=== PATIENT | male | born 1935 | race Caucasian/White ===

== ENCOUNTER 2016-05-21 13:05 | Outpatient (CLI) | payer OTHER ==
[2015-03-20 16:05] VITALS: BMI 25.8
[2016-05-21 13:24] LABS: BASOPHILS % (AUTO) 0.6 % (0.0-3.0); EOSINOPHILS # (AUTO) 0.1 K/ul (0.0-0.7); HEMATOCRIT 35.9 % (42.0-52.0); HEMOGLOBIN 12.5 g/dl (14.0-18.0); MEAN CORPUSCULAR HEMOGLOBIN 35.4 pg (27.0-31.0); MEAN CORPUSCULAR HGB CONC 34.8 (31.8-35.4); MEAN CORPUSCULAR VOLUME 101.7 fl (80.0-94.0); MONOCYTES # (AUTO) 0.3 K/uL (0.4-2.0); MONOCYTES % (AUTO) 8.9 (0-10); NEUTROPHILS # (AUTO) 1.9 K/ul (2.0-6.9); NEUTROPHILS % (AUTO) 56.5; PLATELET COUNT 158 10^3/uL (140-440); RED BLOOD COUNT 3.53 10^6/ul (4.70-6.10); WHITE BLOOD COUNT 3.36 K/ul (4.2-10.2)
== END 2016-05-21 13:06 | disposition home or self-care (01) ==
LOC: LAB 13:05
PROVIDERS: ATTEND Internal Medicine Hematology & Oncology
DX: D53.9 Nutritional anemia, unspecified (principal)
CPT/HCPCS: 36415; 85025

== ENCOUNTER 2016-08-02 10:29 | Inpatient (IN) | payer OTHER ==
[2016-08-02] MEDS ORDERED: SODIUM CHLORIDE 500 ML IV STA (10:42)
[2016-08-02 11:02] LABS: BASOPHILS % (AUTO) 0.2 % (0.0-3.0); EOSINOPHILS % (AUTO) 0.2 % (0.0-7.0); HEMATOCRIT 35.5 % (42.0-52.0); HEMOGLOBIN 12.3 g/dl (14.0-18.0); IMMATURE GRANULOCYTE % (AUTO) 0.3 % (0.0-5.0); LYMPHOCYTES # (AUTO) 0.2 K/uL (0.60-3.4); LYMPHOCYTES % (AUTO) 3.3 (10.0-50.0); MEAN CORPUSCULAR HEMOGLOBIN 35.2 pg (27.0-31.0); MEAN CORPUSCULAR HGB CONC 34.6 (31.8-35.4); MEAN CORPUSCULAR VOLUME 101.7 fl (80.0-94.0); MONOCYTES # (AUTO) 0.2 K/uL (0.4-2.0); MONOCYTES % (AUTO) 3.3 (0-10); NEUTROPHILS # (AUTO) 5.9 K/ul (2.0-6.9); NEUTROPHILS % (AUTO) 92.7; PLATELET COUNT 131 10^3/uL (140-440); RED BLOOD COUNT 3.49 10^6/ul (4.70-6.10); WHITE BLOOD COUNT 6.31 K/ul (4.2-10.2)
[2016-08-02 11:19] LABS: FLU INTERNAL QC INTERNAL QC VALID; RAPID FLU A NEGATIVE (NEGATIVE); RAPID FLU B NEGATIVE (NEGATIVE)
--- NOTE | 2016-08-02 11:26 | CT ---
EXAM: CT head without contrast HISTORY: Headache and dizziness COMPARISON: MRI brain 03/22/[address] head 03/20/2015 TECHNIQUE: Serial axial images of the brain were obtained from the skull base to the vertex without IV contrast. FINDINGS: The ventricles, cisterns and sulci demonstrate mild generalized volume loss. The galeano-wh ite matter junction is maintained. There is scattered low attenuation in the periventricular white matter relatively unchanged from prior exam. No midline shift or mass is identified. There is no a bnormal intra or extra-axial fluid collection. The paranasal sinuses demonstrates scattered sinus d isease. The mastoid air cells are clear. The osseous calvarium is intact. IMPRESSION: 1. No acute intracranial hemorrhage or abnormality. If there is concern for stroke, MRI brain may be obtained. 2. Mild generalized volume loss and scattered microangiopathy. 3. 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
--- NOTE | 2016-08-02 11:30 | CT ---
EXAM: CT chest without contrast HISTORY: Cough COMPARISON: Chest x-ray 03/20/2015 TECHNIQUE: Serial axial images of the chest were obtained from the lung apices to the upper abdomen without contrast. These were viewed in multiple planes. FINDINGS: The thyroid is normal. The visualized vessels demonstrate mild atherosclerotic disease o f the aorta. Changes of previous CABG are present. Pulmonary arteries are prominent. The heart is normal in size without pericardial effusion. There are nonpathologically enlarged mediastinal and hilar lymph nodes. There is no pneumothorax or pleural effusion. There is ground-glass and consolidation with airway t hickening in the right lower lobe. There is mild emphysematous disease. The left lower lobe demons trates patchy ground-glass and ground-glass nodularity with the largest nodule and ground-glass in t he left lower lobe measuring 1.5 cm. The airways are patent. The osseous structures demonstrate pr ior sternotomy. There is mild degenerative disease of the thoracic spine. The soft tissues in the upper abdomen on this limited evaluation are unremarkable. Please see same day CT abdomen pelvis to further evaluate. IMPRESSION: 1. Right lower lobe ground-glass and consolidative opacities with patchy nodular ground-glass in th e left lower lobe suggestive of pneumonia with airway spread of disease. Follow-up to resolution is recommended. 2. Scattered atherosclerotic disease with changes of prior CABG. 3. Mild emphysematous disease and degenerative disease of the spine.
--- NOTE | 2016-08-02 11:33 | CT ---
EXAM: CT abdomen pelvis without contrast HISTORY: Abdominal pain COMPARISON: CT abdomen pelvis 03/20/2015 TECHNIQUE: Serial axial images of the abdomen pelvis were performed from the lung bases through the inferior pelvis without contrast. These were viewed in multiple planes. FINDINGS: Lung bases are better evaluated on same day CT chest. Evaluation of the abdomen pelvis is limited due to lack of contrast. The liver is unremarkable. Th e gallbladder is normal. The spleen is normal. There is a 0.2 cm nonobstructing left renal stone. There is an exophytic low attenuation nodule in the left kidney measuring 1.1 cm in diameter with H [place] units suggestive of a cyst. This is relatively unchanged from prior CT abdomen pelvis. T he pancreas is unremarkable. The adrenal glands are normal. The stomach is mildly distended. The small bowel in the abdomen pelvis is unremarkable. The colon demonstrates diverticulosis withou t evidence of diverticulitis. The appendix is not visualized. There is normal distended urinary bl adder. The prostate is upper limit of normal for size. There is no free air or free fluid in the p veronica. There are no pathologically enlarged lymph nodes. The infrarenal abdominal aorta measures s lightly enlarged at 3 cm. The osseous structures demonstrate scattered degenerative disease. IMPRESSION: 1. No acute intra-abdominal abnormality to account for patient's symptoms. 2. Diverticulosis without diverticulitis. 3. Mild fusiform infrarenal abdominal aortic aneurysm measuring 3.0 cm in diameter and unchanged fr om prior exam. 4. No change in left renal stone and cyst. 5. Scattered moderate degenerative disease of the spine.
[2016-08-02 11:41] LABS: ABG PCO2 40.7 mmHg (35-45); ABG PH 7.378 (7.35-7.45)
[2016-08-02 11:42] LABS: ABG BASE EXCESS -1 (-2.0-2.0); ABG TCO2 25 (22.0-28.0)
[2016-08-02 11:43] LABS: ALBUMIN 3.6 g/dL (3.4-5.0); ALBUMIN/GLOBULIN RATIO 1.38; ANION GAP 10.8; BILIRUBIN,TOTAL 0.65 mg/dL (0.00-1.20); BUN/CREATININE RATIO 17.43; CALCIUM 8.8 mg/dL (8.2-10.2); CREATININE 1.09 mg/dL (0.60-1.10); POTASSIUM 3.8 mmol/L (3.5-5.1); TOTAL PROTEIN 6.2 g/dL (5.8-8.1); TROPONIN I 0.012 ng/ml (0.0000-0.4000)
--- NOTE | 2016-08-02 13:07 | CT ---
EXAM: CTA chest for PE HISTORY: Hypoxia with diminished level of consciousness and hypotension COMPARISON: CT chest 08/02/2016 same day TECHNIQUE: CTA of the chest was performed from the lung apices to the upper abdomen after 125 ml of Omnipaque IV contrast was administered using PE protocol. 3-D imaging was also provided. FINDINGS: There is no filling defect in the pulmonary arteries to the level of the subsegmental pul monary arteries. The heart is normal without signs of ventricular strain. The pulmonary arteries a re upper limit of normal for size. Heart is unchanged without pericardial effusion. There are scatt ered nonpathologically enlarged mediastinal lymph nodes. There is no pneumothorax. Lung findings are unchanged from same day examination. There is emphysem atous disease noted. The airways remain patent. The soft tissues in the upper abdomen are unchanged. The osseous structures are unremarkable. The vertebral bodies are unremarkable. IMPRESSION: 1. No pulmonary embolism. 2. Unchanged right lower lobe ground-glass and consolidative opacities with patchy nodularity in the left lower lobe that may represent pneumonia versus inflammation. 3. Scattered atherosclerotic disease with enlarged pulmonary arteries suggestive of arterial hyperte nsion. Number forehead mild scattered emphysematous disease.
--- NOTE | 2016-08-02 13:43 | ED.PDOC ---
General ED Provider: Dr. RENE MARRUFO Chief Complaint: Fever Stated Complaint: fever, cough , wekaness almost syncopal Time Seen by Physician: 10:30 (SEEN WITH OZIEL MEJIA PRESENT AT BEDSIDE AT ALL TIMES ) Mode of Arrival: Wheelchair Information Source: Patient Exam Limitations: No limitations Primary Care Provider: LIN ACUÑA Nursing and Triage Documentation Reviewed and Agree: Yes Respiratory Complaint Exam - Respiratory Complaint/Exam Onset/Duration: today Symptoms Are: Still present Timing: Intermittent Initial Severity: Moderate Current Severity: Moderate Location: Chest Character: Reports: Non-productive cough Aggravating: Reports: None Alleviating: Reports: Spontaneous resolution Associated Signs and Symptoms: Reports: Fever, Chills. Denies: Rapid breathing , Dyspnea, Chest pain, Pleuritic chest pain, Wheezing, Hemoptysis, Dizziness, Calf pain, Calf swelling, Edema, URI, Nasal congestion, Hoarseness, Sinus discomfort, Vomiting, Sore throat, Weight loss, Decreased oral intake, Increased thirst, Increased appetite, Increased urination History of Healthcare-Acquired Pneumonia: No Related Surgical History: Reports: None Pulmonary Embolism Risk Factors: Bedrest Pseudomonas Risk Factors: Reports: None Tuberculosis Risk Factors: Reports: None Status Asthmaticus Risk Factors: Reports: None Home Oxygen Use: No Recent Stress Test: No Recent Echo/LV Function: No Current Antibiotic Use: No Current Asthma Medication Use: No Respiratory Distress: Mild Inadequate Respiratory Effort: No Dysphagia Present: No Stridor Present: No JVD Present: No Retractions: Not Present Diminished Breath Sounds: No Sinus Tenderness: None Grunting Respirations: No Kussmaul Respirations: No Differential Diagnoses: COPD Exacerbation, Pneumonia, Bronchitis, Lower Resp. Infection Review of Systems - Review Of Systems Constitutional: Reports: Fever, Malaise, Weakness, Loss of appetite Eyes: Reports: No symptoms Ears, Nose, Mouth, Throat: Reports: No symptoms Respiratory: Reports: Cough Cardiac: Reports: Lightheadedness GI: Reports: No symptoms : Reports: No symptoms Musculoskeletal: Reports: No symptoms Skin: Reports: No symptoms Neurological: Reports: No symptoms Endocrine: Reports: No symptoms Hematologic/Lymphatic: Reports: No symptoms All Other Systems: Reviewed and Negative Past Medical History - Past Medical History Endocrine: Reports: Dyslipidemia Cardiovascular: Reports: CAD (on antihypertensives for poor heart function) Respiratory: Reports: None Hematological: Reports: Anemia (aplastic anemia) Gastrointestinal: Reports: None Genitourinary: Reports: None Neuro/Psych: Reports: None Musculoskeletal: Reports: None Cancer: Reports: None - Surgical History General Surgical History: Reports: CABG (x2) - Family History Family History: Reports: Unknown - Social History Smoking Status: Former smoker Hx Substance Use: No Alcohol Screening: None Physical Exam - Physical Exam Appearance: Ill-appearing Ill-appearing: Mild Pain Distress: Mild Eyes: DOLORES, EOMI, Conjunctiva clear ENT: Ears normal, Nose normal, Oropharynx normal Respiratory: Airway patent, Breath sounds clear, Breath sounds equal, Respirations nonlabored Cardiovascular: RRR, Pulses normal, No rub, No murmur GI/: Soft, Nontender, No masses, Bowel sounds normal, No Organomegaly Musculoskeletal: Normal strength, ROM intact, No edema, No calf tenderness Skin: Warm, Dry, Normal color Neurological: Sensation intact, Motor intact, Reflexes intact, Cranial nerves intact, Alert, Oriented Psychiatric: Affect appropriate, Mood appropriate Interpretation - Radiology Interpretation Radiology Interpretation By: Radiologist Radiology Results: Positive (pneumonia , negative P.E.) Re-Evaluation - Re-Evaluation Time of Re-Evaluation: 12:00 Status: Unchanged Vital Signs Stable: Yes Pain Level: 0 Appearance: NAD Lungs: Clear Skin: Warm and Dry Neuro: Alert and Oriented X3 CV: RRR - Re-Evaluation Time of Re-Evaluation: 13:48 (NO ACUTE EVENT IN ER ) Status: Unchanged Vital Signs Stable: Yes Pain Level: 0 Appearance: NAD Skin: Warm and Dry Neuro: Alert and Oriented X3 CV: RRR Critical Care Note - Critical Care Note Total Time (mins): 0 Course - Course Hematology/Chemistry: 08/02/16 10:50 08/02/16 10:50 Orders, Labs, Meds: Lab Review 08/02/16 08/02/16 10:41 10:50 WBC 6.31 RBC 3.49 L Hgb 12.3 L Hct 35.5 L MCV 101.7 H MCH 35.2 H MCHC 34.6 RDW Coeff of José 12.7 Plt Count 131 L Immature Gran % (Auto) 0.3 Neut % (Auto) 92.7 Lymph % (Auto) 3.3 L Miner % (Auto) 3.3 Eos % (Auto) 0.2 Baso % (Auto) 0.2 Immature Gran # (Auto) 0.0 Neut # 5.9 Lymph # 0.2 L Miner # 0.2 L Eos # 0.0 Baso # 0.0 D-Dimer (Manual) 1292.76 Puncture Site Rb O2 Saturation 84.0 L ABG pH 7.378 ABG pCO2 40.7 ABG pO2 49.0 L* ABG HCO3 24.0 ABG Total CO2 25 ABG Base Excess -1 FiO2 % 21.0 Sodium 139 Potassium 3.8 Chloride 109 H Carbon Dioxide 23 Anion Gap 10.8 BUN 19 H Creatinine 1.09 Estimated GFR (MDRD) 65.00 BUN/Creatinine Ratio 17.43 Glucose 95 Lactic Acid 14.0 Calcium 8.8 Total Bilirubin 0.65 AST 17 ALT 13 Alkaline Phosphatase 71 Total Creatine Kinase 53 Troponin I 0.0120 B-Natriuretic Peptide 117 H Total Protein 6.2 Albumin 3.6 Globulin 2.6 Albumin/Globulin Ratio 1.38 TSH 1.193 Free T4 0.89 Influenza A (Rapid) Negative Influenza B (Rapid) Negative Orders Category Date Time Status ADMIT PATIENT INPATIENT .TO [facility] (MONITORED BED) ADMISSION 08/02/16 13: 37 Ordered ABG DRAW REQUEST Stat CARDIO 08/02/16 10:41 Completed EKG-(ED ONLY) Stat CARDIO 08/02/16 10:40 Completed EKG-(IP & OP ONLY) DAILY CARDIO 08/03/16 06:00 Ordered EKG-(IP & OP ONLY) DAILY CARDIO 08/04/16 06:00 Ordered EKG-(IP & OP ONLY) DAILY CARDIO 08/05/16 06:00 Ordered NEBULIZER TREATMENT Routine CARDIO 08/02/16 13:39 Ordered OXYGEN Routine CARDIO 08/02/16 13:38 Ordered ACTIVITY .Complete BR CARE 08/02/16 13:37 Ordered NPO REMINDER: IMAGING ONCE CARE 08/02/16 12:04 Active TELEMETRY MONITORING TELE CARE 08/02/16 13:37 Ordered VITAL SIGNS Q8HR CARE 08/02/16 13:37 Ordered REGULAR DIET DIETARY 08/02/16 Dinner Ordered ED IV/MEDIPORT/POWERPORT .ONCE EMERGENCY 08/02/16 10:39 Active ABG Stat LAB 08/02/16 10:41 Completed B-TYPE NATRIURETIC PEPTIDE Stat LAB 08/02/16 10:50 Completed BLOOD CULTURE Stat LAB 08/02/16 10:50 Received CBC W/ AUTO DIFF DAILY@0600 LAB 08/03/16 06:00 Ordered CBC W/ AUTO DIFF DAILY@0600 LAB 08/04/16 06:00 Ordered CBC W/ AUTO DIFF DAILY@0600 LAB 08/05/16 06:00 Ordered CBC W/ AUTO DIFF DAILY@0600 LAB 08/06/16 06:00 Ordered CBC W/ AUTO DIFF DAILY@0600 LAB 08/07/16 06:00 Ordered CBC W/ AUTO DIFF DAILY@0600 LAB 08/08/16 06:00 Ordered CBC W/ AUTO DIFF DAILY@0600 LAB 08/09/16 06:00 Ordered CBC W/ AUTO DIFF DAILY@0600 LAB 08/10/16 06:00 Ordered CBC W/ AUTO DIFF DAILY@0600 LAB 08/11/16 06:00 Ordered CBC W/ AUTO DIFF DAILY@0600 LAB 08/12/16 06:00 Ordered CBC W/ AUTO DIFF DAILY@0600 LAB 08/13/16 06:00 Ordered CBC W/ AUTO DIFF DAILY@0600 LAB 08/14/16 06:00 Ordered CBC W/ AUTO DIFF DAILY@0600 LAB 08/15/16 06:00 Ordered CBC W/ AUTO DIFF DAILY@0600 LAB 08/16/16 06:00 Ordered CBC W/ AUTO DIFF DAILY@0600 LAB 08/17/16 06:00 Ordered CBC W/ AUTO DIFF DAILY@0600 LAB 08/18/16 06:00 Ordered CBC W/ AUTO DIFF DAILY@0600 LAB 08/19/16 06:00 Ordered CBC W/ AUTO DIFF DAILY@0600 LAB 08/20/16 06:00 Ordered CBC W/ AUTO DIFF DAILY@0600 LAB 08/21/16 06:00 Ordered CBC W/ AUTO DIFF DAILY@06 LAB 08/22/16 06:00 Ordered CBC W/ AUTO DIFF Stat LAB 08/02/16 10:50 Completed COMPREHENSIVE METABOLIC PANEL DAILY@0600 LAB 08/03/16 06:00 Ordered COMPREHENSIVE METABOLIC PANEL DAILY@0600 LAB 08/04/16 06:00 Ordered COMPREHENSIVE METABOLIC PANEL DAILY@0600 LAB 08/05/16 06:00 Ordered COMPREHENSIVE METABOLIC PANEL DAILY@0600 LAB 08/06/16 06:00 Ordered COMPREHENSIVE METABOLIC PANEL DAILY@0600 LAB 08/07/16 06:00 Ordered COMPREHENSIVE METABOLIC PANEL DAILY@0600 LAB 08/08/16 06:00 Ordered COMPREHENSIVE METABOLIC PANEL DAILY@0600 LAB 08/09/16 06:00 Ordered COMPREHENSIVE METABOLIC PANEL DAILY@0600 LAB 08/10/16 06:00 Ordered COMPREHENSIVE METABOLIC PANEL DAILY@0600 LAB 08/11/16 06:00 Ordered COMPREHENSIVE METABOLIC PANEL DAILY@0600 LAB 08/12/16 06:00 Ordered COMPREHENSIVE METABOLIC PANEL DAILY@0600 LAB 08/13/16 06:00 Ordered COMPREHENSIVE METABOLIC PANEL DAILY@0600 LAB 08/14/16 06:00 Ordered COMPREHENSIVE METABOLIC PANEL DAILY@0600 LAB 08/15/16 06:00 Ordered COMPREHENSIVE METABOLIC PANEL DAILY@0600 LAB 08/16/16 06:00 Ordered COMPREHENSIVE METABOLIC PANEL DAILY@0600 LAB 08/17/16 06:00 Ordered COMPREHENSIVE METABOLIC PANEL DAILY@0600 LAB 08/18/16 06:00 Ordered COMPREHENSIVE METABOLIC PANEL DAILY@0600 LAB 08/19/16 06:00 Ordered COMPREHENSIVE METABOLIC PANEL DAILY@0600 LAB 08/20/16 06:00 Ordered COMPREHENSIVE METABOLIC PANEL DAILY@0600 LAB 08/21/16 06:00 Ordered COMPREHENSIVE METABOLIC PANEL DAILY@0600 LAB 08/22/16 06:00 Ordered COMPREHENSIVE METABOLIC PANEL Stat LAB 08/02/16 10:50 Completed CREATINE KINASE Q8H LAB 08/02/16 19:45 Ordered CREATINE KINASE Q8H LAB 08/03/16 03:45 Ordered CREATINE KINASE Stat LAB 08/02/16 10:50 Completed D-DIMER Stat LAB 08/02/16 10:50 Completed FREE T4 (FREE THYROXINE) Stat LAB 08/02/16 10:50 Completed LACTIC ACID Stat LAB 08/02/16 10:50 Completed MOLECULAR GROUP A STREP Stat LAB 08/02/16 10:50 Results RAPID FLU A/B Stat LAB 08/02/16 10:50 Completed STREP SCREEN Stat LAB 08/02/16 10:50 Results THYROID STIMULATING HORMONE Stat LAB 08/02/16 10:50 Completed TROPONIN I Q8H LAB 08/02/16 19:45 Ordered TROPONIN I Q8H LAB 08/03/16 03:45 Ordered TROPONIN I Stat LAB 08/02/16 10:50 Completed 0.9 % Sodium Chloride [Saline Flush] MEDS 08/02/16 10:39 Active 1 syr IVF PRN PRN Ceftriaxone Sodium [Rocephin] 1 gm MEDS 08/03/16 09:00 Ordered 0.9 % Sodium Chloride [Sodium Chloride] 50 ml IV DAILY Furosemide [Lasix Tab] MEDS 08/04/16 09:00 Ordered 20 mg PO EVERY OTHER DAY Ipratropium/Albuterol Neb [Duoneb] MEDS 08/02/16 18:00 Ordered 1 vial NEB RTQ6H Lisinopril [Zestril] MEDS 08/03/16 09:00 Ordered 10 mg PO DAILY Potassium Chloride [K-Tab ER] MEDS 08/03/16 09:00 Ordered 1 tab PO DAILY Pramipexole Di-HCl [Mirapex] MEDS 08/02/16 21:00 Ordered 1 mg PO BID Pravastatin Sodium [Pravachol] MEDS 08/02/16 21:00 Ordered 40 mg PO BEDTIME Sodium Chloride 0.9% [Sodium Chloride] 1,000 ml MEDS 08/02/16 14:00 Ordered IV 75 mls/hr Sodium Chloride 0.9% [Sodium Chloride] 500 ml MEDS 08/02/16 10:[address] ABDOMEN/PELVIS WO CONTRAST Stat RADS 08/02/16 10:[address] CHEST PE PROTOCOL Stat RADS 08/02/16 12:[address] CHEST W/O CONTRAST Stat RADS 08/02/16 10:[address] HEAD W/O CONTRAST Stat RADS 08/02/16 10:44 Completed Medications Generic Name Dose Route Start Last Admin Trade Name Freq PRN Reason Stop Dose Admin Albuterol/Ipratropium 1 vial 08/02/16 18:00 Duoneb NEB RTQ6H ZOË Furosemide 20 mg 08/04/16 09:00 Lasix Tab PO EVERY OTHER DAY ZOË Ceftriaxone Sodium 1 gm/ 50 mls @ 75 mls/hr 08/03/16 09:00 Sodium Chloride IV DAILY ZOË Sodium Chloride 1,000 mls @ 75 mls/hr 08/02/16 14:00 Sodium Chloride IV .[id number] ZOË Lisinopril 10 mg 08/03/16 09:00 Zestril PO DAILY ZOË Non-Formulary Medication 1 tab 08/03/16 09:00 Potassium Chloride [K-Tab Er] PO DAILY ZOË Pramipexole Dihydrochloride 1 mg 08/02/16 21:00 Mirapex PO BID ZOË Pravastatin Sodium 40 mg 08/02/16 21:00 Pravachol PO BEDTIME ZOË Sodium Chloride 1 syr 08/02/16 10:39 Saline Flush IVF PRN PRN To flush IV Discontinued Medications Generic Name Dose Route Start Last Admin Trade Name Evi PRN Reason Stop Dose Admin Sodium Chloride 500 mls @ 500 mls/hr 08/02/16 10:42 08/02/16 11:10 Sodium Chloride IV 08/02/16 11:41 500 mls/hr BOLUS STA Administration Vital Signs: Temp Pulse Resp BP Pulse Ox 08/02/16 10:30 101.6 F H 112 H 20 84/47 L 87 L Departure - Departure Time of Disposition: 13:45 (ALL IMAGING AND LANS DISCUSSED WITH RN AT BEDSIDE COPY OF IMAGING GIVEN TO PT'S FAMILY ) Disposition: ADMITTED INPATIENT Discharge Problem: Fever Pneumonia Qualifiers: Pneumonia type: due to unspecified organism Laterality: left Instructions: Pneumonitis (ED) Condition: Fair Pt referred to PMD for follow-up: Yes ([facility] [facility]( ADMITT TO [facility] NOW) DAILY ROCEPHIN TO BE STARTED ) Allergies/Adverse Reactions: Allergies No Known Allergies Allergy (Unverified 08/02/16 10:33) Home Medications: Ambulatory Orders Furosemide 20 mg PO EVERY OTHER DAY 03/20/15 Lisinopril [Zestril] 10 mg PO DAILY 03/20/15 Potassium Chloride [K-Tab ER] 1 tab PO DAILY 03/20/15 Pravastatin Sodium [Pravachol] 40 mg PO BEDTIME 03/20/15 Doxazosin Mesylate 4 mg PO DAILY #1 tablet 03/22/15 Pramipexole Di-HCl [Mirapex] 1 mg PO BID #1 tablet 03/22/15 Disposition Discussed With: Patient, Family
[2016-08-02] MEDS ORDERED: ROCEPHIN 1 GM in SODIUM CHLORIDE 50 ML IV STA (13:50)
[2016-08-02] MEDS ORDERED: ROCEPHIN ONE (13:58)
[2016-08-02] MEDS ORDERED: SODIUM CHLORIDE 1,000 ML IV SCH (14:00)
[2016-08-02 14:29] VITALS: BMI 24.4
[2016-08-02] MEDS: DUONEB NEB SCH ×2 (17:03→23:17)
[2016-08-02] MEDS ORDERED: SODIUM CHLORIDE 250 ML IV STA ×2 (17:15→19:05)
[2016-08-02 20:26] LABS: CREATINE KINASE 140 U/L
[2016-08-02 20:27] LABS: CREATINE KINASE MB 2.1 ng/ml (0.0-3.6)
[2016-08-02] MEDS: MIRAPEX PO SCH (22:20)
[2016-08-02] MEDS: PRAVACHOL PO SCH (22:20)
[2016-08-02] MEDS ORDERED: SODIUM CHLORIDE 200 ML IV STA (23:09)
[2016-08-03] MEDS: SODIUM CHLORIDE 1,000 ML IV SCH ×2 (03:19→20:59)
[2016-08-03 05:01] LABS: BASOPHILS % (AUTO) 0.2 % (0.0-3.0); EOSINOPHILS % (AUTO) 0.2 % (0.0-7.0); HEMATOCRIT 29.4 % (42.0-52.0); IMMATURE GRANULOCYTE % (AUTO) 0.8 % (0.0-5.0); LYMPHOCYTES # (AUTO) 0.9 K/uL (0.60-3.4); LYMPHOCYTES % (AUTO) 8.6 (10.0-50.0); MEAN CORPUSCULAR HEMOGLOBIN 35.2 pg (27.0-31.0); MEAN CORPUSCULAR VOLUME 103.5 fl (80.0-94.0); MONOCYTES # (AUTO) 0.4 K/uL (0.4-2.0); MONOCYTES % (AUTO) 4.1 (0-10); NEUTROPHILS # (AUTO) 9.2 K/ul (2.0-6.9); NEUTROPHILS % (AUTO) 86.1; PLATELET COUNT 111 10^3/uL (140-440); RED BLOOD COUNT 2.84 10^6/ul (4.70-6.10); WHITE BLOOD COUNT 10.62 K/ul (4.2-10.2)
[2016-08-03] MEDS: DUONEB NEB SCH ×4 (05:17→23:05)
[2016-08-03 05:27] LABS: ALBUMIN 2.7 g/dL (3.4-5.0); ALBUMIN/GLOBULIN RATIO 1.13; BILIRUBIN,TOTAL 0.66 mg/dL (0.00-1.20); BUN/CREATININE RATIO 21.23; CALCIUM 7.9 mg/dL (8.2-10.2); CREATININE 1.13 mg/dL (0.60-1.10); TOTAL PROTEIN 5.1 g/dL (5.8-8.1)
[2016-08-03 05:42] LABS: TROPONIN I 0.012 ng/ml (0.0000-0.4000)
[2016-08-03] MEDS: MICRO-K CAP PO SCH (08:27)
[2016-08-03] MEDS: MIRAPEX PO SCH (08:27)
[2016-08-03] MEDS: ROCEPHIN 1 GM in SODIUM CHLORIDE 50 ML IV SCH (08:29)
[2016-08-03] MEDS ORDERED: NON-FORMULARY MEDICATION (Potassium Chloride [K-Tab Er] 1 TAB) PO SCH (09:00)
[2016-08-03] MEDS ORDERED: ZESTRIL PO SCH (09:00)
--- NOTE | 2016-08-03 09:18 | PCM.PROG ---
Attending Provider: ATTENDING PROVIDER: Dr. HENRY CROSS DATE OF SERVICE: 08/03/16 SUBJECTIVE: This 80 year old WHITE/ M was hospitalized 08/02/16. The patient is admitted with pneumonia per ct scan; however, the patient clinically does not have any coughing, lungs are clear. The patient states he had been dizzy for a couple of days - thought he was taking too much of his water pill and had cut down on it and became dehydrated. The is in the room. The patient is more awake and alert. Blood pressure has been low. REVIEW OF SYSTEMS: CONSTITUTIONAL: No fever, no chills. ENDOCRINE: No weight loss or weight gain. HEENT: No sinus drainage, no sore throat. CVS: No angina symptoms. No CHF symptoms. No palpitations. No atypical chest pain for CAD. No shortness of breath. RESPIRATORY: No cough, no hemoptysis. GI: No melena. No abdominal pain. No nausea, no vomiting. : No hematuria. No polyuria. SKIN: No rash. No wounds. MUSCULOSKELETAL: No pain. CRIMINAL INVESTIGATOR CUSTOMS: No blackout, no dizziness. No headache. No double vision. PSYCHIATRIC: Not anxious; no depression. No suicidal thoughts. No homicidal thoughts. PHYSICAL EXAMINATION: GENERAL: Lying in bed in no distress. VITAL SIGNS: Temperature 99 F, Pulse 73, Respiratory Rate 18, BP 92/32, Pulse Ox 91% HEENT: Normocephalic, atraumatic. Mucosa is dry, pallor positive. NECK: No JVP, no carotid bruit. No lymphadenopathy. CARDIAC: S1, S2, no S3. No murmur, gallop or regurgitation. LUNGS: Clear to auscultation. ABDOMEN: Soft, non-tender. Bowel sounds active. No rigidity, guarding or CVA tenderness. EXTREMITIES: No clubbing, cyanosis or edema. NEUROLOGIC: Awake, alert and oriented x3. LYMPHATIC: No palpable lymph nodes SKIN: Not dry. Intact. MUSCULOSKELETAL: No joint swelling. LAB REVIEW: 08/03/16 04:15 08/03/16 04:15 08/03/16 04:15: WBC 10.62 H, RBC 2.84 L, Hgb 10.0 L, Hct 29.4 L D, MCV 103.5 H, MCH 35.2 H, MCHC 34.0, RDW Coeff of José 13.1, Plt Count 111 L, Immature Gran % ( Auto) 0.8, Neut % (Auto) 86.1, Lymph % (Auto) 8.6 L, [place] % (Auto) 4.1, Eos % ( Auto) 0.2, Baso % (Auto) 0.2, Immature Gran # (Auto) 0.1, Neut # 9.2 H, Lymph # 0.9, [place] # 0.4, Eos # 0.0, Baso # 0.0, Sodium 139, Potassium 4.0, Chloride 110 H, Carbon Dioxide 23, Anion Gap 10.0, BUN 24 H, Creatinine 1.13 H, Estimated GFR (MDRD) 63.00, BUN/Creatinine Ratio 21.23, Glucose 99, Calcium 7.9 L, Total Bilirubin 0.66, AST 19, ALT 9 L, Alkaline Phosphatase 54 L, Total Creatine Kinase 318, CK-MB (CK-2) 3.0, CK-MB (CK-2) % 0.78148, Troponin I 0.0120, Total Protein 5.1 L, Albumin 2.7 L, Globulin 2.4, Albumin/Globulin Ratio 1.13 08/02/16 19:50: Total Creatine Kinase 140, CK-MB (CK-2) 2.1, CK-MB (CK-2) % 1.25711, Troponin I < 0.0100 ASSESSMENT: 1. Hypotension secondary to medications 2. Dyslipidemia 3. Chronic kidney disease 4. Anemia 5. Dizziness 6. BPH PLAN: 1. Have the patient up and about; watch for dizziness. 2. Continue IV fluids. 3. Continue to hold Lasix, Doxazosin and Lisinopril Plan and coordination of the patient's care discussed in the presence of Insulation Packer and nurse. CONDITION: Stable SCRIBED BY: ROBERTO STEWART Derivatives Trader scribed while in presence of service performed by Dr. HENRY CROSS on 08/03/16 ([id number])
[2016-08-03] MEDS: PRAVACHOL PO SCH (20:18)
[2016-08-04 04:40] LABS: BASOPHILS % (AUTO) 0.2 % (0.0-3.0); EOSINOPHILS # (AUTO) 0.1 K/ul (0.0-0.7); EOSINOPHILS % (AUTO) 1.1 % (0.0-7.0); HEMATOCRIT 28.6 % (42.0-52.0); HEMOGLOBIN 9.9 g/dl (14.0-18.0); IMMATURE GRANULOCYTE % (AUTO) 0.5 % (0.0-5.0); LYMPHOCYTES # (AUTO) 0.6 K/uL (0.60-3.4); LYMPHOCYTES % (AUTO) 8.9 (10.0-50.0); MEAN CORPUSCULAR HEMOGLOBIN 35.5 pg (27.0-31.0); MEAN CORPUSCULAR HGB CONC 34.6 (31.8-35.4); MEAN CORPUSCULAR VOLUME 102.5 fl (80.0-94.0); MONOCYTES # (AUTO) 0.4 K/uL (0.4-2.0); MONOCYTES % (AUTO) 5.3 (0-10); NEUTROPHILS # (AUTO) 5.6 K/ul (2.0-6.9); PLATELET COUNT 96 10^3/uL (140-440); RED BLOOD COUNT 2.79 10^6/ul (4.70-6.10); WHITE BLOOD COUNT 6.65 K/ul (4.2-10.2)
[2016-08-04] MEDS: DUONEB NEB SCH ×4 (05:00→23:11)
[2016-08-04 05:05] LABS: ALBUMIN 2.7 g/dL (3.4-5.0); ALBUMIN/GLOBULIN RATIO 1.08; ANION GAP 8.7; BILIRUBIN,TOTAL 0.54 mg/dL (0.00-1.20); POTASSIUM 3.7 mmol/L (3.5-5.1); TOTAL PROTEIN 5.2 g/dL (5.8-8.1)
[2016-08-04] MEDS ORDERED: LASIX TAB PO SCH (06:30)
[2016-08-04] MEDS ORDERED: DECADRON 4 MG/ML SDV IM STA (08:01)
[2016-08-04 08:44] LABS: ABG PH 7.386 (7.35-7.45)
[2016-08-04 08:45] LABS: ABG BASE EXCESS -5 (-2.0-2.0); ABG HCO3 20.5 (22.0-26.0); ABG PCO2 34.1 mmHg (35-45); ABG TCO2 21 (22.0-28.0)
[2016-08-04] MEDS: ROCEPHIN 1 GM in SODIUM CHLORIDE 50 ML IV SCH (09:02)
[2016-08-04] MEDS: ZESTRIL PO SCH (09:06)
[2016-08-04] MEDS: MICRO-K CAP PO SCH (09:07)
--- NOTE | 2016-08-04 09:18 | HP ---
DATE OF SERVICE: 08/02/16 REASON FOR HOSPITALIZATION: Weakness, tiredness and dizzy. HISTORY OF PRESENT ILLNESS: This is a 80 year old male with history of aplastic anemia and history of coronary artery bypass surgery. He went to restorationist and tried to get out of the car he fell down and went to the restorationist and finished it but was feeling weak and tired so came to the emergency room, seen by Dr. Diaz. The patient was hypotensive and fever of 101. In the processes of evaluation his WBC was normal , hgb 12.3, ABG showed to pH 7.37, pCO2 40.7, pO2 41.0. D-dimer 1,292. BUN and creatinine was normal and patient was given a Bolus of fluid. CT of the chest was given which showed the bibasilar pneumonia. At that time the patient was admitted to the hospital with pneumonia and hypotension. On further questioning there was a question doubt that the patient has been taken excess of the water pill as per him. The patient has been taking more water pill lately, did not given any clear reason why. At that time the patient was admitted to the hospital for the IV antibiotics and IV fluids. REVIEW OF SYSTEMS: CONSTITUTIONAL: No night sweats. Weakness and tiredness. . No fever or chills. HEENT: Eyes: No visual changes. No eye pain. No eye discharge. ENT: No runny nose. No epistaxis. No sinus pain. No sore throat. No odynophagia. No ear pain. No congestion. RESPIRATORY: No cough, no congestion. No hemoptysis. CARDIOVASCULAR: No angina symptoms. No CHF symptoms. No atypical chest pain for CAD. No palpitations. No shortness of breath. No PND. No Orthopnea. GASTROINTESTINAL: No abdominal pain. No nausea or vomiting. No diarrhea or constipation. No hematemesis. No hematochezia. GENITOURINARY: No urgency. No frequency. No dysuria. No hematuria. No obstructive symptoms. No discharge. No pain. No significant abnormal bleeding. MUSCULOSKELETAL: No musculoskeletal pain. No joint swelling. No arthritis. NEUROLOGICAL: No headache. No neck pain. No syncope. No seizures. Dizziness. PSYCHIATRIC: Not anxious. No depression. No suicidal thoughts. No homicidal thoughts. SKIN: No rash. No lesions. No wounds. ENDOCRINE: No unexplained weight loss. No weight gain. HEMATOLOGIC/LYMPHATIC: No anemia. No purpura. No petechiae. No prolonged or excessive bleeding. No palpable lymph nodes. PERSONAL/FAMILY/SOCIAL HISTORY: The patient is and lives with the . Independent of ALD's. Family History is significant for the heart problems. PAST MEDICAL/SURGICAL PROBLEMS: Coronary artery disease Status post stents Coronary artery bypass surgery Hypertension Dyslipidemia Osteoarthritis DJD spine Hiatal hernia Bypass graft Hiatal hernia repair. MEDICATIONS: Pravachol Potassium Zestril Doxazosin Viagra Voltaren Mirapex Protonix Lasix ALLERGIES: No known allergies. PHYSICAL EXAMINATION: VITAL SIGNS: Blood pressure 86/51, respiratory 16, heart rate 88 and temperature 98.7. GENERAL: Sick looking man laying in the bed and no in any distress. HEENT: Head normocephalic, atraumatic. Eyes: Extraocular muscles are intact. Pupils are equal, round and reactive to light and accommodation. Ears: No lesions. Nose appeared normal. Throat: No exudate or erythema. Mucosa dry. Pallor positive. No icterus. NECK: Supple. No JVD, no carotid bruit. No lymphadenopathy or thyromegaly. LUNGS: Decreased with basilar crackles. Percussion note normal. Chest symmetrical. HEART: S1, S2, no S3. No murmurs. No cyanosis or clubbing. No ascites. Pulses: Dorsalis pedis and posterior tibial pulses +1 to +2 both sides. ABDOMEN: Soft. Nontender. Bowel sounds active. No CVA tenderness. No mass felt. EXTREMITIES: No edema. Full range of motion of all extremities, equal. NEUROLOGIC: No focal deficit. Cranial nerves II through XII are grossly intact. No headache, no double vision or headache. Awake and alert. SKIN: Not dry. Intact. Turgor - normal. LYMPHATIC: No palpable lymph nodes/no lymphedema. MUSCULOSKELETAL: Normal joints with no swelling. Muscle tone is normal. LABS: Sodium 139, potassium 3.8, chloride 109, bicarb 23, BUN 19, creatinine 1.09, lactic acid 14, WBC 6.31, hgb 12.3, hct 35.5 and plt count 131. Serology flu negative and rapid strep negative. ASSESSMENT: 1. Pneumonia, community acquired 2. Hypotension secondary to the sepsis versus medication side effect 3. Coronary artery disease bypass surgery 4. BPH 5. Hypertension 6. Dyslipidemia PLAN: 1. Admit patient to the regular floor 2. Hold the Lisinopril, Doxazosin and Lasix 3. IV fluid Bolus 250ml 4. Rocephin 1 gram daily 5. DUO NEBS 6. Solu-Medrol 7. Daily I&O's 8. Regular diet Will follow the patient in daily rounds. TIME SPENT: More than 55 minutes. MTDD
--- NOTE | 2016-08-04 10:35 | PCM.PROG ---
Attending Provider: ATTENDING PROVIDER: Dr. HENRY CROSS DATE OF SERVICE: 08/04/16 SUBJECTIVE: This 80 year old WHITE/ M was hospitalized 08/02/16. The patient states he is feeling better; has a low grade fever. He has been up walking without any problems. No dizziness no new problems and wants to go home. Appetite is good. REVIEW OF SYSTEMS: CONSTITUTIONAL: Low grade fever. No chills. ENDOCRINE: No weight loss or weight gain. HEENT: No sinus drainage, no sore throat. CVS: No angina symptoms. No CHF symptoms. No palpitations. No atypical chest pain for CAD. No shortness of breath. RESPIRATORY: No cough, no hemoptysis. GI: No melena. No abdominal pain. No nausea, no vomiting. : No hematuria. No polyuria. SKIN: No rash. No wounds. MUSCULOSKELETAL: No pain. COORDINATOR CARDIOPULMONARY SERVICES: No blackout, no dizziness. No headache. No double vision. PSYCHIATRIC: Not anxious; no depression. No suicidal thoughts. No homicidal thoughts. PHYSICAL EXAMINATION: GENERAL: Lying in bed in no distress. VITAL SIGNS: Temperature 99.2 F, Pulse 55, Respiratory Rate 16, BP 108/58, Pulse Ox 98% HEENT: Normocephalic, atraumatic. Mucosa is dry, pallor positive. NECK: No JVP, no carotid bruit. No lymphadenopathy. CARDIAC: S1, S2, no S3. No murmur, gallop or regurgitation. LUNGS: Clear to auscultation. ABDOMEN: Soft, non-tender. Bowel sounds active. No rigidity, guarding or CVA tenderness. EXTREMITIES: No clubbing, cyanosis or edema. NEUROLOGIC: Awake, alert and oriented x3. LYMPHATIC: No palpable lymph nodes SKIN: Not dry. Intact. MUSCULOSKELETAL: No joint swelling. LAB REVIEW: 08/04/16 03:45 08/04/16 03:45 08/04/16 03:45: WBC 6.65, RBC 2.79 L, Hgb 9.9 L, Hct 28.6 L, MCV 102.5 H, MCH 35.5 H, MCHC 34.6, RDW Coeff of José 13.4, Plt Count 96 L, Immature Gran % (Auto ) 0.5, Neut % (Auto) 84.0, Lymph % (Auto) 8.9 L, [place] % (Auto) 5.3, Eos % (Auto ) 1.1, Baso % (Auto) 0.2, Immature Gran # (Auto) 0.0, Neut # 5.6, Lymph # 0.6, [place] # 0.4, Eos # 0.1, Baso # 0.0, Sodium 138, Potassium 3.7, Chloride 111 H, Carbon Dioxide 22 L, Anion Gap 8.7, BUN 19 H, Creatinine 1.00, Estimated GFR ( MDRD) 72.00, BUN/Creatinine Ratio 19.00, Glucose 106, Calcium 8.0 L, Total Bilirubin 0.54, AST 23, ALT 13, Alkaline Phosphatase 63, Total Protein 5.2 L, Albumin 2.7 L, Globulin 2.5, Albumin/Globulin Ratio 1.08 ASSESSMENT: 1. Febrile illness 1. Hypotension secondary to medications, resolved 2. Dyslipidemia 3. Chronic kidney disease 4. Anemia 5. Dizziness 6. BPH PLAN: 1. Continue Zestril 2.5 mg 2. Up and about to make sure patient is not having any dizziness 3. Monitor blood pressure this morning 4. Increase hydration 5. Continue Rocephin and Duonebs 6. Decadron 4 mg IV 7. Keflex 500 mg b.i.d. times 7 days Plan and coordination of the patient's care discussed in the presence of Motor Vehicle Licence Examiner and nurse. CONDITION: Stable SCRIBED BY: ROBERTO STEWART Skiver Heel Tap scribed while in presence of service performed by Dr. HENRY CROSS on 08/04/16 ([id number])
--- NOTE | 2016-08-04 11:46 | US ---
EXAM: Bilateral carotid artery Doppler History: Dizziness and syncope. Technique: Multiple sonographic images through the bilateral internal carotid arteries were obtaine d. Color duplex Doppler was used to interrogate vascular flow. Findings: The right ICA peak systolic velocity is within normal limits measuring 0.8 meters per second. The r ight ICA/cca PSV ratio is normal at 0.8. The right vertebral artery is patent and demonstrates anteg rade flow. Stephenson scale images demonstrate mild to moderate plaque buildup within the right internal carotid artery. The left ICA peak systolic velocity is within normal limits measuring 1.0 meters per second. The le ft ICA/cca PSV ratio is normal at 1.1. The left vertebral artery is patent and demonstrates antegra de flow. Stephenson scale images demonstrate mild to moderate plaque buildup within the left internal car otid artery Impression: No significant hemodynamic stenosis of the bilateral internal carotid arteries.
[2016-08-04] MEDS: SODIUM CHLORIDE 1,000 ML IV SCH (11:59)
[2016-08-04] MEDS: PRAVACHOL PO SCH (20:45)
[2016-08-05] MEDS: SODIUM CHLORIDE 1,000 ML IV SCH ×2 (00:52→09:36)
[2016-08-05 04:49] LABS: HEMATOCRIT 30.4 % (42.0-52.0); HEMOGLOBIN 10.7 g/dl (14.0-18.0); IMMATURE GRANULOCYTE % (AUTO) 0.6 % (0.0-5.0); LYMPHOCYTES # (AUTO) 0.5 K/uL (0.60-3.4); LYMPHOCYTES % (AUTO) 7.5 (10.0-50.0); MEAN CORPUSCULAR HEMOGLOBIN 35.5 pg (27.0-31.0); MEAN CORPUSCULAR HGB CONC 35.2 (31.8-35.4); MONOCYTES # (AUTO) 0.4 K/uL (0.4-2.0); MONOCYTES % (AUTO) 5.5 (0-10); NEUTROPHILS # (AUTO) 5.6 K/ul (2.0-6.9); NEUTROPHILS % (AUTO) 86.4; PLATELET COUNT 115 10^3/uL (140-440); RED BLOOD COUNT 3.01 10^6/ul (4.70-6.10); WHITE BLOOD COUNT 6.53 K/ul (4.2-10.2)
[2016-08-05] MEDS: DUONEB NEB SCH ×2 (05:00→11:24)
[2016-08-05 05:12] LABS: ALBUMIN 2.8 g/dL (3.4-5.0); ALBUMIN/GLOBULIN RATIO 0.85; ANION GAP 10.4; BILIRUBIN,TOTAL 0.34 mg/dL (0.00-1.20); BUN/CREATININE RATIO 18.27; CALCIUM 8.6 mg/dL (8.2-10.2); CREATININE 0.93 mg/dL (0.60-1.10); POTASSIUM 4.4 mmol/L (3.5-5.1); TOTAL PROTEIN 6.1 g/dL (5.8-8.1)
[2016-08-05 05:20] VITALS: BP 122/62; TEMP 97.8
--- NOTE | 2016-08-05 08:25 | PCM.PROG ---
Attending Provider: ATTENDING PROVIDER: Dr. HENRY CROSS DATE OF SERVICE: 08/05/16 SUBJECTIVE: This 80 year old WHITE/ M was hospitalized 08/02/16. The patient states he is feeling much better and is ready to go home. He walked yesterday and did well, a little unsteady at first but got better. REVIEW OF SYSTEMS: CONSTITUTIONAL: No fever, no chills. ENDOCRINE: No weight loss or weight gain. HEENT: No sinus drainage, no sore throat. CVS: No angina symptoms. No CHF symptoms. No palpitations. No atypical chest pain for CAD. No shortness of breath. No PND, no orthopnea. RESPIRATORY: No cough, no hemoptysis. GI: No melena. No abdominal pain. No nausea, no vomiting. : No hematuria. No polyuria. SKIN: No rash. No wounds. MUSCULOSKELETAL: No pain. VOLLEYBALL PLAYER: No blackout, no dizziness. No headache. No double vision. PSYCHIATRIC: Not anxious; no depression. No suicidal thoughts. No homicidal thoughts. PHYSICAL EXAMINATION: GENERAL: Sitting up in bed in no distress. VITAL SIGNS: Temperature 97.8 F, Pulse 71, Respiratory Rate 16, BP 122/62, Pulse Ox 94% HEENT: Normocephalic, atraumatic. Mucosa is dry, pallor positive. NECK: No JVP, no carotid bruit. No lymphadenopathy. CARDIAC: S1, S2, no S3. Systolic murmur. LUNGS: Decreased breath sounds. Clear to auscultation. ABDOMEN: Soft, non-tender. Bowel sounds active. No rigidity, guarding or CVA tenderness. EXTREMITIES: No clubbing, cyanosis or edema. NEUROLOGIC: Awake, alert and oriented x3. LYMPHATIC: No palpable lymph nodes SKIN: Not dry. Intact. MUSCULOSKELETAL: No joint swelling. LAB REVIEW: 08/05/16 04:42 08/05/16 04:42 08/05/16 04:42: WBC 6.53, RBC 3.01 L, Hgb 10.7 L, Hct 30.4 L, MCV 101.0 H, MCH 35.5 H, MCHC 35.2, RDW Coeff of José 13.0, Plt Count 115 L, Immature Gran % (Auto ) 0.6, Neut % (Auto) 86.4, Lymph % (Auto) 7.5 L, [place] % (Auto) 5.5, Eos % (Auto ) 0.0, Baso % (Auto) 0.0, Immature Gran # (Auto) 0.0, Neut # 5.6, Lymph # 0.5 L , [place] # 0.4, Eos # 0.0, Baso # 0.0, Sodium 139, Potassium 4.4, Chloride 113 H, Carbon Dioxide 20 L, Anion Gap 10.4, BUN 17, Creatinine 0.93, Estimated GFR ( MDRD) 79.00, BUN/Creatinine Ratio 18.27, Glucose 143 H, Calcium 8.6, Total Bilirubin 0.34, AST 27, ALT 19, Alkaline Phosphatase 67, Total Protein 6.1, Albumin 2.8 L, Globulin 3.3, Albumin/Globulin Ratio 0.85 08/04/16 08:21: Puncture Site Rbrach, O2 Saturation 92.0 L, ABG pH 7.386, ABG pCO2 34.1 L, ABG pO2 64.0 L, ABG HCO3 20.5 L, ABG Total CO2 21 L, ABG Base Excess -5 L, FiO2 % 21.0 ASSESSMENT: 1. Febrile illness, resolved 1. Hypotension secondary to medications, resolved 2. Dyslipidemia 3. Chronic kidney disease 4. Anemia 5. Dizziness 6. BPH PLAN: 1. Holter monitor 2. Discharge home 3. Keflex 500 b.i.d. for five days 4. D/C Rocephin 5. PFT today 6. Three-step today Plan and coordination of the patient's care discussed in the presence of Loan Operations Manager and nurse. CONDITION: Stable SCRIBED BY: ROBERTO STEWART Senior Radiation Therapist scribed while in presence of service performed by Dr. HENRY CROSS on 08/05/16 ([id number])
[2016-08-05] MEDS: ROCEPHIN 1 GM in SODIUM CHLORIDE 50 ML IV SCH (08:52)
[2016-08-05] MEDS: MICRO-K CAP PO SCH (08:53)
[2016-08-05] MEDS: ZESTRIL PO SCH (08:53)
[2016-08-05] MEDS ORDERED: CARDURA PO SCH (09:00)
[2016-08-05] MEDS ORDERED: NON-FORMULARY MEDICATION PO SCH ×22 (09:00)
[2016-08-05] MEDS ORDERED: MIRAPEX PO SCH (09:00)
--- NOTE | 2016-08-05 11:08 | CM.DICTOOL ---
ADMISSION: 08/02/16 13:42 DISCHARGE: 08/05/16 DATE OF SERVICE: 08/05/16 FINAL DIAGNOSIS PNEUMONIA COPD CAD S/P CABG DSYLIPIDEMIA ANEMIA GERD HIATAL HERNIA S/P HERNIORRHAPY OSTEOARTHRITIS FORMER HEAVY SMOKER, (NONE SINCE ) LAST VITALS Temp Pulse Resp BP Pulse Ox 97.8 F 71 16 122/62 94 L 08/05/16 05:19 08/05/16 05:19 08/05/16 05:19 08/05/16 05:19 08/05/16 05:45 ACTIVE MEDICATIONS Diclofenac Sodium (Voltaren 1% Gel) 2 GM TP QID Doxazosin Mesylate 2 mg PO DAILY (DOSE CHANGE) Furosemide (Lasix) 20 mg PO QOD, MO, , WED, SAT ZOË (DOSE CHANGE) Lisinopril (Zestril) 2.5 mg PO DAILY ZOË (DOSE CHANGE) Last Admin: 08/04/16 09:06 Dose: 2.5 mg Pantoprazole Sodium (Protonix) 40 mg PO DAILY Pramipexole Di-HCL (Mirapex) 1 mg PO TID (DOSE CHANGE) Pravastatin Sodium (Pravachol) 40 mg PO BEDTIME ZOË Last Admin: 08/04/16 20:45 Dose: 40 mg Potassium Chloride 10 meq PO EVERY OTHER DAY, MO, , WED, SAT ZOË (DOSE CHANGE) Last Admin: 08/04/16 09:07 Dose: 10 meq Sidenafil Citrate (Viagra) 100 mg PO DAILY PRN ALLERGIES No Known Allergies Allergy (Unverified 08/02/16 10:33) NEW PRESCRIPTIONS: NOTE THE DECREASE IN YOUR LISINOPRIL 10 MG TO 2.5 MG BY MOUTH DAILY NOTE THE DECREASE IN YOUR MIRAPEX (PRAMIPEXOLE DI-HCL 1.5 TID TO 1 MG PO TID NOTE THE DECREASE IN YOUR DOXAZOSIN MESYLATE 4 MG TO ONE-HALF TAB=2 MG DAILY NOTE THE DECREASE IN YOUR POTASSIUM 10 MEQ DAILY TO EVERY OTHER DAY NOTE THE DECREASE IN YOUR LASIX (FUROSEMIDE) FROM 40 MG TO 20 MG EVERY OTHER DAY NEW PRESCRIPTIONS: LISINOPRIL (ZESTRIL) 2.5 MG, TAKE ONE TABLET BY MOUTH DAILY MIRAPEX (PRAMIPEXOLE DI-HCL) 1 MG, TAKE ONE TABLET BY MOUTH THREE TIMES DAILY KEFLEX 500 MG, TAKE ONE CAPSULE BY MOUTH EVERY 12 HOURS FOR 7 DAYS SMOKING: FORMER HEAVY SMOKER NONE SINCE LATE DISEASE SPECIFIC EDUCATION: PNEUMONIA COPD HOME MEDICATIONS AND CHANGES NEW PRESCRIPTIONS FOLLOW UP LAB REVIEW: 08/05/16 04:42 08/05/16 04:42 08/05/16 04:42: WBC 6.53, RBC 3.01 L, Hgb 10.7 L, Hct 30.4 L, MCV 101.0 H, MCH 35.5 H, MCHC 35.2, RDW Coeff of José 13.0, Plt Count 115 L, Immature Gran % (Auto ) 0.6, Neut % (Auto) 86.4, Lymph % (Auto) 7.5 L, [place] % (Auto) 5.5, Eos % (Auto ) 0.0, Baso % (Auto) 0.0, Immature Gran # (Auto) 0.0, Neut # 5.6, Lymph # 0.5 L , [place] # 0.4, Eos # 0.0, Baso # 0.0, Sodium 139, Potassium 4.4, Chloride 113 H, Carbon Dioxide 20 L, Anion Gap 10.4, BUN 17, Creatinine 0.93, Estimated GFR ( MDRD) 79.00, BUN/Creatinine Ratio 18.27, Glucose 143 H, Calcium 8.6, Total Bilirubin 0.34, AST 27, ALT 19, Alkaline Phosphatase 67, Total Protein 6.1, Albumin 2.8 L, Globulin 3.3, Albumin/Globulin Ratio 0.85 08/04/16 08:21: Puncture Site Rbrach, O2 Saturation 92.0 L, ABG pH 7.386, ABG pCO2 34.1 L, ABG pO2 64.0 L, ABG HCO3 20.5 L, ABG Total CO2 21 L, ABG Base Excess -5 L, FiO2 % 21.0 PLAN: DISCHARGE HOME TODAY RETURN TO SEE DR. CROSS IN 5-7 DAYS. PLEASE PHONE THE OFFICE TO SCHEDULE YOUR APPOINTMENT [phone] [facility] WILL DELIVER YOUR HOME OXYGEN FOR USE. PORTABLE WILL BE DELIVERED PRIOR TO YOUR DISCHARGE [place], [place] PHONE # [phone] RESUME YOUR HOME MEDICATIONS PER LIST PROVIDED BY THE NURSING STAFF NOTE THE DECREASE IN YOUR LISINOPRIL 10 MG TO 2.5 MG BY MOUTH DAILY NOTE THE DECREASE IN YOUR MIRAPEX (PRAMIPEXOLE DI-HCL 1.5 TID TO 1 MG PO TID NOTE THE DECREASE IN YOUR DOXAZOSIN MESYLATE 4 MG TO ONE-HALF TAB=2 MG DAILY NOTE THE DECREASE IN YOUR POTASSIUM 10 MEQ DAILY TO EVERY OTHER DAY NOTE THE DECREASE IN YOUR LASIX (FUROSEMIDE) FROM 40 MG TO 20 MG EVERY OTHER DAY NEW PRESCRIPTIONS: LISINOPRIL (ZESTRIL) 2.5 MG, TAKE ONE TABLET BY MOUTH DAILY MIRAPEX (PRAMIPEXOLE DI-HCL) 1 MG, TAKE ONE TABLET BY MOUTH THREE TIMES DAILY KEFLEX 500 MG, TAKE ONE CAPSULE BY MOUTH EVERY 12 HOURS FOR 7 DAYS ACTIVITY: GET PLENTY OF REST AT HOME. GRADUALLY INCREASE YOUR ACTIVITY ACCORDING TO YOUR TOLERATION DIET: HEALTHY HEART SUMMARY: THE PATIENT IS ALERT AND ORIENTED X3. HE CURRENTLY RESIDES AT HOME WITH HIS SPOUSE. HE IS INDEPENDENT WITH ALL ADL'S AND CONTINUES TO BE ABLE TO DRIVE TO PROVIDE HIS OWN TRANSPORTATION. HE DENIES HAVING ANY DME, HOME HEALTH OR HOMEMAKING SERVICES. AT DISCHARGE HE DESIRES TO RETURN TO HIS HOME. HIS SKIN TURGOR IS INTACT AND WITHOUT DECUBITUS ULCERS. HIS HYDRATION STATUS IS GOOD. HE IS AFEBRILE AND HAS SHOWN GOOD CLINICAL PROGRESS DURING THIS STAY. HE IS AWARE AND AGREEABLE FOR DISCHARGE HOME TODAY. HENRY CROSS M.D.
--- NOTE | 2016-08-06 10:22 | ECHO2D ---
Date of Exam: 08/04/16 Ordering Physician: LIN ACUÑA Reason for Echo: NEAR SYNCOPE, SYSTOLIC MURMUR M-Mode Normal Adult Results LV Dimensions Normal Adult Results AoV Opening excursions >1.6 >1.6 LVEDD-base- 3.5-5.8 4.7 Ao root dimensions 2.0-3.7 3.2 LVESD-base- 3.1-4.6 L. Atrium dimensions 1.9-3.8 5.5 Post. Wall thickness 0.8-1.1 1.2 IV septum (thickness) 0.7-1.2 1.3 Post. Wall excursion 0.72-1.3 NORMAL Septal motion Systolic motion R. 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 PARADOXICAL SEPTAL WALL MOTION LEFT VENTRICULAR EJECTION FRACTION 48% 2. ENLARGED LEFT ATRIAL AND RIGHT VENTRICLE CAVITIES 3. CALCIFIC AORTIC VALVES--NO STENOSIS EVIDENCE OF PULMONARY HYPERTENSION MTDD
--- NOTE | 2016-08-06 15:50 | DS ---
DATE OF SERVICE: 08/05/16 FINAL DIAGNOSIS: 1. Pneumonia 2. Acute on chronic heart failure 3. COPD 4. Coronary artery disease status post bypass surgery 5. Dyslipidemia 6. Anemia 7. GERD 8. Hiatal Hernia, status post herniorrhaphy 9. Former heavy smoker 10.Osteoarthritis LAST VITALS: Blood pressure 122/62, respiratory 16, heart rate 71, temperature 97.8 and pulse 94%. DISCHARGE INSTRUCTIONS: Discharge the patient home today. Return to see Dr. Saldaña in 5-7 days. [facility] will deliver home oxygen for use. Resume home medications as per list provided by the nursing staff. MEDICATIONS AT DISCHARGE: Voltaren Doxazosin Lasix Zestril Protonix Mirapex Pravachol Potassium Chloride Sildenafil Citrate NEW PRESCRIPTIONS: Lisinopril 2.5 Mirapex 1mg three times a day Keflex 500mg twice a day for seven days Doxazosin half tablet Lasix 20mg PO every other day Zestril 2.5mg PO daily Protonix 40mg PO daily Pravastatin 40mg PO daily Potassium 20meq every other day DIET INSTRUCTIONS: Healthy heart ACTIVITY: Get plenty of rest at home. Gradually increase activity according to toleration SMOKING: N/A DISEASE SPECIFIC EDUCATION: Pneumonia and need of pneumonia vaccination Congestive heart failure Fluid management Blood pressure, hypertension risk of dizziness and falls been discussed HOSPITAL COURSE: Monty Caldera who is a 80 year old male with a history of coronary artery disease status post bypass surgery came to the emergency room with the cough and congestion, shortness of breath. Dr. Diaz saw the patient in the emergency room. CT chest showed the right lower lobe ground glass and consistent with the patchy nodularity ground glass questionable pneumonia. On the same day ABG showed the pH 7.37, pCO2 40.7 and pO2 49. BNP 117 and serology was negative. At that time the patient was admitted to the hospital and started on the IV fluids. His blood pressure was very low in the emergency room. On further questioning it was apparent that the patient has been taking extra water pills for couple of days for leg edema. The main reason he came to the emergency room was dizziness but he was also having the cough and congestion and the feeling bad. CT head was negative for the stroke. CT chest with the P protocol did not show any embolism. The patient is started on the fluid challenges, Rocephin 1 gram daily, Mirapex and Dexamethasone was given. Dr. Cha did the echocardiogram in review of his history of coronary artery disease and hypotension which did show LVH, ejection fraction is 48%, paradoxical septal wall motion, left ventricular ejection fraction 48% and pulmonary hypertension per CT of the chest. Gradually the patient's blood pressure was getting better and he was up and about and did not have any dizziness. His blood pressure on the day of discharge is 128/61. The patient's with him and I did explain the medication side effects and outcome and verbalized understanding. TIME SPENT: More than 45 minutes. DONN
--- NOTE | 2016-08-10 11:43 | HOLTER ---
PATIENT INFORMATION AND COMMENTS Indications: BRADYCARDIA __ Patient Medications: DUONEB, ZESTRIL, MIRAPEX, PRAVACHOL __ Pre-procedure Summary: Protocol: Standard Heart Rate Started: 08/05/16937 Minimum: 39 BPM Weight: 175 LBS Ended: 08/06/16937 Maximum: 153 BPM Height: 61" Duration: 16 HRS 46 MIN Average: 81 BPM _ INTERPRETATIONS/OBSERVATIONS: 1. BASIC RHYTHM: SINUS, RATE 40/MINUTE TO 150/MINUTE, AVERAGE 80/MINUTE 2. INFREQUENT PAC'S AND PVC'S 3. FEW SHORT RUNS OF SVT NOTED (3 TO 7 BEATS) 4. NO ST-T WAVE CHANGES FROM BASELINE 5. NO CORRELATION WITH ACTIVITY LOG MTDD
== END 2016-08-05 12:30 | disposition home or self-care (01) | DRG 194 ==
LOC: ED 10:29 → MEDSURG B 13:42
PROVIDERS: ADMIT Emergency Medicine; ATTEND Emergency Medicine
DX: J18.9 Pneumonia, unspecified organism (principal); D61.9 Aplastic anemia, unspecified; R42 Dizziness and giddiness; I51.7 Cardiomegaly; R06.02 Shortness of breath; T50.1X1A Poisoning by loop [high-ceiling] diuretics, accidental (unintentional), initial encounter; I95.9 Hypotension, unspecified; R94.39 Abnormal result of other cardiovascular function study; R50.9 Fever, unspecified; I27.2 Other secondary pulmonary hypertension; R01.1 Cardiac murmur, unspecified; I25.10 Atherosclerotic heart disease of native coronary artery without angina pectoris; I50.9 Heart failure, unspecified; J44.9 Chronic obstructive pulmonary disease, unspecified; K21.9 Gastro-esophageal reflux disease without esophagitis; K44.9 Diaphragmatic hernia without obstruction or gangrene; M15.9 Polyosteoarthritis, unspecified; E78.5 Hyperlipidemia, unspecified; N40.0 Benign prostatic hyperplasia without lower urinary tract symptoms; Z95.1 Presence of aortocoronary bypass graft; Z87.891 Personal history of nicotine dependence; Z79.899 Other long term (current) drug therapy
CPT/HCPCS: 36415; 80053; 82550; 82553; 82803; 83605; 83880; 84439; 84443; 84484; 85025; 85379; 87040; 87651; 87804; 87880; 93005; 93010; 93224; 94640; 94761; 96361; 96365; 99284

== ENCOUNTER 2016-08-13 10:36 | Outpatient (CLI) | payer OTHER ==
[2016-08-13 11:28] LABS: BASOPHILS % (AUTO) 0.5 % (0.0-3.0); EOSINOPHILS # (AUTO) 0.1 K/ul (0.0-0.7); HEMATOCRIT 33.9 % (42.0-52.0); HEMOGLOBIN 11.8 g/dl (14.0-18.0); IMMATURE GRANULOCYTE % (AUTO) 0.3 % (0.0-5.0); LYMPHOCYTES # (AUTO) 0.8 K/uL (0.60-3.4); LYMPHOCYTES % (AUTO) 22.4 (10.0-50.0); MEAN CORPUSCULAR HEMOGLOBIN 35.1 pg (27.0-31.0); MEAN CORPUSCULAR HGB CONC 34.8 (31.8-35.4); MEAN CORPUSCULAR VOLUME 100.9 fl (80.0-94.0); MONOCYTES # (AUTO) 0.3 K/uL (0.4-2.0); MONOCYTES % (AUTO) 8.6 (0-10); NEUTROPHILS # (AUTO) 2.4 K/ul (2.0-6.9); NEUTROPHILS % (AUTO) 65.2; PLATELET COUNT 237 10^3/uL (140-440); RED BLOOD COUNT 3.36 10^6/ul (4.70-6.10); WHITE BLOOD COUNT 3.71 K/ul (4.2-10.2)
[2016-08-13 12:02] LABS: ANISOCYTOSIS NOT PRESENT (NOT PRESENT)
[2016-08-13 12:15] LABS: ALBUMIN 3.4 g/dL (3.4-5.0); ALBUMIN/GLOBULIN RATIO 0.97; ANION GAP 12.3; BILIRUBIN,TOTAL 0.59 mg/dL (0.00-1.20); BUN/CREATININE RATIO 17.04; CALCIUM 9.6 mg/dL (8.2-10.2); CREATININE 0.88 mg/dL (0.60-1.10); FERRITIN 222.71 ng/mL (21.81-274.66); FOLATE 17.8 ng/mL (3.1-20.5); POTASSIUM 4.3 mmol/L (3.5-5.1); TOTAL PROTEIN 6.9 g/dL (5.8-8.1)
[2016-08-17 16:38] LABS: IMMUNOGLOBULIN M, QN, SERUM 85 mg/dL (15-143)
== END 2016-08-13 10:37 | disposition home or self-care (01) ==
LOC: LAB 10:36
PROVIDERS: ATTEND Internal Medicine Hematology & Oncology
DX: D53.9 Nutritional anemia, unspecified (principal)
CPT/HCPCS: 36415; 80053; 82607; 82728; 82746; 83540; 83550; 84165; 85008; 85025; 86320

== ENCOUNTER 2016-10-12 09:57 | Outpatient (CLI) | END 2016-10-12 09:58 | disposition home or self-care (01) | LOC: AMBL 09:57 | PROVIDERS: ATTEND Emergency Medicine | DX: M25.562 Pain in left knee (principal); V59.49XA Driver of pick-up truck or van injured in collision with other motor vehicles in traffic accident, initial encounter ==

== ENCOUNTER 2016-11-20 08:23 | Outpatient (CLI) ==
[2016-11-20 08:44] LABS: BASOPHILS % (AUTO) 0.2 % (0.0-3.0); EOSINOPHILS # (AUTO) 0.1 K/ul (0.0-0.7); EOSINOPHILS % (AUTO) 2.7 % (0.0-7.0); HEMATOCRIT 35.9 % (42.0-52.0); HEMOGLOBIN 12.6 g/dl (14.0-18.0); IMMATURE GRANULOCYTE % (AUTO) 0.2 % (0.0-5.0); LYMPHOCYTES # (AUTO) 0.8 K/uL (0.60-3.4); LYMPHOCYTES % (AUTO) 20.3 (10.0-50.0); MEAN CORPUSCULAR HEMOGLOBIN 35.5 pg (27.0-31.0); MEAN CORPUSCULAR HGB CONC 35.1 (31.8-35.4); MEAN CORPUSCULAR VOLUME 101.1 fl (80.0-94.0); MONOCYTES # (AUTO) 0.3 K/uL (0.4-2.0); MONOCYTES % (AUTO) 7.4 (0-10); NEUTROPHILS # (AUTO) 2.8 K/ul (2.0-6.9); NEUTROPHILS % (AUTO) 69.2; PLATELET COUNT 147 10^3/uL (140-440); RED BLOOD COUNT 3.55 10^6/ul (4.70-6.10); WHITE BLOOD COUNT 4.04 K/ul (4.2-10.2)
== END 2016-11-20 08:24 | disposition home or self-care (01) ==
LOC: LAB 08:23
PROVIDERS: ATTEND Internal Medicine Hematology & Oncology
DX: D53.9 Nutritional anemia, unspecified (principal)
CPT/HCPCS: 36415; 85025

== ENCOUNTER 2017-01-07 09:59 | Outpatient (CLI) ==
--- NOTE | 2017-01-07 11:02 | DI ---
Exam: Two x-rays of the right hip. Shows: CT abdomen pelvis performed on 08/02/2016. Reason for exam: Pain. FINDINGS: No acute fracture or dislocation. The femoral head articulates with the acetabulum. Dege nerative disease is seen with joint space narrowing and acetabular sclerosis. The pelvic ring appear s intact. Surgical changes are seen within the pelvis. Impression: No acute fracture or dislocation in the right hip with mild to moderate degenerative dis ease
--- NOTE | 2017-01-07 11:05 | DI ---
Exam: Five x-rays of the lumbar spine. Comparison: CT lumbar spine performed 11/22/2012, x-ray lumbar spine performed 12/27/2014. Reason for exam: Pain. FINDINGS: Multilevel degenerative disease is seen within the lumbar spine with intervertebral body d isc space height loss, osteophyte formation, similar appearing listhesis, and facet hypertrophy. The re is a new compression deformity in the L1 vertebral body with mild anterior wedging at approximatel y 10-15% vertebral body height loss. There is mild rotatory levoscoliosis of the lumbar spine. Impression: 1. Mild age determinate compression deformity of the L1 vertebral body with approximately 10-15% vert ebral body height loss. 2. Multilevel degenerative disease with intervertebral body disc space height loss, listhesis, facet hypertrophy, and osteophyte formation. Imaging findings appear quite similar to the previous study. If clinical concern exists for radiculopathy or myelopathy, MRI may be performed. Report faxed at 1100 hours on 01/07/2017.
--- NOTE | 2017-01-07 11:09 | DI ---
Exam: Four x-rays of the right knee. Comparison: 10/25/2012. Reason for exam: Pain. FINDINGS: No acute fracture or dislocation. There is moderate tricompartmental arthrosis with joint space narrowing and osteophyte formation. Surgical clips are seen within the soft tissues. There i s no large joint effusion. Impression: 1. No acute fracture or dislocation in the right knee. 2. Moderate degenerative disease with osteophyte formation, joint space narrowing, and tricompartmen priyanka arthrosis
== END 2017-01-07 10:00 | disposition home or self-care (01) ==
LOC: RAD 09:59
PROVIDERS: ATTEND Internal Medicine
DX: M25.551 Pain in right hip (principal); M25.561 Pain in right knee

== ENCOUNTER 2017-02-11 08:33 | Outpatient (CLI) ==
[2017-02-11 08:57] LABS: BASOPHILS % (AUTO) 0.3 % (0.0-3.0); EOSINOPHILS # (AUTO) 0.1 K/ul (0.0-0.7); EOSINOPHILS % (AUTO) 2.9 % (0.0-7.0); HEMATOCRIT 35.7 % (42.0-52.0); HEMOGLOBIN 12.5 g/dl (14.0-18.0); LYMPHOCYTES # (AUTO) 0.8 K/uL (0.60-3.4); MEAN CORPUSCULAR HEMOGLOBIN 35.2 pg (27.0-31.0); MEAN CORPUSCULAR VOLUME 100.6 fl (80.0-94.0); MONOCYTES # (AUTO) 0.3 K/uL (0.4-2.0); MONOCYTES % (AUTO) 7.3 (0-10); NEUTROPHILS # (AUTO) 2.6 K/ul (2.0-6.9); NEUTROPHILS % (AUTO) 67.5; PLATELET COUNT 154 10^3/uL (140-440); RED BLOOD COUNT 3.55 10^6/ul (4.70-6.10); WHITE BLOOD COUNT 3.81 K/ul (4.2-10.2)
[2017-02-11 09:57] LABS: ALBUMIN 3.5 g/dL (3.4-5.0); ALBUMIN/GLOBULIN RATIO 1.13; ANION GAP 12.3; BILIRUBIN,TOTAL 0.54 mg/dL (0.00-1.20); BUN/CREATININE RATIO 17.59; CREATININE 1.08 mg/dL (0.60-1.10); FERRITIN 128.47 ng/mL (21.81-274.66); FOLATE 19.4 ng/mL (3.1-20.5); POTASSIUM 4.3 mmol/L (3.5-5.1); TOTAL PROTEIN 6.6 g/dL (5.8-8.1)
[2017-02-12 15:17] LABS: A/G RATIO 1.3 (0.7-1.7); ALPHA-1 GLOBULIN 0.3 g/dL (0.0-0.4); ALPHA-2 GLOBULIN 0.7 g/dL (0.4-1.0); BETA GLOBULIN 0.9 g/dL (0.7-1.3); GAMMA GLOBULIN 0.8 g/dL (0.4-1.8); TOTAL GLOBULINS 2.6 g/dL (2.2-3.9)
== END 2017-02-11 08:34 | disposition home or self-care (01) ==
LOC: LAB 08:33
PROVIDERS: ATTEND Internal Medicine Hematology & Oncology
DX: D53.9 Nutritional anemia, unspecified (principal); D72.819 Decreased white blood cell count, unspecified
CPT/HCPCS: 36415; 80053; 82607; 82728; 82746; 83540; 83550; 84165; 85025

== ENCOUNTER 2017-03-02 15:00 | Outpatient (RCR) ==
--- NOTE | 2017-03-01 10:08 | RS.OPPTEV2 ---
Date of Note: 02/26/17 Visit #: 1 Date of Evaluation: 02/26/17 Payer Source: MEDICARE Surgery Performed?: No Treatment Diagnosis: Low back pain, OA History of Condition/Mechanism of Injury:: pt reports he has had a long history of LBP, new onset on L ankle and R knee pain due to OA. Prior Level of Function.....Patient was independent with: ADL's, Self Care, Ambulation/Mobility, Community Integration/Access Functional Limitations: Pushing, Pulling, Lifting, Ambulation, Community Access/ Integration Current Subjective/complaints:: pt states his pain has been increasing lately. States he saw Dr. Rivera for his back and asked him about his knee and he recommended he see one of the other ortho MD's for the knee. *Precautions: fall precautions Medical History Medical History: Hypertension, Arthritis Medical History Comments:: GERD Surgical History: CABG Surgical History Comments:: cardiac stents, hernia repair Smoking Status: Smoker, status unknown Diagnostic Testing/Imaging:: CT of lumbar spine showing mild age detereminate compression deformity L1, multilevel degenerative disease with intervertebral body disc space loss and facet hypertrophy and osteophyte formation. R Knee xray no acute fracture, moderate degenerative disease with osteophyte formation, Hx Home Medications: furosemide, potassium chloride ER, pravastatin, lisinopril , pantoprazole, doxazosisn mesly, pramipexole dihydro, tramadol, diclofenac sodium, prednisone Patient's Goals: to decrease pain Pain Assessment - Pain Description Pain Location: L ankle, R knee, and back Pain Description: Aching Current Pain Intensity: 7-8/10 L ankle, 3/10 back, 3/10 R knee Functional Outcome Measure Oswestry LBP: 33 - G Codes & Severity Modifier G Codes & Modifier: mobility current CK. mobility goal CI Source of G Code score: oswestry and functional eval. Observation - Observation Posture: Forward Head, Rounded Shoulders, Scoliosis Gait - Gait Pattern General Gait Pattern Observation: Antalgic Gait, Crouched Gait, Decrease Stride Lngth (R), Decrease Stride Lngth (L) Gait Comments: TUG 32 secs General Range of Motion: WFL's with pain with R knee and L ankle Muscle Strength: RLE hip flex 3/5, knee flex/ext 4/5, ankle DF/PF 4/5. LLE hip flex 4+/5, knee flex/ext 4+/5, ankle Df/PF 4-/5 - ROM Lumbar Flexion: Hand reach to patellae Sidebending to Left: Reach to Lateral Joint Line Sidebending to Right: Reach to Lateral Joint Line Lumbar Spine ROM Limitations: Soft Tissue Tightness, Pain Comments: EXT WFL's, pain worse with ext than flex. Palpation Palpation Findings: Tenderness, Muscle Guarding Comments:: L lat lumbar area with muscle guarding Sensation - Sensation Right Upper Extremity: Intact/Normal Left Upper Extremity: Intact/Normal Right Lower Extremity: Intact/Normal Left Lower Extremity: Intact/Normal Balance - Sitting Balance Static Sitting Balance: Normal Dynamic Sitting Balance: Good - Standing Balance Static Standing Balance: Good Dynamic Standing Balance: Fair - Comments Balance Assessment Comments: Tinetti score: , consistent with high risk of falls. - Treatment Modality: Electrical Stim Unattended Parameters/Method Applied: 12ma Treatment Area: L lat lumbar - Heat/Cryotherapy Treatment: Hot Pack, Cryotherapy (L ankle) Comments:: Lumbar Interventions - Exercise/Activities/Manual Therapy Exercises/Activities: instructed on HEP Manual Therapy: n/a HOME EXERCISE PROGRAM: pt given written HEP including: ankle DF/PF, alphabet, resisted hip flex, hamstring stretch, knee to chest, ball squeezes - Charges Total Direct Minutes: 42 Total Treatment Time: 62 Procedures billed for this date of service:: eval and estim, hot pack Assessment Assessment: pt presents with pain in lumbar spine, as well as R knee and L ankle. Pain in lumbar spine related to compression fx of L1, decreased strength and difficulty with gait. Patient Education: Education of diagnosis, Home Exercise Program, Home Safety, Education of Plan of Care Rehab Potential: Good Short Term Goals Goal #1: Low back pain < 4/10 with activity Goal to be met by: 03/19/17 Goal #2: pt amb in the dept with/without AD with no LOB with improved posture Goal to be met by: 03/19/17 Goal #3: pt with decreased hamstring tightness to be equal BLE Goal to be met by: 03/19/17 Field Examiner Goals Goal #1: pt demonstrate improved strength BLE 4 to 4+/5 and independent with HEP Goal to be met by: 04/09/17 Goal #2: pt with dyn stand balance as noted by tinetti score Goal to be met by: 04/09/17 Goal #3: Low back pain <2/10 with activity Goal to be met by: 04/09/17 Goal #4: pt amb community distances with/without AD with no LOB/no increased pain Goal to be met by: 04/09/17 Plan - Treatment to be Provided Procedures: Therapeutic Exercises, Therapeutic Activity, Gait Training, Neuromuscular Rehab, Manual Therapy, Patient Education Modalities: Electrical Stimulation, Ultrasound/Phonophoresis, Cryotherapy, Hot Packs - Treatment Plan Frequency: 2 X week Duration: 6 weeks ORDER # VISITS AND/OR THROUGH DATE: 04/09/17 - Treatment Code (1) Low back pain Code(s): M54.5 - LOW BACK PAIN Qualifiers: Chronicity: chronic Back pain laterality: unspecified Sciatica presence: without sciatica Qualified Code(s): M54.5 - Low back pain; G89.29 - Other chronic pain; G89.29 - Other chronic pain (2) Osteoarthritis Code(s): M19.90 - UNSPECIFIED OSTEOARTHRITIS, UNSPECIFIED SITE Qualifiers: Osteoarthritis location: multiple joints Osteoarthritis type: primary Qualified Code(s): M15.0 - Primary generalized (osteo)arthritis
--- NOTE | 2017-03-02 16:17 | RS.OPPTDN ---
Subjective Date of Note: 03/02/17 Visit #: 2 Date of Evaluation: 02/26/17 Payer Source: MEDICARE Treatment Diagnosis: Low back pain, OA Current Subjective/complaints:: Patient reports back pain is much better since first treatment. States he is working on HEP. Patient also states he feels a lot of his balance problems are related to medication changes, and he hope to have this corrected when he is seen by PCP latera this week. *Precautions: fall precautions Pain Assessment - Pain Description Pain Location: L ankle, R knee, and back Pain Description: Aching Current Pain Intensity: back pain mild to mod Other Comments regarding Pain:: Reports left ankle and right knee pain continue to be a problem. - Treatment Modality: Electrical Stim Unattended Parameters/Method Applied: [id number] HVGC to 150p.v. with 4 large pads, cross current, to the bilateral lumbar paraspinals with HP prior to EX. Patient Position: Supine - Heat/Cryotherapy Treatment: Hot Pack ([id number] wtih Estim ) Interventions - Exercise/Activities/Manual Therapy Exercises/Activities: [id number] Assisted stretching of the bilateral hamstrings and SKTC. Isometric hip add with ball. Short range LTR with ball between knees. Total minutes of Exercise: 14mins Manual Therapy: n/a HOME EXERCISE PROGRAM: pt given written HEP including: ankle DF/PF, alphabet, resisted hip flex, hamstring stretch, knee to chest, ball squeezes - Objective Findings Observations,measurements,etc.: Demos tight hamstrings bilaterally. - Charges Total Direct Minutes: 14mins Total Treatment Time: 40mins Procedures billed for this date of service:: HP, Estim unattended, EX Assessment: Patient reporting improvement with treatment and HEP. Will need to increase hamstring flexibility and progress trunk stability exercise to improve body mechanics and continue to reduce pain. Patient Education: Body/Joint mechanics, Home Exercise Program Comments: Discussed old compression fx and need to be cautious with sitting to avoid re-injury. Patient demonstrates compliance with HEP?: Yes Short Term Goals Goal #1: Low back pain < 4/10 with activity Goal to be met by: 03/19/17 Progress towards Goal:: Progressing Goal #2: pt amb in the dept with/without AD with no LOB with improved posture Goal to be met by: 03/19/17 Progress towards Goal:: Progressing Goal #3: pt with decreased hamstring tightness to be equal BLE Goal to be met by: 03/19/17 Shelter Goals Goal #1: pt demonstrate improved strength BLE 4 to 4+/5 and independent with HEP Goal to be met by: 04/09/17 Goal #2: pt with dyn stand balance as noted by tinetti score Goal to be met by: 04/09/17 Goal #3: Low back pain <2/10 with activity Goal to be met by: 04/09/17 Progress towards goal: Progressing Goal #4: pt amb community distances with/without AD with no LOB/no increased pain Goal to be met by: 04/09/17 Plan PLAN OF CARE EXPIRES ON:: 04/09/17 ORDER # VISITS AND/OR THROUGH DATE: 04/09/17 PLAN: Continue modalities and progress exercise to reduce pain and increase functional activity level.
--- NOTE | 2017-03-12 16:12 | RS.OPPTDC ---
Date of Discharge: 03/04/17 Date of Evaluation: 02/26/17 Number of Visits: 2 Treatment Diagnosis: Low back pain, OA Current Level of Function: pt much improved with no LBP. pt is independent with HEP Current Complaints/Gains: pt requests to be dc due to progress with no LBP. pt states he can perform all daily activities without difficulty or increased pain. Functional Outcome Measure Oswestry LBP: 9 (18%) - G Codes & Severity Modifier G Codes & Modifier: mobility dc CI. mobility goal CI Source of G Code score: oswestry LBP scale General Range of Motion: WFL's Muscle Strength: WFL's Interventions - Exercise/Activities/Manual Therapy Exercises/Activities: [id number] Assisted stretching of the bilateral hamstrings and SKTC. Isometric hip add with ball. Short range LTR with ball between knees. Manual Therapy: n/a HOME EXERCISE PROGRAM: pt given written HEP including: ankle DF/PF, alphabet, resisted hip flex, hamstring stretch, knee to chest, ball squeezes - Charges Total Direct Minutes: n/a Total Treatment Time: n/a Procedures billed for this date of service:: n/a Assessment Assessment: pt has met STG 1, 2, and LTG 3. pt requests to be dc. Patient Education: Education of diagnosis, Home Exercise Program, Activity Modification, Education of Plan of Care Rehab Potential: Good Short Term Goals Goal #1: Low back pain < 4/10 with activity Goal to be met by: 03/19/17 Progress towards Goal:: Progressing Goal #2: pt amb in the dept with/without AD with no LOB with improved posture Goal to be met by: 03/19/17 Progress towards Goal:: Progressing Goal #3: pt with decreased hamstring tightness to be equal BLE Goal to be met by: 03/19/17 Progress towards Goal:: Progressing Fdc Goals Goal #1: pt demonstrate improved strength BLE 4 to 4+/5 and independent with HEP Goal to be met by: 04/09/17 Progress towards goal: Not Met Goal #2: pt with dyn stand balance as noted by tinetti score 22/28 Goal to be met by: 04/09/17 Progress towards goal: Not Met Goal #3: Low back pain <2/10 with activity Goal to be met by: 04/09/17 Progress towards goal: Not Met Goal #4: pt amb community distances with/without AD with no LOB/no increased pain Goal to be met by: 04/09/17 Progress towards goal: Not Met Plan Comments: pt request due to no LBP
== END 2017-03-25 ==
PROVIDERS: ATTEND Orthopaedic Surgery Orthopaedic Surgery of the Spine
DX: M54.5 Low back pain (principal)

== ENCOUNTER 2017-06-18 10:26 | Inpatient (IN) ==
[2017-06-18] MEDS: DEXTROSE 5%-1/2NS IV SOLUTION 1,000 ML IV SCH ×2 (11:00→23:16)
[2017-06-18] MEDS ORDERED: MORPHINE 4 MG/ML VIAL IVP PRN (11:06)
[2017-06-18] MEDS ORDERED: TYLENOL PO PRN (11:06)
[2017-06-18] MEDS ORDERED: ZITHROMAX PO STA (11:06)
[2017-06-18] MEDS ORDERED: VISTARIL INJ IM PRN (11:06)
[2017-06-18] MEDS ORDERED: ATROPINE SULFATE PFS IVP PRN (11:06)
[2017-06-18] MEDS ORDERED: NITROSTAT SL PRN (11:06)
[2017-06-18] MEDS ORDERED: LOMOTIL PO STA (11:10)
[2017-06-18] MEDS ORDERED: TUSSIONEX PO STA (11:10)
[2017-06-18] MEDS ORDERED: ROCEPHIN 1 GM in SODIUM CHLORIDE 50 ML IV STA (11:10)
[2017-06-18] MEDS ORDERED: LOMOTIL PO PRN (11:10)
[2017-06-18 11:46] VITALS: BMI 24.6
[2017-06-18] MEDS ORDERED: XOPENEX 1.25 MG NEB ONE (12:06)
[2017-06-18] MEDS: XOPENEX 1.25 MG NEB SCH ×3 (12:12→22:53)
[2017-06-18] MEDS: HYTRIN PO SCH (12:37)
[2017-06-18] MEDS: TAMIFLU PO SCH ×2 (12:37→20:43)
[2017-06-18] MEDS: SOLU-CORTEF 250 MG IVP SCH ×2 (12:38→20:43)
--- NOTE | 2017-06-18 14:32 | DI ---
Exam: Chest one-view. HISTORY: Cough, shortness of breath, leg swelling. Comparison: 03/20/2015. Findings: Rotated portable image of the chest demonstrates moderately expanded lungs with minimal op acity partially obscuring the left diaphragm. The pulmonary vasculature does not appear edematous. The cardiac silhouette is at the upper limit of normal size. Intact sternal wires are noted. The sk eletal structures appear diffusely osteopenic. Impressions: Minimal left base atelectasis or pneumonia. Prior sternotomy.
[2017-06-18] MEDS ORDERED: ULTRAM PO PRN (15:09)
[2017-06-18] MEDS: MIRAPEX PO SCH (20:42)
[2017-06-18] MEDS: TUSSIONEX PO SCH (20:43)
[2017-06-19] MEDS: XOPENEX 1.25 MG NEB SCH ×4 (05:05→23:50)
[2017-06-19] MEDS: SOLU-CORTEF 250 MG IVP SCH ×3 (05:19→21:18)
[2017-06-19] MEDS: PROTONIX PO SCH (05:35)
[2017-06-19] MEDS: LASIX TAB PO SCH (05:35)
[2017-06-19] MEDS: MIRAPEX PO SCH ×3 (08:37→21:21)
[2017-06-19] MEDS: ZITHROMAX PO SCH (08:38)
[2017-06-19] MEDS: TAMIFLU PO SCH ×2 (08:38→21:17)
[2017-06-19] MEDS: ROCEPHIN 1 GM in SODIUM CHLORIDE 50 ML IV SCH (08:39)
[2017-06-19] MEDS: ASPIRIN EC PO SCH (08:39)
[2017-06-19] MEDS: MICRO-K CAP PO SCH (08:39)
[2017-06-19] MEDS: HYTRIN PO SCH (08:39)
[2017-06-19] MEDS: TUSSIONEX PO SCH ×2 (08:40→21:18)
[2017-06-19] MEDS ORDERED: DOXAZOSIN MESYLATE 8 MG PO SCH (09:00)
[2017-06-19] MEDS ORDERED: NON-FORMULARY MEDICATION (Potassium Chloride [Potassium Chloride] 10 MEQ) PO SCH (09:00)
[2017-06-19] MEDS: LOVENOX SUBCUT SCH (12:48)
[2017-06-19] MEDS: DEXTROSE 5%-1/2NS IV SOLUTION 1,000 ML IV SCH (21:22)
[2017-06-20] MEDS: XOPENEX 1.25 MG NEB SCH ×4 (05:09→22:35)
[2017-06-20] MEDS: SOLU-CORTEF 250 MG IVP SCH ×3 (05:40→21:55)
[2017-06-20] MEDS: PROTONIX PO SCH (05:40)
[2017-06-20] MEDS: LASIX TAB PO SCH (05:40)
[2017-06-20] MEDS: MIRAPEX PO SCH ×3 (09:15→21:54)
[2017-06-20] MEDS: ZITHROMAX PO SCH (09:16)
[2017-06-20] MEDS: ASPIRIN EC PO SCH (09:17)
[2017-06-20] MEDS: MICRO-K CAP PO SCH (09:17)
[2017-06-20] MEDS: HYTRIN PO SCH (09:17)
[2017-06-20] MEDS: TUSSIONEX PO SCH ×2 (09:18→22:03)
[2017-06-20] MEDS: ROCEPHIN 1 GM in SODIUM CHLORIDE 50 ML IV SCH (09:18)
[2017-06-20] MEDS: TAMIFLU PO SCH ×2 (09:18→21:54)
[2017-06-20] MEDS: LOVENOX SUBCUT SCH (09:19)
[2017-06-21] MEDS: XOPENEX 1.25 MG NEB SCH ×2 (04:55→11:10)
[2017-06-21] MEDS: PROTONIX PO SCH (06:07)
[2017-06-21] MEDS: SOLU-CORTEF 250 MG IVP SCH (06:07)
[2017-06-21] MEDS: LASIX TAB PO SCH (06:07)
[2017-06-21] MEDS ORDERED: COLACE PO ONE (09:00)
--- NOTE | 2017-06-21 09:08 | PCM.PROG ---
Attending Provider: ATTENDING PROVIDER: Dr. LIN ACUÑA This patient is seen with Natalie Churchill, Nurse Practitioner. DATE OF SERVICE: 06/21/17 SUBJECTIVE: This 81 year old WHITE/ M was hospitalized 06/18/17. The patient is lying in bed, alert. He has been up and about walking around. No fever. He is ready to go home eating well, no diarrhea. REVIEW OF SYSTEMS: CONSTITUTIONAL: Positive for fatigue. No night sweats. No malaise, lethargy. No fever or chills. HEENT: Eyes: No visual changes. No eye pain. No eye discharge. ENT: No runny nose. No epistaxis. No sinus pain. No odynophagia. No congestion. RESPIRATORY: Positive for cough. No congestion. No hemoptysis. No shortness of breath. CARDIOVASCULAR: No angina symptoms. No CHF symptoms. No atypical chest pain for CAD. No palpitations. No orthopnea.. GASTROINTESTINAL: No abdominal pain. No nausea or vomiting. No diarrhea or constipation. No hematemesis. No hematochezia. GENITOURINARY: No urgency. No frequency. No dysuria. No hematuria. No obstructive symptoms. No discharge. No pain. No significant abnormal bleeding. MUSCULOSKELETAL: No musculoskeletal pain; no joint swelling. NEUROLOGICAL: Awake, alert, oriented to time, place and person. No headache. No neck pain. No syncope. No seizures. No dizziness. PSYCHIATRIC: Not anxious. No depression. No suicidal thoughts. No homicidal thoughts. SKIN: No rash. No lesions. No wounds. ENDOCRINE: No unexplained weight loss. No weight gain. HEMATOLOGIC/LYMPHATIC: No anemia. No purpura. No petechiae. No prolonged or excessive bleeding. No palpable lymph nodes. PHYSICAL EXAMINATION: GENERAL: The patient is awake, alert and oriented, lying in bed in no distress. VITAL SIGNS: Temperature 98.2 F, Pulse 63, Respiratory Rate 12, BP 116/52, Pulse Ox 92% HEENT: Head normocephalic, atraumatic. Eyes: Extraocular muscles are intact. Pupils are equal, round and reactive to light and accommodation. Ears: No lesions. Nose appeared normal. Throat: No exudate or erythema. NECK: Supple. No JVD, no carotid bruit. No lymphadenopathy or thyromegaly. LUNGS: Diminished breath sounds bilaterally. Clear to auscultation. Percussion note normal. Chest symmetrical. HEART: S1, S2, no S3. No murmurs. No cyanosis or clubbing. No ascites. Pulses: Dorsalis pedis and posterior tibial pulses +1 to +2 both sides. ABDOMEN: Soft. Non-tender. Bowel sounds active. No CVA tenderness. No mass felt. EXTREMITIES: No edema. Full range of motion of all extremities, equal. NEUROLOGIC: No focal deficit. Cranial nerves II through XII are grossly intact. No headache, no double vision or headache. SKIN: Not dry. Intact. Turgor-normal. LYMPHATIC: No palpable lymph nodes/no lymphedema. MUSCULOSKELETAL: Normal joints with no swelling. Muscle tone is normal. LAB REVIEW: 06/21/17 05:05 06/21/17 05:05 06/21/17 05:05: Sodium 140, Potassium 3.1 L, Chloride 106, Carbon Dioxide 24, Anion Gap 13.1, BUN 27 H, Creatinine 1.22 H, Estimated GFR (MDRD) 57.00, BUN/ Creatinine Ratio 22.13, Glucose 129 H, Calcium 8.3, Total Bilirubin 0.3, AST 21 , ALT 18, Alkaline Phosphatase 57, Total Protein 5.5 L, Albumin 2.8 L, Globulin 2.7, Albumin/Globulin Ratio 1.04 06/21/17 05:05: WBC 3.43 L, RBC 3.28 L, Hgb 11.6 L, Hct 32.8 L, MCV 100.0 H, MCH 35.4 H, MCHC 35.4, RDW Coeff of José 11.9, Plt Count 89 L, Immature Gran % ( Auto) 0.3, Neut % (Auto) 78.1, Lymph % (Auto) 14.3, Hudson % (Auto) 7.3, Eos % ( Auto) 0.0, Baso % (Auto) 0.0, Immature Gran # (Auto) 0.0, Neut # 2.7, Lymph # 0.5 L, Hudson # 0.3 L, Eos # 0.0, Baso # 0.0 ASSESSMENT: 1. INFLUENZA B 2. DEHYDRATION RESOLVED 3. HYPOKALEMIA 4. DYSPHAGIA 5. ACUTE BRONCHITIS IMPROVED PLAN: 1. Discharge home 2. Potassium 40 mEq t.i.d. today 3. Potassium 20 mEq at home 4. Keflex 500 mg t.i.d. for 5 days 5. Prednisone 20 mg daily times 5 days 6. Colace 100 mg this morning 7. Swallow study today 8. Tussionex times five days Plan and coordination of the patient's care discussed in the presence of Account Manager Trainee and nurse. CONDITION: Stable SCRIBED BY: ROBERTO STEWART Electronics Mechanic scribed while in presence of service performed by Dr. Acuña/Natalie Churchill APRN on 06/21/17 ([id number])
[2017-06-21] MEDS: ASPIRIN EC PO SCH (09:39)
[2017-06-21] MEDS: HYTRIN PO SCH (09:41)
[2017-06-21] MEDS: K-DUR PO SCH ×3 (09:41→15:49)
[2017-06-21] MEDS: LOVENOX SUBCUT SCH (09:42)
[2017-06-21] MEDS: MIRAPEX PO SCH (09:43)
[2017-06-21] MEDS: ROCEPHIN 1 GM in SODIUM CHLORIDE 50 ML IV SCH (09:43)
[2017-06-21] MEDS: TAMIFLU PO SCH (09:43)
[2017-06-21] MEDS: TUSSIONEX PO SCH (09:44)
[2017-06-21 10:12] VITALS: BP 100/59; TEMP 97.9
--- NOTE | 2017-06-21 12:04 | CM.DICTOOL ---
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) LV DYSFUNCTION GERD OSTEOARTHRITIS BILATERAL CATARACTS PREVIOUS SMOKER CABG, 1988, 2000 RIGHT INGUINAL HERNIA REPAIR ANGIOPLASTY LAST VITALS Temp Pulse Resp BP Pulse Ox 97.9 F 67 20 100/59 L 94 L 06/21/17 10:00 06/21/17 10:00 06/21/17 10:00 06/21/17 10:00 06/21/17 10:00 ACTIVE HOME MEDICATIONS Furosemide (Lasix Tab) 40 mg PO QDAC [facility] Last Admin: 06/21/17 06:07 Dose: 40 mg Pantoprazole Sodium (Protonix) 40 mg PO QDAC [facility] Last Admin: 06/21/17 06:07 Dose: 40 mg Pramipexole Dihydrochloride (Mirapex) 1.5 mg PO TID [facility] Last Admin: 06/21/17 09:43 Dose: 1.5 mg Pravastatin (Pravachol) 40 mg PO Q HS Last Admin: Doxazosin Mesylate 4 mg PO DAILY Last Admin: Tramadol HCl (Ultram) 50 - 100 mg PO Q4HR PRN PRN Reason: Moderate to Severe Pain Lisinopril 2.5 mg PO DAILY Last Admin: Potassium Chloride 20 meq DAILY (DOSE INCREASE) Last Admin: ALLERGIES No Known Allergies Allergy (Unverified 08/02/16 10:33) NEW PRESCRIPTIONS: Keflex 500 mg TID for 5 days Prednisone 20 mg DAILY for 5 days Tussionex 1 teaspoon (5 ML) BID for 5 days Potassium Chloride 20 meq daily (dose increased for 10 meq daily) SMOKING: Not Applicable DISEASE SPECIFIC EDUCATION: Influenza Medications Use of steroids and risk of GI irritation Appointment LAB REVIEW: 06/21/17 05:05 06/21/17 05:05 06/21/17 05:05: Sodium 140, Potassium 3.1 L, Chloride 106, Carbon Dioxide 24, Anion Gap 13.1, BUN 27 H, Creatinine 1.22 H, Estimated GFR (MDRD) 57.00, BUN/ Creatinine Ratio 22.13, Glucose 129 H, Calcium 8.3, Total Bilirubin 0.3, AST 21 , ALT 18, Alkaline Phosphatase 57, Total Protein 5.5 L, Albumin 2.8 L, Globulin 2.7, Albumin/Globulin Ratio 1.04 06/21/17 05:05: WBC 3.43 L, RBC 3.28 L, Hgb 11.6 L, Hct 32.8 L, MCV 100.0 H, MCH 35.4 H, MCHC 35.4, RDW Coeff of José 11.9, Plt Count 89 L, Immature Gran % ( Auto) 0.3, Neut % (Auto) 78.1, Lymph % (Auto) 14.3, Marshall % (Auto) 7.3, Eos % ( Auto) 0.0, Baso % (Auto) 0.0, Immature Gran # (Auto) 0.0, Neut # 2.7, Lymph # 0.5 L, Marshall # 0.3 L, Eos # 0.0, Baso # 0.0 PLAN: Discharge home Diet: Resume as tolerated Activity: Gradually resume as tolerated. Rest when tired. Medication change: Increase Potassium to 20 meq daily An appointment is scheduled with Dr. Cha/Natalie Churchill APRN on June 28, 2017 at 11:45 am Mr. Caldera is alert and oriented x 3. He is independent with Activities of Daily Living. He is ambulatory in the room and hallway without oxygen or use of assistive device. He has been afebrile during his hospital stay. He reports an occasional productive cough of yellow sputum. He denies abdominal pain, nausea or diarrhea. Last stool reported on the . He reported constipation today and was given Colace 100 mg orally. Meal intakes are good at 75-100%. Skin is intact and free of decubitus ulcers, rashes or irritation. Reid Cha MD Natalie Churchill APRN
--- NOTE | 2017-06-21 15:22 | RS.BEDDYS ---
Subjective Number of treatment sessions: 1 Date of Evaluation: 06/21/17 Date of Onset/Injury/Change in Status: 06/18/17 Treatment Diagnosis: flu Current Level of Function: This 81 year old male was referred to speech therapy due to reports of swallowing difficulty. The patient currently has flu with weakness. No hx of swallowing difficulty reported. At the bedside, pt has limited appetite. Current Diet: regular with thin liquids. Current Subjective/complaints:: The patient reported multiple symptoms and complaints with swallow function, not related to recent episode of flu. The patient stated the symptoms have slowly progressed, however became excerbated with the flu. Swallowing medications were initially difficult and pt had been compensating with personal techniques to swallow pills whole. However, now food textures have been difficult to swallow and the patient is more cautious about food choices. He also has dentures, with poor fitting top dentures, that he attributes to some chewing difficulty. Frequent coughing with all his meals was reported by the patient and caregiver. Lung sounds are not consistent with aspiration at this time. Medical History Comments:: Not significant for pneumonia or CVA. Hx Home Medications: Refer to medications for complete and current list. Patient's Goals: To swallow safely. General Information - General Denture Type: Full- Upper & Lower (Top dentures loose, bottom dentures fit.) Patient Orientation: Person, Place, Time, Situation Ability to Follow Directions: Excellent Oral-Facial Assessment - Face Facial Symmetry: Symmetrical Facial Movement: Controlled - Dental/Labial Lip Protrusion: Weak Puff Cheeks: Reduced Strength (Air escape over two attempted trials, poor closure.) Lips Comment: moderate labial weakness and difficulty with adequate closure for pressure - Lingual Protrusion: Reduced ROM Tip Lateralization: Discoordination Repeated Tip Lateralization: Weak Tip Elevation: Weak Comments: Right side movements stronger than left side. Requried increased cues for adequate movements. Food Presentation - Solids Food Presented: Mechanical Soft Behaviors/Comments: Poor bolus coordination, weak labial seal, decreased rotary chew. Required multiple swallow attempts to clear bolus. Moderate oral stasis. Pt did comment on all behaviors with mastication and deglutition. Pt required finger sweep to clear sulci. - Liquids Liquid Presented: Thin Behaviors/Comments: Audible swallow, but immediate swallow response. delayed cough after multiple swallows. Laryngeal burping frequently post three trials. Suspected timing and coordination difficulty with liquids. - Recommendations: Dysphagia Evaluation Dietary Recommendations: Dysphagia Mechanical Soft Comments:: mechanical soft diet texture safe due to patients sensation of residue and skills demonstrated with strategies. Dysphagia Swallow Precautions/Strategies: Sitting Upright (90 deg), Double Swallow, Small Bites and Sips, Alternate Liquids/Solids Comments:: TAIL PULLER educated pt on safe swallow strategies. Strategies to use with pills in the home environment. Safe diet textures. And follow-up outpatient treatment recommended to increase safety awareness with swallow function. - Summary Dysphagia Evaluation Summary: Pt presented with oropharyngeal dysphagia at the bedside. Weak labial seal with decreased pressure is suspected cause of poor bolus clearance. Pt reported moderate residue in throat with all food texture. Residue cleared with liquid wash x2. TAIL PULLER wants pt to have Modified barium swallow study to assess current swallow function and timing/coordination fo swallow response. TAIL PULLER will look at UES function. Further Therapy Indicated?: Yes Comments: MBSS set-up and based on results, frequency and duration of outpatient ST will be determined. Rehab Potential: Good Functional Reporting G Codes: Swallowing current CJ Goal CI Severity Impairment Rationale: Mechanical soft diet texture. Plan Duration of Treatment: One Time Treatment Anticipated Discharge Destination: Home Comments: Further treatment in outpatient setting will be determined after MBSS is completed. - Treatment Code (1) Oropharyngeal dysphagia Code(s): R13.12 - DYSPHAGIA, OROPHARYNGEAL PHASE
[2017-06-22] MEDS ORDERED: PREDNISONE PO SCH (08:00)
--- NOTE | 2017-06-22 11:07 | PN ---
DATE OF SERVICE: 06/19/17 SUBJECTIVE: 81 year old white male hospitalized with influenza B positive. He was dehydrated and has acute bronchitis with pneumonitis and had syncopal episode also with hypotension. The patient says that he is feeling a lot better. REVIEW OF SYSTEMS: CONSTITUTIONAL: No night sweats. No fatigue, malaise, lethargy. No fever or chills. HEENT: Eyes: No visual changes. No eye pain. No eye discharge. ENT: No runny nose. No epistaxis. No sinus pain. No sore throat. No odynophagia. No congestion. RESPIRATORY: Mild cough, no congestion. No hemoptysis. Mild shortness of breath. CARDIOVASCULAR: No angina symptoms. No CHF symptoms. No atypical chest pain for CAD. No palpitations. No orthopnea. GASTROINTESTINAL: No abdominal pain. No nausea or vomiting. No diarrhea or constipation. No hematemesis. No hematochezia.Appetite is improving. GENITOURINARY: No urgency. No frequency. No dysuria. No hematuria. No obstructive symptoms. No discharge. No pain. No significant abnormal bleeding. MUSCULOSKELETAL: No musculoskeletal pain; no joint swelling. NEUROLOGICAL: No headache. No neck pain. No syncope. No seizures. No dizziness. PSYCHIATRIC: Not anxious. No depression. No suicidal thoughts. No homicidal thoughts. SKIN: No rash. No lesions. No wounds. ENDOCRINE: No unexplained weight loss. No weight gain. HEMATOLOGIC/LYMPHATIC: No anemia. No purpura. No petechiae. No prolonged or excessive bleeding. No palpable lymph nodes. PHYSICAL EXAMINATION: GENERAL: The patient is oriented to time, place and person. VITAL SIGNS: Temperature 97.6, pulse 60, respiratory rate 20, blood pressure 90 /51 and pulse ox 97%. HEENT: Head normocephalic, atraumatic. Eyes: Extraocular muscles are intact. Pupils are equal, round and reactive to light and accommodation. Ears: No lesions. Nose appeared normal. Throat: No exudate or erythema. NECK: Supple. No JVD, no carotid bruit. No lymphadenopathy or thyromegaly. LUNGS: Decreased breath sounds but clear to auscultation. Percussion note normal. Chest symmetrical. HEART: S1, S2, no S3. No murmurs. No cyanosis or clubbing. No ascites. Pulses: Dorsalis pedis and posterior tibial pulses +1 to +2 both sides. ABDOMEN: Soft. Nontender. Bowel sounds active. No CVA tenderness. No mass felt. EXTREMITIES: No edema. Full range of motion of all extremities, equal. NEUROLOGIC: No focal deficit. Cranial nerves II through XII are grossly intact. No headache, no double vision or headache. SKIN: Not dry. Intact. Turgor - A lot better. LYMPHATIC: No palpable lymph nodes/no lymphedema. MUSCULOSKELETAL: Normal joints with no swelling. Muscle tone is normal. LABS: Hgb 11.9, hct 33, WBC 4,400 normal differential, creatinine 1.2, BUN 23, potassium 4 ASSESSMENT: 1. Influenza B 2. Acute pneumonitis/bronchitis 3. Dehydration seems to be improving 4. Cardiovascular status is stable. PLAN: 1. Discontinue IV fluids 2. Up and about 3. Lovenox 40mg SUBCUT daily TIME SPENT: More than 30 minutes. Plan and coordination of the patient's care discussed in the presence of nurse. DONN
--- NOTE | 2017-06-22 11:15 | PN ---
DATE OF SERVICE: 06/20/17 SUBJECTIVE: 81 year old white male hospitalized with influenza positive with acute bronchitis. The patient's condition has improved. He is feeling a lot better. REVIEW OF SYSTEMS: CONSTITUTIONAL: No night sweats. No fatigue, malaise, lethargy. No fever or chills. HEENT: Eyes: No visual changes. No eye pain. No eye discharge. ENT: No runny nose. No epistaxis. No sinus pain. No sore throat. No odynophagia. No congestion. RESPIRATORY: Mild cough, no congestion. No hemoptysis. No shortness of breath. CARDIOVASCULAR: No angina symptoms. No CHF symptoms. No atypical chest pain for CAD. No palpitations. No orthopnea. GASTROINTESTINAL: No abdominal pain. No nausea or vomiting. No diarrhea or constipation. No hematemesis. No hematochezia. Appetite improving. GENITOURINARY: No urgency. No frequency. No dysuria. No hematuria. No obstructive symptoms. No discharge. No pain. No significant abnormal bleeding. MUSCULOSKELETAL: No musculoskeletal pain; no joint swelling. NEUROLOGICAL: No headache. No neck pain. No syncope. No seizures. No dizziness. PSYCHIATRIC: Not anxious. No depression. No suicidal thoughts. No homicidal thoughts. SKIN: No rash. No lesions. No wounds. ENDOCRINE: No unexplained weight loss. No weight gain. HEMATOLOGIC/LYMPHATIC: No anemia. No purpura. No petechiae. No prolonged or excessive bleeding. No palpable lymph nodes. PHYSICAL EXAMINATION: GENERAL: The patient is oriented to time, place and person. VITAL SIGNS: Temperature 96.9, pulse 74, respiratory rate 18, blood pressure 105/50 and pulse ox 93%. HEENT: Head normocephalic, atraumatic. Eyes: Extraocular muscles are intact. Pupils are equal, round and reactive to light and accommodation. Ears: No lesions. Nose appeared normal. Throat: No exudate or erythema. NECK: Supple. No JVD, no carotid bruit. No lymphadenopathy or thyromegaly. LUNGS: Decreased breath sounds but clear to auscultation. Percussion note normal. Chest symmetrical. HEART: S1, S2, no S3. No murmurs. No cyanosis or clubbing. No ascites. Pulses: Dorsalis pedis and posterior tibial pulses +1 to +2 both sides. ABDOMEN: Soft. Nontender. Bowel sounds active. No CVA tenderness. No mass felt. EXTREMITIES: No edema. Full range of motion of all extremities, equal. NEUROLOGIC: No focal deficit. Cranial nerves II through XII are grossly intact. No headache, no double vision or headache. SKIN: Not dry. Intact. Turgor - normal. LYMPHATIC: No palpable lymph nodes/no lymphedema. MUSCULOSKELETAL: Normal joints with no swelling. Muscle tone is normal. LABS: Hgb 11.9, hct 33, WBC 4,400 normal differential, creatinine 1.2, BUN 23 ASSESSMENT: 1. Acute bronchitis 2. Influenza A positive 3. Dehydration PLAN: 1. Continue steroids, antibiotics and NEBS CONDITION: Improving TIME SPENT: More than 30 minutes. Plan and coordination of the patient's care discussed in the presence of nurse. DONN
--- NOTE | 2017-06-22 13:40 | PN ---
06/18/17: Level 5 06/19/17: Intermediate 06/20/17: Intermediate 06/21/17: D as in discharge MTDD
--- NOTE | 2017-06-23 14:45 | PN ---
DATE OF SERVICE: 06/21/17 SUBJECTIVE: The patient was hospitalized with influenza B positive and acute bronchitis. The patient's condition is stable. He is better and he is up and about. Cardiovascular status is stable. The patient's echo is pending. The patient was seen and examined with Nurse Practitioner. The patient is going to be discharged home on Steroids and antibiotics. CONDITION: Stable. TIME SPENT: More than 30 minutes. Plan and coordination of the patient's care discussed in the presence of nurse. DONN
--- NOTE | 2017-06-24 09:41 | ECHO2D ---
Date of Exam: 06/21/2017 Ordering Physician: LIN ACUÑA Room #: 109 Reason for Echo: SHORT OF BREATH, COUGH, SYSTOLIC MURMUR, CABG M-Mode Normal Adult Results LV Dimensions Normal Adult Results AoV Opening excursions >1.6 >1.6 LVEDD-base- 3.5-5.8 4.6 Ao root dimensions 2.0-3.7 3.5 LVESD-base- 3.1-4.6 L. Atrium dimensions 1.9-3.8 4.6 Post. Wall thickness 0.8-1.1 1.5 IV septum (thickness) 0.7-1.2 1.4 Post. Wall excursion 0.72-1.3 NORMAL Septal motion Systolic motion R. Ventricular cavity 1.5-2.0 3.0 LVEF 60% 44% Paradoxical septal wall motion YES 2-D : PARADOXICAL SEPTAL WALL MOTION, NO THROMBUS, NO EFFUSION, ENLARGED LEFT ATRIAL CAVITY, ENLARGED RIGHT VENTRICULAR CAVITY M-MODE: MV: NORMAL AV: NORMAL TV: NORMAL PV: CHAMBER SIZE: ENLARGED LEFT ATRIAL / RIGHT VENTRICULAR CAVITY WALL MOTION: PARADOXICAL SEPTAL WALL MOTION PERICARDIUM: NORMAL INTERPRETATION: 1. LEFT VENTRICULAR HYPERTROPHY 2. ENLARGED RIGHT VENTRICULAR / LEFT ATRIAL CAVITY 3. PARADOXICAL SEPTAL WALL MOTION MTDD
--- NOTE | 2017-07-15 10:09 | HP ---
DATE OF SERVICE: 06/18/17 REASON FOR HOSPITALIZATION/HISTORY OF PRESENT ILLNESS: Started Wednesday afternoon feeling bad; dizziness and ataxia. Yesterday had temperature 103, coughing and weak. Diarrhea times 15 times. Duration of 48 hours. No symptoms at of CHF or CAD. PAST MEDICAL HISTORY: HYPOTENSION Coronary artery disease DYSLIPIDEMIA COPD HYPERTENSION BPH Restless leg syndrome MYELODYSPLASTIC SYNDROME (DR. GUEVARA) LV DYSFUNCTION GERD OSTEOARTHRITIS PAST SURGICAL HISTORY: 2 CABGS Left inguinal hernia REVIEW OF SYSTEMS: CONSTITUTIONAL: Fever, Fatigue. HEENT: Sinus drainage, no sore throat. RESPIRATORY: Cough, no congestion. CARDIOVASCULAR: No atypical chest pain for coronary artery disease. No angina , CHF symptoms, palpitations or shortness of breath. GASTROINTESTINAL: No melena or abdominal pain. No GERD. Diarrhea. GENITOURINARY: No hematuria, no prostatism, no polyuria. DRIER AND GRINDER TENDER: No blackout, no dizziness, no headache, no double vision. Gait: Unstable/ weak. MUSCULOSKELETAL: Osteoarthritis pain, no joint swelling. ENDOCRINE: No weight loss, no weight gain. SKIN: Not dry, no rash. PSYCHIATRIC: Not anxious, no depression, no suicidal thoughts, no homicidal thoughts. SOCIAL HISTORY: Marital Status: . Alcohol Usage: No. Tobacco Usage: No. FAMILY HISTORY: Father , coronary artery disease Mother , coronary artery disease Brother 3, 2 ; one at child and one coronary artery disease, one alive 75 coronary artery disease Sister 1 CA. MEDICATIONS: Doxazosin 2mg PO daily Lisinopril 2.5mg PO daily Mirapex 1.5mg PO three times per day Furosemide 20mg PO daily Voltaren 1% gel apply 2 gram to the affected area by topical route four times per day K-Tab 10meq tablet extended release take on tablet PO with food one time per day Pravastatin 40mg PO daily ALLERGIES: No known drug allergies PHYSICAL EXAMINATION: V/S: Pulse 72, blood pressure 84/44, temperature 98.8, O2 sat 91%. GENERAL APPEARANCE: Oriented times three. Skin dry. HEENT: Yellow drainage. NECK: No JVP, no bruits. RESPIRATORY: Decreased breath sounds. CARDIOVASCULAR: S1, S2, no S3, no murmurs. No cyanosis, clubbing. No ascites. GI/ABDOMEN: No tenderness. Bowel sounds are hyperactive. EXTREMITIES: +1right and Trace left edema, pulses +1, equal. DRIER AND GRINDER TENDER: Deep tendon reflexes, sensory, motor and gait all normal. RECTAL: Dr. Lynn 2011/PROSTATE: 3-17 (3.8) . LABS: ABG on room air pH 7.4, pCO2 38, pO2 64, base excess is -1, bicarb 24, TCO2 25, O2 sat 92, WBC 5.44, hgb 11.6, hct 33.7, plt count 85,000. Rapid Flu B was positive. ASSESSMENT: 1. Flu syndrome/Dehydration 2. Acute bronchitis 3. Acute gastroenteritis 4. Hypotension 5. Right sciatica 6. Right hip Osteoarthritis/right knee 7. Congestive heart failure 8. COPD 9. 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 Admit 2. Hytrin 2mg PO daily 3. Routine telemetry orders 4. Skip cardiac markers 5. 1000cc D5 1/2 normal saline 12 hourly 6. Daily CBC and CMP Am 7. TSH 8. Lomotil 2.5mg PO now and 8 Hourly PRN 9. ABG 10.Rapid Flu A&B 11.Xopenex Q 6 hours 12.Tussionex one teaspoon PO twice a day 13.BNP 14.Solu-Cortef 125mg IV now and 8 hourly 15.Rocephin 1 gram IV piggy back 24 hourly 16.Zithromax 500mg PO daily x3 days 17.Tamiflu 75mg PO twice a day x5 days TIME SPENT: More than 70 minutes. MTDD
--- NOTE | 2017-07-15 10:42 | DS ---
DATE OF SERVICE: 06/21/17 FINAL DIAGNOSIS: 1. Influenza B 2. Dehydration 3. Acute gastroenteritis 4. Acute bronchitis 5. Hypotension 6. Coronary artery disease 7. Dyslipidemia 8. COPD 9. Hypertension 10.BPH 11.Restless leg syndrome 12.Myelodysplastic syndrome (Dr. Guevara) 13.LV dysfunction 14.GERD 15.Osteoarthritis 16.Bilateral cataracts 17.Previous smoker 18.CABG, 1988 and 2000 19.Right inguinal hernia repair 20.Angioplasty LAST VITALS: Temperature 97.9, pulse 67, respiratory rate 20, blood pressure 100/59 and pulse ox 94%. DISCHARGE INSTRUCTIONS: Discharge home. An appointment is scheduled with Dr. Cha/Natalie Churchill APRN on June 28, 2017 at 11:45am. Medication changes: increase Potassium to 20meq daily. MEDICATIONS AT DISCHARGE: Lasix 40mg PO QDAC Protonix 40mg PO QDAC Mirapex 1.5mg PO three times a day Pravachol 40mg PO Q HS Doxazosin Mesylate 4mg PO daily Ultram 50-100mg PO Q 4 hours PRN Lisinopril 2.5mg PO daily Potassium Chloride 20meq daily(dose increase) ALLERGIES: No known allergies NEW PRESCRIPTIONS: Keflex 500mg three times a day for 5 days Prednisone 20mg daily for 5 days Tussionex one teaspoon (5ml) twice a day for 5 days Potassium Chloride 20meq daily (dose increased for 10meq daily) DIET INSTRUCTIONS: Resume as tolerated ACTIVITY: Gradually resume as tolerated. Rest when tired. SMOKING: N/A DISEASE SPECIFIC EDUCATION: Influenza Medications Use of steroids and risk of GI irritation Appointment HOSPITAL COURSE: This is a 81 year old white male who presented to our office on Wednesday. He had had a fever of 103 the night before with a fever of 100 in our office. He was achy, had chills, had had diarrhea 20+ times over the course of the night and was unable to hold his head up. He was subsequently admitted. He tested positive for Flu B. Kidney function was elevated showing mild dehydration. He was a direct admit from the office. Blood pressure in the office was 88/40 and it was 80/40 at the hospital. All of his blood pressure medications were held. Chest x-ray revealed changes associated with bronchitis. He was started on Tamiflu 75mg twice a day along with IV fluids. D5 1/2 normal saline at 75cc an hour. We started him on Rocephin 1 gram IV daily along with Solu-Cortef 125mg IV Q 8 hours. Over the course of the next several days he remained Afebrile. His diarrhea has slowly improved. Still today on day of discharge his Potassium was 3.1. He has been on 10meq of Potassium daily as he is on Lasix 40mg daily. We will given of 40mg three times a day prior to discharge. His diarrhea has resolved. Prior to being discharged he stated that he had had some trouble swallowing his pills so a swallow study and evaluation was done. It seems that the swallowing was normal it's just that he has problem with swallowing large pills. After low IV rehydration his blood pressure has been normal today on day of discharge it is 116/52. His kidney function has improved with BUN of 27 and creatinine 1.22 today. This is more like his baseline. WBC 3.43, hgb 11.6, hct 32.8. None of the patient's regular home medications have been changes. He will go home on Keflex 500mg three times a day for the next 5 days along with Prednisone 20mg daily for the next 5 days. We will increase his Potassium for the next 5 days at 20meq at home. He is to continue his Lasix along with his other medications. His telemetry reading showed normal sinus rhythm with occasional PVC's while he was admitted. For the past two days he has been up and about walking around. His appetite is slowly improved and for the past 24 hours has been eating about 75% of his meals. We will discharge him home in stable condition and followup next week. TIME SPENT: More than 60 minutes. DONN
== END 2017-06-21 14:55 | disposition home or self-care (01) | DRG 194 ==
LOC: MEDSURG A 10:26
PROVIDERS: ADMIT Internal Medicine; ATTEND Internal Medicine
DX: J10.1 Influenza due to other identified influenza virus with other respiratory manifestations (principal); J44.0 Chronic obstructive pulmonary disease with (acute) lower respiratory infection; I95.9 Hypotension, unspecified; J18.9 Pneumonia, unspecified organism; K52.9 Noninfective gastroenteritis and colitis, unspecified; E86.0 Dehydration; I51.89 Other ill-defined heart diseases; I10 Essential (primary) hypertension; I25.10 Atherosclerotic heart disease of native coronary artery without angina pectoris; E78.5 Hyperlipidemia, unspecified; N40.0 Benign prostatic hyperplasia without lower urinary tract symptoms; G25.81 Restless legs syndrome; D46.9 Myelodysplastic syndrome, unspecified; K21.9 Gastro-esophageal reflux disease without esophagitis; M19.90 Unspecified osteoarthritis, unspecified site; E87.6 Hypokalemia; Z87.891 Personal history of nicotine dependence; Z95.1 Presence of aortocoronary bypass graft; Z98.890 Other specified postprocedural states; Z98.61 Coronary angioplasty status; Z79.899 Other long term (current) drug therapy
CPT/HCPCS: 36415; 80053; 81001; 82803; 83880; 84443; 85025; 87502; 93005; 93010; 94640; 99223; 99232; 99239

== ENCOUNTER 2017-06-28 08:22 | Outpatient (CLI) ==
--- NOTE | 2017-06-28 09:29 | DI ---
EXAM: Modified barium swallow. History: Difficulty swallowing. Technique: Lateral video fluoroscopy was performed in conjunction with speech therapy using multiple consistencies to evaluate swallowing function. Findings / impression: No aspiration or penetration was observed. There are degenerative changes of the cervical spine with prominent anterior osteophyte at C6-7. The lordosis of the cervical spine i s also exaggerated which may contribute to the patient's dysphagia. Patient did have some difficulty swallowing a pill which did get hung up in the vallecula. Please see dedicated speech pathology rep ort for additional details.
--- NOTE | 2017-06-29 10:24 | RS.MODBRM ---
Subjective Number of treatment sessions: 1 Date of Evaluation: 06/28/17 Treatment Diagnosis: flu, swallowing difficulty Current Level of Function: This 81 year old male presented at the bedside with swallowing deficits. The pt was admitted with weakness due to flu. No hx of swallowing difficulty was reported. At the bedside the pt stated he had noticed a progressive decline in swallow ability resulting in coughing, and restricting himself with certain textures. MACHINIST MECHANIC recommened a modified swallow study to rule out aspiration and assess swallow structures to determine pathology of swallow difficulty. Current Diet: regular with thin liquids. Current Subjective/complaints:: The patient reported difficulty was primarily with medications and crunchy or crumbly food textures. He stated he coughs with a meal atleast once a day. His reported a fast rate during his meal consumption. The patient reported his primary concern was with safe swallowing. At the time of the MBSS, the patient reported improvements with swallow function , including swallowing pills. Medical History Comments:: no significant medical hx. Flu Hx Home Medications: Refer to medications list for complete current list. Patient's Goals: To safely swallow all food and liquids. Food Presented Thin Liquid: cup (no s/s of aspiration) Ground Meat: full teaspoon (Regular meat texture, no aspiration/penetration) Vanilla Wafer: 1/4 cookie (1/2 cookie presented, no aspiration/penetration) Oral Phase - Oral Phase Labial Closure: WFL Bolus Formation: Mild Impairment (peicemeal deglution) Mastication: Mild Impairment (limited rotary chew) Lingual Movement: WFL A/P Propulsion: Mild Impairment (peicemeal deglution) Premature Vallecular Pooling: Moderate (with liquids and meat texture) Oral Residue: Scant Comments:: Functional oral phase. Decreased rotary chew with meat texture. Pharyngeal Phase Pharyngeal Response: WFL (cough with pill in pyriform sinuses) Base of Tongue: Mild Impairment (poor control of bolus with valleculae and pyriform sinus pooling) Epiglottic Movement: Moderate Impairment (Minimal inversion d/t restriction from cervical spine against pharyngeal wall.) Laryngeal Excursion: Mild Impairment (Slight decrease in excursion from epiglottic restriction) Vallecular Residue: Coating (with liquids and meat texture) Pyriform Residue: Coating (with meat texture, pill stuck for two swallows.) Comments:: Poor BOT strength and coordination due to moderate valleculae and pyriform sinus pooling with thin liquids and meat texture. Thin liquids fell over vallecuale and pooled in pyriform sinuses prior to initiation of swallow, demonstrating a moderate delay. Pt at risk for aspiration on residual meat texture with consecutive swallow or use of liquid wash. Summary and Recommendations - Recommendations PO Diet: Regular, NO Dry Breads/Crackers, Thin Liquids Comments:: MACHINIST MECHANIC recommends a regular diet texture with thin liquids. Pt has reported difficulty with dry/crumbly textures as well as some regular textures i.e. peanuts. Due to pt cognitive status and independence with meal preparation , regular texture is recommended, however certain foods will be restricted from diet. The pt is at risk for aspiration on medications. MACHINIST MECHANIC recommends pills to be crushed or whole in applesauce pudding, with a consecutive drink or bite of food. Pt had best swallow response with dense textures. Further Therapy Indicated?: Yes Functional Reporting G Codes: Swallowing current CJ Goal CI Severity Impairment Rationale: Due to risk for aspiration and moderate delay in swallow response. Short Term Goals Problem: Swallow response Goal #1: Pt to complete thermal/tactile stimulation for swallow delay Goal to be met by: 07/01/17 Problem: Swallow safety Goal #2: Pt to verbalize safe swallow precautions with 100% acc. Goal to be met by: 07/01/17 Car Dumper Operator Goals Problem: Swallow Goal #1: Pt to consume regular diet texture and thin liquids w/o s/s of asp. Goal to be met by: 07/01/17 Plan Duration of Treatment: 1 Week Frequency of Treatment: 2x Anticipated Discharge Destination: Home Comments: Pt to have one time follow-up treatment. The MACHINIST MECHANIC will review detailed results of MBSS, train and educate pt with safe swallow precautions, discuss diet texture restrictions, and provide some thermal/tactile stimulation for swallow delay. - Treatment Code (1) Oropharyngeal dysphagia Code(s): R13.12 - DYSPHAGIA, OROPHARYNGEAL PHASE
== END 2017-06-28 08:23 | disposition home or self-care (01) ==
LOC: RAD 08:22
PROVIDERS: ATTEND Internal Medicine
DX: R13.10 Dysphagia, unspecified (principal)

== ENCOUNTER 2017-07-01 10:00 | Outpatient (RCR) ==
--- NOTE | 2017-07-01 10:49 | RS.DYSPHDC ---
Subjective Date of Discharge: 07/01/17 Date of Evaluation: 06/28/17 Duration of Therapy: 1 week Number of sessions: 2 Functional Reporting G Codes: Swallow current CI Goal CI Severity Impairment Rationale: Pt with dentures, pt has some restrictions with regular diet textures. Pt on regular diet texture with thin liquids. Short Term Goals Problem: Swallow delay Goal #1: Pt to complete thermal/tactile stimulation over 5 trials Goal to be met by: 07/01/17 Progress Towards Goal: Partially Met Comments:: Pt with mild-mod delay in swallow response. Texture affects response. Problem: Safe swallow Goal #2: Pt to verbalize compensatory swallow strategies with 100% acc Goal to be met by: 07/01/17 Progress Towards Goal: Met Comments:: Pt verbalized strategies with meds and reg diet texture 100% Wire Frame Dipper Goals Problem: safe swallow Goal #1: Safely consume regular diet with thin liquids Goal to be met by: 07/01/17 Progress towards goal: Met Comments:: Minimal restrictions with diet texture. Reason for Discharge Comments: Pt seen for 1x treatment post MBSS. Details of swallow study results was educated. BARREL RIB MATTING MACHINE OPERATOR wanted pt to have two separate appointments for maximum exposure to all safe swallowing information. Reason for Discharge/Current Status:: BARREL RIB MATTING MACHINE OPERATOR discharged pt due to functional swallow status. Pt currently consumes regular diet texture with thin liquids. Restrictions on regular diet texture include dry/crumbly textures and peanuts. Pt has no cognitive deficits to impact safe swallowing decisions. Pt can verbalize technique for self with heimlich maneuver. BARREL RIB MATTING MACHINE OPERATOR educated pt on strengths and challenges with swallow integrity. Pt verbalized understanding of all safe swallow precautions and techniques to be utilized. Swallowing pills was discussed in detail. Pt verbalized compensatory swallow strategies with 100 % accuracy for safe swallowing with medications.
== END 2017-07-24 ==
PROVIDERS: ATTEND Internal Medicine
DX: R13.12 Dysphagia, oropharyngeal phase (principal)

== ENCOUNTER 2017-08-11 12:38 | Outpatient (CLI) | END 2017-08-11 12:39 | disposition home or self-care (01) | LOC: LAB 12:38 | PROVIDERS: ATTEND Internal Medicine Hematology & Oncology | DX: D53.9 Nutritional anemia, unspecified (principal); D72.819 Decreased white blood cell count, unspecified | CPT/HCPCS: 36415; 80053; 82607; 82728; 82746; 83540; 83550; 85025; 86320 ==

== ENCOUNTER 2017-09-16 08:08 | Outpatient (CLI) | payer OTHER | END 2017-09-16 08:09 | disposition home or self-care (01) | LOC: LAB 08:08 | PROVIDERS: ATTEND Internal Medicine Hematology & Oncology | DX: D53.9 Nutritional anemia, unspecified (principal) | CPT/HCPCS: 36415; 85008; 85025 ==

== ENCOUNTER 2017-10-07 08:19 | Outpatient (CLI) | END 2017-10-07 08:20 | disposition home or self-care (01) | LOC: LAB 08:19 | PROVIDERS: ATTEND Internal Medicine Hematology & Oncology | DX: D53.9 Nutritional anemia, unspecified (principal) | CPT/HCPCS: 36415; 80053; 82607; 82728; 82746; 83540; 83550; 85008; 85025; 86320 ==

== ENCOUNTER 2017-12-07 09:46 | Outpatient (CLI) | END 2017-12-07 09:47 | disposition home or self-care (01) | LOC: LAB 09:46 | PROVIDERS: ATTEND Internal Medicine Hematology & Oncology | DX: D53.9 Nutritional anemia, unspecified (principal) | CPT/HCPCS: 36415; 85025 ==

== ENCOUNTER 2018-01-04 10:43 | Day surgery (SDC) ==
[2018-01-04] MEDS ORDERED: LIDOCAINE 1% 20 ML MDV ID STA (11:16)
[2018-01-04 12:07] VITALS: TEMP 97.8
[2018-01-04] MEDS ORDERED: SUBLIMAZE ONE (12:08)
[2018-01-04] MEDS ORDERED: DIPRIVAN 20 ML VIAL IVP ONE (12:08)
[2018-01-04] MEDS ORDERED: EPHEDRINE SULFATE ONE (12:08)
[2018-01-04] MEDS ORDERED: ROBINOL ONE (12:08)
--- NOTE | 2018-01-05 11:03 | OP ---
INDICATIONS FOR PROCEDURE: 82 year old gentleman presents for evaluation of iron deficient anemia on top of macrocytic anemia. He has remote history of peptic ulcer disease. He does take Diclofenac daily. MEDICATIONS: SEE ANESTHESIA NOTES. PROCEDURE: ENDOSCOPY COLONOSCOPY BIOPSY REPORT: The risks, benefits, alternatives and limitations were discussed in detail with the patient. Informed consent was obtained. After adequate sedation was achieved, the video endoscope was introduced in the posterior pharynx and esophagus under direct vision and easily advanced down to the second portion of the duodenum. I then slowly withdrew. The duodenal mucosa appeared unremarkable as did the duodenal bulb. The antrum body is relatively unremarkable. The scope was retroflexed to look at the cardia and fundus which was unremarkable. The scope was anteflexed and withdrawn back through the esophagus which was unremarkable. The patient tolerated the procedure well with stable vital signs and pulse oximetry throughout. The patient's bed was turned and a digital rectal exam revealed good tones and masses. The colonoscope was introduced to the rectum and advanced under direct visual guidance to the cecum. The cecum was identified by the appendiceal orifice and IC valve. I was the intubate the internal ileum and exam this for 8 cm. The ileum appeared unremarkable. I withdrew the scope back in the colon. In the cecum and in the proximal mid ascending colon there was colonic ulcerations. There was an ulceration at the cecal base and one again at the mid ascending. The mid ascending was the largest one a little between 8-6mm in size. I biopsied these for histological review. They appeared to be quite benign. I then slowly withdrew the scope in circumferential manner and examined the mucosa quite carefully. I looked on the proximal and distal sides of folds and flexures as best as possible. I was able to retroflex the scope in the right colon as well as retroflex the scope in the left colon to increase visualization. I noted a large number of diverticuli scattered throughout the entire left colon. No other abnormalities were noted included on retroflex view of the anal canal. The prep was good and the withdraw time was 8 minutes and 12 seconds. The patient tolerated this procedure well with stable vital signs and pulse oximetry throughout. IMPRESSION: 1. Normal upper endoscopy exam 2. Two colonic ulcers located in the cecum and ascending colon 3. Sigmoid diverticulosis 4. I question if the colonic ulcers are not NSAID induced. RECOMMENDATIONS: 1. Await pathology results 2. Strongly recommend avoiding non steroidal agents as much as possible 3. We will see him back in the office as needed CC: Dr. Semaj Guevara ADDENDUM: No pictures were taken during the exam secondary to the equipment not allowing picture taking. DONN
[2018-01-06 12:31] VITALS: BP 128/57
== END 2018-01-04 13:40 | disposition home or self-care (01) ==
LOC: SURG 10:43
PROVIDERS: ATTEND Internal Medicine Gastroenterology
DX: K57.30 Diverticulosis of large intestine without perforation or abscess without bleeding (principal); D64.9 Anemia, unspecified; K63.3 Ulcer of intestine

== ENCOUNTER 2018-01-27 08:04 | Outpatient (CLI) | payer OTHER | END 2018-01-27 08:05 | disposition home or self-care (01) | LOC: LAB 08:04 | PROVIDERS: ATTEND Internal Medicine Hematology & Oncology | DX: D53.9 Nutritional anemia, unspecified (principal) | CPT/HCPCS: 36415; 80053; 82607; 82728; 82746; 83540; 83550; 85025; 86320 ==

== ENCOUNTER 2018-05-23 08:23 | Outpatient (CLI) | END 2018-05-23 08:24 | disposition home or self-care (01) | LOC: LAB 08:23 | PROVIDERS: ATTEND Internal Medicine Hematology & Oncology | DX: D53.9 Nutritional anemia, unspecified (principal); D72.819 Decreased white blood cell count, unspecified | CPT/HCPCS: 36415; 80053; 82607; 82728; 82746; 83540; 83550; 85025; 86320 ==

== ENCOUNTER 2018-08-15 10:19 | Outpatient (CLI) | END 2018-08-15 10:20 | disposition home or self-care (01) | LOC: LAB 10:19 | PROVIDERS: ATTEND Internal Medicine Hematology & Oncology | DX: D53.9 Nutritional anemia, unspecified (principal) | CPT/HCPCS: 36415; 85025 ==

== ENCOUNTER 2018-10-10 16:04 | Outpatient (CLI) | END 2018-10-10 16:05 | disposition home or self-care (01) | LOC: LAB 16:04 | PROVIDERS: ATTEND Internal Medicine Hematology & Oncology | DX: D53.9 Nutritional anemia, unspecified (principal) | CPT/HCPCS: 36415; 80053; 82607; 82728; 82746; 83540; 83550; 85025 ==

== ENCOUNTER 2018-12-12 09:56 | Outpatient (CLI) | END 2018-12-12 09:57 | disposition home or self-care (01) | LOC: LAB 09:56 | PROVIDERS: ATTEND Internal Medicine Hematology & Oncology | DX: D53.9 Nutritional anemia, unspecified (principal) | CPT/HCPCS: 36415; 80053; 82607; 82728; 82746; 83540; 83550; 85025 ==

== ENCOUNTER 2018-12-27 09:55 | Outpatient (POV) | payer OTHER | END 2018-12-27 17:00 | LOC: OUTPT 09:55 | PROVIDERS: ATTEND Otolaryngology | DX: H91.90 Unspecified hearing loss, unspecified ear (principal) ==

== ENCOUNTER 2021-03-13 08:55 | Inpatient (IN) ==
[2021-03-13] MEDS ORDERED: SODIUM CHLORIDE 1,000 ML IV STA ×3 (09:35→16:37)
--- NOTE | 2021-03-13 09:35 | ED.PDOC ---
General ED Provider: Dr. LUCIO MOMIN Chief Complaint: Respiratory Complaint Stated Complaint: I feel out of sorts, did not sleep well last night and short of breath. Feel thirsty Time Seen by Provider: 03/13/21 09:15 Information Source: Patient, Long-Term and EMT Exam Limitations: No limitations Primary Care Provider: LIN ACUÑA Referred to ED by: PCP Nursing and Triage Documentation Reviewed and Agree: Yes Does patient meet sepsis criteria?: No System Inflammatory Response Syndrome: Not Applicable Sepsis Protocol: For patient's 13 years and over: Temp is 96.8 and below OR 101 and greater Pulse >90 BPM Resp >20/minute Acutely Altered Mental Status Are patient's symptoms suggestive of a new infection, such as: -Pneumonia -Skin, Soft Tissue -Endocarditis -UTI -Bone, Joint Infection -Implantable Device -Acute Abdominal Infection -Wound Infection -Meningitis -Blood Stream Catheter Infection -Unknown Review of Systems Review Of Systems Constitutional: Reports Weakness All Other Systems: Reviewed and Negative [facility] Medical History (Updated 03/14/21 @ 07:59 by LORENZA PARADA) Arthritis Cardiac disease Coronary artery arteriosclerosis Elevated cholesterol with elevated triglycerides Hypertension Family History SISTER No problems noted. BROTHER Elevated cholesterol Social History (Updated 03/13/21 @ 16:15 by BETO SALDANA) Smoking and tobacco status: Former smoker How long ago did patient quit smokin OR 40 YEARS AGO Second hand smoke exposure: Yes History of recent travel: No Surgical History (Updated 03/13/21 @ 16:04 by BETO SALDANA) artery bypass umbilical hernia Physical Exam Physical Exam Appearance: Reports Ill-appearing Ill-appearing: Mild Pain Distress: Not Applicable Eyes: Reports DOLORES, EOMI and Conjunctiva clear ENT: Reports Ears normal, Nose normal and Oropharynx normal Neck: Supple Respiratory: Reports Airway patent and Breath sounds diminished Cardiovascular: Reports RRR, Pulses normal, No rub and No murmur GI/: Reports Soft, Nontender, No masses and Bowel sounds normal Musculoskeletal: Reports Normal strength, ROM intact, No edema and No calf tenderness Skin: Reports Warm and Dry Neurological: Reports Sensation intact, Motor intact, Reflexes intact, Cranial nerves intact, Alert and Oriented Psychiatric: Reports Affect appropriate and Mood appropriate Interpretation EKG Interpretation Time of EKG #1: 09:36 Rate: Normal Rhythm: Sinus Ectopy: PACs [place]: Left ST Segment: Normal Interpretation: inferior infarct indet age Critical Care Note Critical Care Note Total Critical Care Time (mins): 30 Course Course Hematology/Chemistry: 03/14/21 07:23 03/14/21 07:23 Orders, Labs, Meds: Lab Review 03/13/21 03/13/21 03/13/21 09:45 09:51 09:51 WBC 7.26 RBC 4.18 L Hgb 14.4 Hct 41.8 L MCV 100.0 H MCH 34.4 H MCHC 34.4 RDW Coeff of José 12.3 Plt Count 139 L Immature Gran % (Auto) 0.6 Neut % (Auto) 78.7 H Lymph % (Auto) 9.4 L Jenkins % (Auto) 10.9 H Eos % (Auto) 0.3 Baso % (Auto) 0.1 Neut # (Auto) 5.7 Lymph # (Auto) 0.7 Jenkins # (Auto) 0.8 Eos # (Auto) 0.0 Baso # (Auto) 0.0 Immature Gran # (Auto) 0.0 ESR 62 H Puncture Site R brach Base Excess 4.9 H O2 Saturation 93.7 L ABG pH 7.53 H* ABG pCO2 33.0 L ABG pO2 61.0 L ABG HCO3 27.6 ABG Total CO2 28.6 H Moises Test Y Hemoglobin 1.8 H Oxyhemoglobin 90.4 L Carboxyhemoglobin 2.0 H Total Hemoglobin 14.5 FiO2 % 21.0 Sodium 133.8 L Potassium 3.82 Chloride 97.7 L Carbon Dioxide 29.5 Anion Gap 10.42 BUN 27.3 H Creatinine 1.09 Estimated GFR (MDRD) 65.00 BUN/Creatinine Ratio 25.04 Glucose 98.2 Lactic Acid Uric Acid 4.02 Calcium 8.36 L Magnesium 2.20 Total Bilirubin 0.95 AST 24.7 ALT 17.6 Alkaline Phosphatase 89.1 Total Creatine Kinase 25.6 L Troponin I 0.017 Total Protein 6.88 Albumin 3.56 Globulin 3.32 Albumin/Globulin Ratio 1.07 Urine Color Urine Clarity Urine pH Ur Specific [place] Urine Protein Urine Glucose (UA) Urine Ketones Urine Blood Urine Nitrite Urine Bilirubin Urine Urobilinogen Ur Leukocyte Esterase Urine Microscopic RBC Urine Microscopic WBC Ur Squamous Epith Cells Urine Bacteria Urine Mucus Adenovirus (PCR) B. pertussis DNA (PCR) B.parapertussis DNA PCR C. pneumoniae DNA (PCR) Coronavirus OC43 (PCR) Coronavirus HKU1 (PCR) Coronavirus 229E (PCR) Coronavirus NL63 (PCR) Human Metapneumovir PCR Influenza B (RT-PCR) M. pneumoniae (PCR) Parainfluenza 1 (PCR) Parainfluenza 2 (PCR) Parainfluenza 3 (PCR) Parainfluenza 4 (PCR) RSV Antigen RSV (PCR) Entero/Rhino (PCR) SARS-CoV-2 (PCR) 03/13/21 03/13/21 03/13/21 09:51 10:13 11:18 WBC RBC Hgb Hct MCV MCH MCHC RDW Coeff of José Plt Count Immature Gran % (Auto) Neut % (Auto) Lymph % (Auto) Jenkins % (Auto) Eos % (Auto) Baso % (Auto) Neut # (Auto) Lymph # (Auto) Jenkins # (Auto) Eos # (Auto) Baso # (Auto) Immature Gran # (Auto) ESR Puncture Site Base Excess O2 Saturation ABG pH ABG pCO2 ABG pO2 ABG HCO3 ABG Total CO2 Moises Test Hemoglobin Oxyhemoglobin Carboxyhemoglobin Total Hemoglobin FiO2 % Sodium Potassium Chloride Carbon Dioxide Anion Gap BUN Creatinine Estimated GFR (MDRD) BUN/Creatinine Ratio Glucose Lactic Acid 1.01 Uric Acid Calcium Magnesium Total Bilirubin AST ALT Alkaline Phosphatase Total Creatine Kinase Troponin I Total Protein Albumin Globulin Albumin/Globulin Ratio Urine Color Urine Clarity Urine pH Ur Specific [place] Urine Protein Urine Glucose (UA) Urine Ketones Urine Blood Urine Nitrite Urine Bilirubin Urine Urobilinogen Ur Leukocyte Esterase Urine Microscopic RBC Urine Microscopic WBC Ur Squamous Epith Cells Urine Bacteria Urine Mucus Adenovirus (PCR) Not detected B. pertussis DNA (PCR) Not detected B.parapertussis DNA PCR Not detected C. pneumoniae DNA (PCR) Not detected Coronavirus OC43 (PCR) Not detected Coronavirus HKU1 (PCR) Not detected Coronavirus 229E (PCR) Not detected Coronavirus NL63 (PCR) Not detected Human Metapneumovir PCR Not detected Influenza B (RT-PCR) Not detected M. pneumoniae (PCR) Not detected Parainfluenza 1 (PCR) Not detected Parainfluenza 2 (PCR) Not detected Parainfluenza 3 (PCR) Not detected Parainfluenza 4 (PCR) Not detected RSV Antigen Negative by naat RSV (PCR) Not detected Entero/Rhino (PCR) Not detected SARS-CoV-2 (PCR) Detected H 03/13/21 12:07 WBC RBC Hgb Hct MCV MCH MCHC RDW Coeff of José Plt Count Immature Gran % (Auto) Neut % (Auto) Lymph % (Auto) Jenkins % (Auto) Eos % (Auto) Baso % (Auto) Neut # (Auto) Lymph # (Auto) Jenkins # (Auto) Eos # (Auto) Baso # (Auto) Immature Gran # (Auto) ESR Puncture Site Base Excess O2 Saturation ABG pH ABG pCO2 ABG pO2 ABG HCO3 ABG Total CO2 Moises Test Hemoglobin Oxyhemoglobin Carboxyhemoglobin Total Hemoglobin FiO2 % Sodium Potassium Chloride Carbon Dioxide Anion Gap BUN Creatinine Estimated GFR (MDRD) BUN/Creatinine Ratio Glucose Lactic Acid Uric Acid Calcium Magnesium Total Bilirubin AST ALT Alkaline Phosphatase Total Creatine Kinase Troponin I Total Protein Albumin Globulin Albumin/Globulin Ratio Urine Color Yellow Urine Clarity Clear Urine pH 7.0 Ur Specific [place] 1.015 Urine Protein 1+ H Urine Glucose (UA) Negative Urine Ketones Negative Urine Blood Negative Urine Nitrite Negative Urine Bilirubin Negative Urine Urobilinogen 2.0 H Ur Leukocyte Esterase Negative Urine Microscopic RBC 0-2 Urine Microscopic WBC 0-2 Ur Squamous Epith Cells Not present Urine Bacteria Trace Urine Mucus Trace Adenovirus (PCR) B. pertussis DNA (PCR) B.parapertussis DNA PCR C. pneumoniae DNA (PCR) Coronavirus OC43 (PCR) Coronavirus HKU1 (PCR) Coronavirus 229E (PCR) Coronavirus NL63 (PCR) Human Metapneumovir PCR Influenza B (RT-PCR) M. pneumoniae (PCR) Parainfluenza 1 (PCR) Parainfluenza 2 (PCR) Parainfluenza 3 (PCR) Parainfluenza 4 (PCR) RSV Antigen RSV (PCR) Entero/Rhino (PCR) SARS-CoV-2 (PCR) Orders Category Date Time Status [facility] ADMISSION 03/13/21 13:23 Completed ABG DRAW REQUEST Stat CARDIO 03/13/21 09:45 Completed EKG-(ED ONLY) Stat CARDIO 03/13/21 09:36 Completed TELEMETRY MONITORING TELE CARE 03/13/21 13:23 Completed IV [ED IV/MEDIPORT/POWERPORT] .ONCE EMERGENCY 03/13/21 09:35 Completed ABG COOX Stat LAB 03/13/21 09:45 Completed BLOOD CULTURE (ED ONLY) Stat LAB 03/13/21 09:51 Completed CBC W/ AUTO DIFF Stat LAB 03/13/21 09:51 Completed CMP [COMPREHENSIVE METABOLIC PANEL] Stat LAB 03/13/21 09:51 Completed CPK [CREATINE KINASE] Stat LAB 03/13/21 09:51 Completed ESR Stat LAB 03/13/21 09:51 Completed LACTIC ACID Stat LAB 03/13/21 09:51 Completed MAGNESIUM Stat LAB 03/13/21 09:51 Completed RESPIRATORY PANEL 2.1 (PCR) Stat LAB 03/13/21 11:18 Completed RSV Stat LAB 03/13/21 10:13 Completed SPUTUM CULTURE Stat LAB 03/13/21 09:38 Completed TROPONIN I Stat LAB 03/13/21 09:51 Completed UA [URINALYSIS C & S IF INDICATED] Stat LAB 03/13/21 12:07 Completed URIC ACID Stat LAB 03/13/21 09:51 Completed 0.9 % Sodium Chloride [Saline Flush] MEDS 03/13/21 09:35 Discontinued 1 syr IVF PRN PRN Methylprednisolone Sod Succ/Pf [Solu-Medrol 125 mg] MEDS 03/13/21 13:22 Discontinued 125 mg IM ONCE STA Sodium Chloride 0.9% [Sodium Chloride] 1,000 ml MEDS 03/13/21 13:21 Discontinued IV 125 mls/hr Sodium Chloride 0.9% [Sodium Chloride] 1,000 ml MEDS 03/13/21 09:35 Disconti nued IV BOLUS CT CHEST W/O CONTRAST Stat RADS 03/13/21 13:21 Completed Medications Discontinued Medications Generic Name Dose Route Start Last Admin Trade Name Freq PRN Reason Stop Dose Admin Amlodipine Besylate 10 mg 03/14/21 09:00 03/14/21 09:24 Amlodipine Besylate 5 Mg Tablet PO 10 mg DAILY ZOË Administration Apixaban 2.5 mg 03/13/21 21:00 03/14/21 09:24 Apixaban 5 Mg Tab PO 2.5 mg BID ZOË Administration Bisacodyl 10 mg 03/13/21 16:49 Bisacodyl 10 Mg Supp.Rect RC PRN PRN Constipation Bisacodyl 10 mg 03/13/21 17:16 Bisacodyl 10 Mg Supp.Rect RC DAILY PRN Constipation Budesonide/Formoterol Fumarate 2 puff 03/13/21 21:00 03/14/21 10:03 Budesonide/Formoterol Fumarate 160/4.5 Mcg Inhaler IH 2 puff BID ZOË Administration Donepezil HCl 10 mg 03/13/21 21:00 03/13/21 20:55 Donepezil Hcl 10 Mg Tablet PO 10 mg BEDTIME ZOË Administration Doxazosin Mesylate 4 mg 03/14/21 09:00 03/14/21 09:23 Doxazosin Mesylate 2 Mg Tablet PO 4 mg DAILY ZOË Administration Furosemide 20 mg 03/14/21 06:30 03/14/21 05:53 Furosemide 40 Mg Tablet PO 20 mg QDAC ZOË Administration Sodium Chloride 1,000 mls @ 500 mls/hr 03/13/21 09:35 03/13/21 10:16 Sodium Chloride IV 03/13/21 11:34 500 mls/hr BOLUS STA Administration Sodium Chloride 1,000 mls @ 125 mls/hr 03/13/21 13:21 03/13/21 14:11 Sodium Chloride IV 03/13/21 21:20 125 mls/hr .Q8H STA Administration Sodium Chloride 1,000 mls @ 50 mls/hr 03/13/21 16:37 Sodium Chloride IV 03/14/21 09:20 .Q20H STA Levofloxacin/Dextrose 500 mg in 100 mls @ 100 mls/hr 03/13/21 17:00 Levaquin 500 Mg/100 Ml D5w IV 03/16/21 16:59 DAILY ZOË Levofloxacin/Dextrose 500 mg in 100 mls @ 100 mls/hr 03/13/21 17:00 03/13/21 17:55 Levaquin 500 Mg/100 Ml D5w IV 03/13/21 17:59 100 mls/hr ONCE ONE Administration Levofloxacin/Dextrose 250 mg in 50 mls @ 50 mls/hr 03/14/21 09:00 Levaquin 250 Mg/50 Ml D5w IV 03/17/21 08:59 DAILY ZOË Levofloxacin/Dextrose 500 mg in 100 mls @ 100 mls/hr 03/14/21 09:00 03/14/21 10:07 Levaquin 500 Mg/100 Ml D5w IV 03/16/21 08:59 Not Given DAILY ZOË Levofloxacin 250 mg 03/14/21 10:00 03/14/21 10:03 Levofloxacin 500 Mg Tablet PO 03/17/21 09:59 250 mg QDAC ZOË Administration Lorazepam 1 mg 03/13/21 16:50 Lorazepam 1 Mg Tablet PO PRN PRN Anxiety Lorazepam 1 mg 03/13/21 17:17 03/13/21 22:51 Lorazepam 1 Mg Tablet PO 1 mg TID PRN Administration Anxiety Meloxicam 7.5 mg 03/14/21 09:00 Meloxicam 7.5 Mg Tablet PO DAILY ZOË Memantine 10 mg 03/14/21 09:00 03/14/21 09:24 Memantine Hcl 10 Mg Tablet PO 10 mg DAILY ZOË Administration Methylprednisolone Sodium Succinate 125 mg 03/13/21 13:22 03/13/21 14:12 Methylprednisolone Sod Succ/Pf 125 Mg/2 Ml Vial IM 03/13/21 13:23 125 mg ONCE STA Administration Methylprednisolone Sodium Succinate 125 mg 03/13/21 21:00 03/14/21 05:53 Methylprednisolone Sod Succ/Pf 125 Mg/2 Ml Vial IVP 125 mg Q8HR ZOË Administration Non-Formulary Medication 5 mg 03/13/21 21:00 03/13/21 20:57 Melatonin PO Not Given BEDTIME ZOË Potassium Chloride 20 meq 03/14/21 08:30 03/14/21 09:24 Potassium Chloride 20 Meq Tab PO 20 meq DAILYWM ZOË Administration Pramipexole Dihydrochloride 1 mg 03/13/21 21:00 03/14/21 09:24 Pramipexole Di-Hcl 1 Mg Tablet PO 1 mg TID ZOË Administration Pravastatin Sodium 40 mg 03/13/21 21:00 03/13/21 20:55 Pravastatin Sodium 40 Mg Tablet PO 40 mg BEDTIME ZOË Administration Sodium Chloride 1 syr 03/13/21 09:35 03/13/21 10:16 0.9% Sodium Chloride 10 Ml Disp.Syrin IVF 1 syr PRN PRN Administration To flush IV Vital Signs: Temp Pulse Resp BP Pulse Ox 03/13/21 08:59 98.6 F 72 18 137/60 93 L Discharge Plan Discharge Patient Disposition: ADMITTED INPATIENT Discharge Problem: COVID-19 long hauler, Shortness of breath, COPD (chronic obstructive pulmonary disease) ED Provider: LUCIO MOMIN Condition: Good Physician Progress Note: []
[2021-03-13 09:52] LABS: ABG O2 HGB 90.4 % (95-100); BEecf 4.9 (-2.0-3.0); HCO3 27.6 (21-28); MetHb 1.8 (0-1.5); TCO2 28.6 (19-24); sO2 93.7 % (94-98); tHb 14.5 g/dl (11.7-17.4)
[2021-03-13 09:53] LABS: ABG PH 7.53 (7.35-7.45)
[2021-03-13 09:57] LABS: BASOPHILS % (AUTO) 0.1 % (0.0-3.0); EOSINOPHILS % (AUTO) 0.3 % (0.0-7.0); HEMATOCRIT 41.8 % (42.0-52.0); HEMOGLOBIN 14.4 g/dl (14.0-18.0); IMMATURE GRANULOCYTE % (AUTO) 0.6 % (0.0-5.0); LYMPHOCYTES # (AUTO) 0.7 K/uL (0.60-3.4); LYMPHOCYTES % (AUTO) 9.4 (10.0-50.0); MEAN CORPUSCULAR HEMOGLOBIN 34.4 pg (27.0-31.0); MEAN CORPUSCULAR HGB CONC 34.4 (31.8-35.4); MONOCYTES # (AUTO) 0.8 K/uL (0.4-2.0); MONOCYTES % (AUTO) 10.9 (0-10); NEUTROPHILS # (AUTO) 5.7 K/ul (2.0-6.9); NEUTROPHILS % (AUTO) 78.7 % (42.2-75.2); PLATELET COUNT 139 10^3/uL (140-440); RDW COEFFICIENT OF VARIATION 12.3 % (11.6-14.8); RED BLOOD COUNT 4.18 10^6/ul (4.70-6.10); WHITE BLOOD COUNT 7.26 K/ul (4.2-10.2)
[2021-03-13 10:09] LABS: ALANINE AMINOTRANSFERASE 17.6 U/L (0-50); ALBUMIN 3.56 g/dL (3.5-5.0); ALKALINE PHOSPHATASE 89.1 U/L (56-119); ASPARTATE AMINO TRANSFERASE 24.7 U/L (17-59); BILIRUBIN,TOTAL 0.95 mg/dL (0.2-1.3); BLOOD UREA NITROGEN 27.3 mg/dL (9-20); CALCIUM 8.36 mg/dL (8.4-10.2); CARBON DIOXIDE 29.5 mmol/L (22-30.0); CHLORIDE 97.7 mmol/L (98-107); CREATINE KINASE 25.6 U/L (55-170); CREATININE 1.09 mg/dL (0.60-1.10); GLUCOSE 98.2 mg/dL (74-106); MAGNESIUM 2.2 mg/dL (1.6-2.3); POTASSIUM 3.82 mmol/L (3.5-5.1); SODIUM 133.8 mmol/L (134.5-145); TOTAL PROTEIN 6.88 g/dL (6.3-8.2); URIC ACID 4.02 mg/dL (3.5-8.5)
[2021-03-13 10:20] LABS: TROPONIN I 0.017 ng/ml (0.0000-0.120)
[2021-03-13 10:43] LABS: ERYTHROCYTE SEDIMENTATION RATE 62 mm/hr (0-15)
[2021-03-13 11:22] LABS: RSV MOLECULAR NEGATIVE BY NAAT (NEGATIVE)
[2021-03-13 11:40] LABS: BORDETELLA PARAPERTUSSIS (PCR) NOT DETECTED (NOT DETECT); BORDETELLA PERTUSSIS (PCR) NOT DETECTED (NOT DETECT); CHLAMYDIA PNEUMONIAE (PCR) NOT DETECTED (NOT DETECT); CORONAVIRUS 229E (PCR) NOT DETECTED (NOT DETECT); CORONAVIRUS HKU1 (PCR) NOT DETECTED (NOT DETECT); CORONAVIRUS NL63 (PCR) NOT DETECTED (NOT DETECT); CORONAVIRUS OC43 (PCR) NOT DETECTED (NOT DETECT); HUMAN METAPNEUMOVIRUS (PCR) NOT DETECTED (NOT DETECT); HUMAN RHINOVIRUS/ENTEROV (PCR) NOT DETECTED (NOT DETECT); INFLUENZA B (PCR) NOT DETECTED (NOT DETECT); MYCOPLASMA PNEUMONIAE (PCR) NOT DETECTED (NOT DETECT); PARAINFLUENZA VIRUS 1 (PCR) NOT DETECTED (NOT DETECT); PARAINFLUENZA VIRUS 2 (PCR) NOT DETECTED (NOT DETECT); PARAINFLUENZA VIRUS 3 (PCR) NOT DETECTED (NOT DETECT); PARAINFLUENZA VIRUS 4 (PCR) NOT DETECTED (NOT DETECT); RESPIRATORY SYNCYTIAL V (PCR) NOT DETECTED (NOT DETECT)
[2021-03-13 12:14] LABS: BILIRUBIN,URINE Negative (NEGATIVE); CLARITY,URINE Clear (CLEAR); COLOR,URINE Yellow (YELLOW); GLUCOSE, URINE (UA) Negative (NEGATIVE); KETONES,URINE Negative (NEGATIVE); LEUKOCYTE ESTERASE ,URINE Negative (NEGATIVE); NITRITE,URINE Negative (NEGATIVE); PROTEIN,URINE 1+ (NEGATIVE); URINE, BLOOD Negative (NEGATIVE)
[2021-03-13 12:32] LABS: SQUAMOUS EPITHELIAL CELL,UR NOT PRESENT (0-5); URINE RBC, MICROSCOPIC 0-2 (0-2); URINE WBC, MICROSCOPIC 0-2 (0-2)
[2021-03-13 12:33] LABS: BACTERIA,URINE TRACE (NOT PRESENT); MUCUS,URINE TRACE (NOT PRESENT)
[2021-03-13 12:43] LABS: ADENOVIRUS (PCR) NOT DETECTED (NOT DETECT); SARS_COV_2 (PCR) DETECTED (NOT DETECT)
[2021-03-13] MEDS ORDERED: SOLU-MEDROL 125 MG IM STA (13:22)
--- NOTE | 2021-03-13 14:39 | CT ---
EXAM: CT chest without contrast. HISTORY: COVID-19 pneumonia. COMPARISON: CT 08/02/2016. TECHNIQUE: Multiple axial images of the chest were obtained without intravenous contrast. Images we re reformatted in the sagittal and coronal planes. FINDINGS: CABG changes noted. Heart at the upper limits normal in size. Atherosclerotic calcificat ions in the right coronary arteries. No pericardial effusion. Limited assessment for lymphadenopathy without contrast. Diffuse consolidation and ground-glass opacities throughout the left lower lobe with findings present to a lesser extent in the right lower lobe and posterior left upper lobe/lingula. A few subpleural nodular foci in the anterior right middle lobe. Calcified granulomata noted. Small left pleural eff usion. There is no pneumothorax. There is no acute abnormality in the upper abdomen. Left renal cyst. Degenerative changes present in the spine. IMPRESSION: 1. Bilateral pneumonia, with greatest involvement in the left lower lobe. Follow-up in 3 months rec ommended for reassessment. 2. Small left pleural effusion. All CT scans are performed using dose optimization techniques as appropriate to the performed exam an d include at least one of the following: Automated exposure control, adjustment of the mA and/or kV according t o size, and the use of iterative reconstruction technique.
[2021-03-13 15:45] VITALS: TEMP 98.1; BMI 21.2
[2021-03-13] MEDS ORDERED: DULCOLAX RC PRN ×2 (16:49→17:16)
[2021-03-13] MEDS ORDERED: ATIVAN PO PRN ×2 (16:50→17:17)
[2021-03-13] MEDS ORDERED: LEVAQUIN 500 MG/100 ML D5W 500 MG/100 ML BAG IV ONE (17:00)
[2021-03-13] MEDS ORDERED: LEVAQUIN 500 MG/100 ML D5W 500 MG/100 ML BAG IV SCH (17:00)
[2021-03-13] MEDS ORDERED: MOBIC PO SCH (18:14)
[2021-03-13] MEDS: MIRAPEX PO SCH (20:55)
[2021-03-13] MEDS: SYMBICORT 160-4.5 MCG INHALER IH SCH (20:56)
[2021-03-13] MEDS: ELIQUIS PO SCH (20:56)
[2021-03-13] MEDS ORDERED: ARICEPT PO SCH (21:00)
[2021-03-13] MEDS ORDERED: MELATONIN 5 MG PO SCH (21:00)
[2021-03-13] MEDS ORDERED: PRAVACHOL PO SCH (21:00)
[2021-03-13] MEDS: SOLU-MEDROL 125 MG IVP SCH (22:00)
[2021-03-14 05:48] VITALS: BP 114/58
[2021-03-14] MEDS: SOLU-MEDROL 125 MG IVP SCH (05:53)
[2021-03-14] MEDS ORDERED: LASIX TAB PO SCH (06:30)
[2021-03-14 07:28] LABS: BASOPHILS % (AUTO) 0.3 % (0.0-3.0); HEMATOCRIT 36.3 % (42.0-52.0); HEMOGLOBIN 12.7 g/dl (14.0-18.0); IMMATURE GRANULOCYTE % (AUTO) 0.3 % (0.0-5.0); LYMPHOCYTES # (AUTO) 0.3 K/uL (0.60-3.4); LYMPHOCYTES % (AUTO) 7.2 (10.0-50.0); MEAN CORPUSCULAR HEMOGLOBIN 34.8 pg (27.0-31.0); MEAN CORPUSCULAR VOLUME 99.5 fl (80.0-94.0); MONOCYTES # (AUTO) 0.1 K/uL (0.4-2.0); MONOCYTES % (AUTO) 2.2 (0-10); NEUTROPHILS # (AUTO) 3.3 K/ul (2.0-6.9); PLATELET COUNT 120 10^3/uL (140-440); RDW COEFFICIENT OF VARIATION 11.9 % (11.6-14.8); RED BLOOD COUNT 3.65 10^6/ul (4.70-6.10); WHITE BLOOD COUNT 3.63 K/ul (4.2-10.2)
[2021-03-14 07:40] LABS: ALANINE AMINOTRANSFERASE 16.5 U/L (0-50); ALBUMIN 2.93 g/dL (3.5-5.0); ALKALINE PHOSPHATASE 73.1 U/L (56-119); BILIRUBIN,TOTAL 0.77 mg/dL (0.2-1.3); BLOOD UREA NITROGEN 22.6 mg/dL (9-20); CALCIUM 8.04 mg/dL (8.4-10.2); CHLORIDE 103.7 mmol/L (98-107); CREATININE 0.78 mg/dL (0.60-1.10); GLUCOSE 183.2 mg/dL (74-106); POTASSIUM 3.8 mmol/L (3.5-5.1); SODIUM 132.8 mmol/L (134.5-145); TOTAL PROTEIN 6.03 g/dL (6.3-8.2)
[2021-03-14] MEDS ORDERED: K-DUR PO SCH (08:30)
[2021-03-14] MEDS ORDERED: LEVAQUIN 250 MG/50 ML D5W 250 MG/50 ML BAG IV SCH (09:00)
[2021-03-14] MEDS ORDERED: MOBIC PO SCH (09:00)
[2021-03-14] MEDS ORDERED: NAMENDA PO SCH (09:00)
[2021-03-14] MEDS ORDERED: NORVASC PO SCH (09:00)
[2021-03-14] MEDS ORDERED: CARDURA PO SCH (09:00)
[2021-03-14] MEDS ORDERED: POTASSIUM CHLORIDE 20 MEQ PO SCH (09:00)
[2021-03-14] MEDS ORDERED: DOXAZOSIN 8 MG PO SCH (09:00)
--- NOTE | 2021-03-14 09:20 | PCM.PROG ---
Attending Provider: ATTENDING PROVIDER: Dr. LIN ACUÑA DATE OF SERVICE: 03/14/21 SUBJECTIVE: This 85 year old /WHITE M was hospitalized 03/13/21 with weakness, dehydration and shortness of breath. The patient was admitted for IV fluids and steroids. The patient's condition improved and he is feeling a lot better. He wants to go back to the nursing so he can restart his rehab. REVIEW OF SYSTEMS: CONSTITUTIONAL: No night sweats. No fatigue, malaise, lethargy. No fever or chills. HEENT: Eyes: No visual changes. No eye pain. No eye discharge. ENT: No runny nose. No epistaxis. No sinus pain. No odynophagia. No congestion. RESPIRATORY: No cough, no congestion. No hemoptysis. No shortness of breath. CARDIOVASCULAR: No angina symptoms. No CHF symptoms. No atypical chest pain for CAD. No palpitations. No orthopnea.. GASTROINTESTINAL: No abdominal pain. No nausea or vomiting. No diarrhea or constipation. No hematemesis. No hematochezia. GENITOURINARY: No urgency. No frequency. No dysuria. No hematuria. No obstructive symptoms. No discharge. No pain. No significant abnormal bleeding. MUSCULOSKELETAL: No musculoskeletal pain; no joint swelling. NEUROLOGICAL: Awake, alert, oriented to time, place and person. No headache. No neck pain. No syncope. No seizures. No dizziness. PSYCHIATRIC: Not anxious. No depression. No suicidal thoughts. No homicidal thoughts. SKIN: No rash. No lesions. No wounds. ENDOCRINE: No unexplained weight loss. No weight gain. HEMATOLOGIC/LYMPHATIC: No anemia. No purpura. No petechiae. No prolonged or excessive bleeding. No palpable lymph nodes. PHYSICAL EXAMINATION: GENERAL: The patient is awake, alert and oriented, sitting in bed in no distress. VITAL SIGNS: Temperature 98.1 F, Pulse 60, Respiratory Rate 18, BP 114/58, Pulse Ox 95% HEENT: Head normocephalic, atraumatic. Eyes: Extraocular muscles are intact. Pupils are equal, round and reactive to light and accommodation. Ears: No lesions. Nose appeared normal. Throat: No exudate or erythema. NECK: Supple. No JVD, no carotid bruit. No lymphadenopathy or thyromegaly. LUNGS: Creps dry at the bases. Clear to auscultation. Percussion note normal. Chest symmetrical. HEART: S1, S2, no S3. No murmurs. No cyanosis or clubbing. No ascites. Pulses: Dorsalis pedis and posterior tibial pulses +1 to +2 both sides. ABDOMEN: Soft. Non-tender. Bowel sounds active. No CVA tenderness. No mass felt. EXTREMITIES: No edema. Full range of motion of all extremities, equal. NEUROLOGIC: No focal deficit. Cranial nerves II through XII are grossly intact. No headache, no double vision or headache. SKIN: Warm and dry. Intact. Turgor-normal. LYMPHATIC: No palpable lymph nodes/no lymphedema. MUSCULOSKELETAL: Normal joints with no swelling. Muscle tone is normal. LAB REVIEW: 03/14/21 07:23 03/14/21 07:23 03/14/21 07:23: Sodium 132.8 L, Potassium 3.80, Chloride 103.7, Carbon Dioxide 24.0, Anion Gap 8.90, BUN 22.6 H, Creatinine 0.78, Estimated GFR (MDRD) 95.00, BUN/Creatinine Ratio 28.97, Glucose 183.2 H D, Calcium 8.04 L, Total Bilirubin 0 .77, AST 21.0, ALT 16.5, Alkaline Phosphatase 73.1, Total Protein 6.03 L, Albumin 2.93 L, Globulin 3.10, Albumin/Globulin Ratio 0.94 03/14/21 07:23: WBC 3.63 L, RBC 3.65 L, Hgb 12.7 L, Hct 36.3 L, MCV 99.5 H, MCH 34.8 H, MCHC 35.0, RDW Coeff of José 11.9, Plt Count 120 L, Immature Gran % (Auto) 0.3, Neut % (Auto) 90.0 H, Lymph % (Auto) 7.2 L, Borden % (Auto) 2.2, Eos % (Auto) 0.0, Baso % (Auto) 0.3, Neut # (Auto) 3.3, Lymph # (Auto) 0.3 L, [place] # (Auto) 0.1 L, Eos # (Auto) 0.0, Baso # (Auto) 0.0, Immature Gran # (Auto) 0.0 03/13/21 12:07: Urine Color Yellow, Urine Clarity Clear, Urine pH 7.0, Ur Specific [place] 1.015, Urine Protein 1+ H, Urine Glucose (UA) Negative, Urine Ketones Negative, Urine Blood Negative, Urine Nitrite Negative, Urine Bilirubin Negative, Urine Urobilinogen 2.0 H, Ur Leukocyte Esterase Negative, Urine Microscopic RBC 0-2, Urine Microscopic WBC 0-2, Ur Squamous Epith Cells Not present, Urine Bacteria Trace, Urine Mucus Trace 03/13/21 11:18: Adenovirus (PCR) Not detected, B. pertussis DNA (PCR) Not detected, B.parapertussis DNA PCR Not detected, C. pneumoniae DNA (PCR) Not detected, Coronavirus OC43 (PCR) Not detected, Coronavirus HKU1 (PCR) Not detected, Coronavirus 229E (PCR) Not detected, Coronavirus NL63 (PCR) Not detected, Human Metapneumovir PCR Not detected, Influenza B (RT-PCR) Not detected, M. pneumoniae (PCR) Not detected, Parainfluenza 1 (PCR) Not detected, Parainfluenza 2 (PCR) Not detected, Parainfluenza 3 (PCR) Not detected, Parainfluenza 4 (PCR) Not detected, RSV (PCR) Not detected, Entero/Rhino (PCR) Not detected, SARS-CoV-2 (PCR) Detected H 03/13/21 10:13: RSV Antigen Negative by naat 03/13/21 09:51: Lactic Acid 1.01 03/13/21 09:51: Sodium 133.8 L, Potassium 3.82, Chloride 97.7 L, Carbon Dioxide 29.5, Anion Gap 10.42, BUN 27.3 H, Creatinine 1.09, Estimated GFR (MDRD) 65.00, BUN/Creatinine Ratio 25.04, Glucose 98.2, Uric Acid 4.02, Calcium 8.36 L, Magnesium 2.20, Total Bilirubin 0.95, AST 24.7, ALT 17.6, Alkaline Phosphatase 89.1, Total Creatine Kinase 25.6 L, Troponin I 0.017, Total Protein 6.88, Albumin 3.56, Globulin 3.32, Albumin/Globulin Ratio 1.07 03/13/21 09:51: WBC 7.26, RBC 4.18 L, Hgb 14.4, Hct 41.8 L, MCV 100.0 H, MCH 34.4 H, MCHC 34.4, RDW Coeff of José 12.3, Plt Count 139 L, Immature Gran % (Auto) 0.6, Neut % (Auto) 78.7 H, Lymph % (Auto) 9.4 L, [place] % (Auto) 10.9 H, Eos % (Auto) 0.3, Baso % (Auto) 0.1, Neut # (Auto) 5.7, Lymph # (Auto) 0.7, [place] # (Auto) 0.8, Eos # (Auto) 0.0, Baso # (Auto) 0.0, Immature Gran # (Auto) 0.0, ESR 62 H 03/13/21 09:45: Puncture Site R brach, Base Excess 4.9 H, O2 Saturation 93.7 L, ABG pH 7.53 H*, ABG pCO2 33.0 L, ABG pO2 61.0 L, ABG HCO3 27.6, ABG Total CO2 28.6 H, Moises Test Y, Hemoglobin 1.8 H, Oxyhemoglobin 90.4 L, Carboxyhemoglobin 2.0 H, Total Hemoglobin 14.5, FiO2 % 21.0 ASSESSMENT: Please see below. 1. Chronic lung disease with chronic bronchitis 2. History of COVID pneumonia recent 2 weeks ago, recovered 3. Coronary artery disease PLAN: 1. Discharge back to the halfway 2. Prednisone 10mg daily for 10 days with meal 3. Continue the rest of the medication 4. Push oral fluids 5. The patient will be seen in 7-10 days in the office on follow-up 6. Apixaban 2.5mg BID has been given to prevent any complications of thrombosis from COVID. Continue for another 10 days. After that stop. 7. The patient needs to be on Baby Aspirin 81mg 8. Discontinue Meloxicam 9. Levaquin 250mg PO daily for 5 days. Plan and coordination of the patient's care discussed in the presence of Acid Retort Operator and nurse. SCRIBED BY: LORENZA PARADA Equipment Operating Engineer scribed while in presence of service performed by Dr. LIN ACUÑA on 03/14/21 ([id number])
[2021-03-14] MEDS: MIRAPEX PO SCH (09:24)
[2021-03-14] MEDS: ELIQUIS PO SCH (09:24)
[2021-03-14] MEDS: LEVAQUIN 500 MG/100 ML D5W 500 MG/100 ML BAG IV SCH ×2 (09:24→10:07)
--- NOTE | 2021-03-14 09:26 | PN ---
03/13/2021: Level 5 03/14/2021: Intermediate MTDD
--- NOTE | 2021-03-14 09:26 | HP ---
DATE OF SERVICE: FINAL DIAGNOSIS: 1. Dehydration 2. Chronic bronchitis from chronic lung disease 3. History of COVID pneumonia 4. Respiratory failure two weeks ago 5. Coronary artery disease 6. Dyslipidemia 7. Hypertension 8. Generalized osteoarthritis 9. CABG DISCHARGE INSTRUCTIONS: Followup appointment in days with . MEDICATIONS AT DISCHARGE: NEW PRESCRIPTIONS: DISCONTINUED MEDICATIONS: DIET INSTRUCTIONS: ACTIVITY: SMOKING: DISEASE SPECIFIC EDUCATION: HOSPITAL COURSE: 85 year old white male hospitalized because of dehydration and worsening of chronic bronchitis symptoms. The patient was given IV steroids and IV fluids. The patient's condition has improved. Creatinine on discharge is still pending but on admission was 1 with BUN of 27. pO2 61 with saturation of 93% on room air. The patient is feeling a lot better. The patient's hydration status on physical exam has improved. He wants to go back to the custodial to start rehab. He was discharged from [facility] recently after being treated with COVID related symptoms. 03/02/2021 he was admitted to [facility], went back to the custodial and then was hospitalized here because at the custodial he was noted to have weakness and was restless that morning. CONDITION: Stable TIME SPENT: More than 60 minutes. MTDD
--- NOTE | 2021-03-14 09:27 | DS ---
DATE OF SERVICE: 03/14/2021 FINAL DIAGNOSIS: 1. Dehydration 2. Chronic bronchitis from chronic lung disease 3. History of COVID pneumonia 4. Respiratory failure two weeks ago 5. Coronary artery disease 6. Dyslipidemia 7. Hypertension 8. Generalized osteoarthritis 9. CABG 2000 10.Influenza B 11.CAD 12.Dyslipidemia 13.COPD 14.Hypertension 15.BPH 16.RLS 17.Myelodysplastic syndrome (Dr. Guevara) 18.GERD 19.Osteoarthritis 20.Bilateral cataracts 21.Previous smoker 22.Right inguinal hernia repair angioplasty. LAST VITALS: Temp Pulse Resp BP Pulse Ox 98.1 F 60 18 114/58 L 95 03/14/21 05:44 03/14/21 05:44 03/14/21 05:44 03/14/21 05:44 03/14/21 05:44 DISCHARGE INSTRUCTIONS: DISCHARGE: RETURN TO [facility]. MD FOLLOW UP: TO SEE DR. ACUÑA/JACY DAMICO APRN/ ABDIEL CARDOSO APRN IN THE OFFICE ON MARCH 25, 2021 @ 1:OO PM. CONTINUE SAME FACILITY ORDERS PRIOR TO HOSPITALIZATION. OXYGEN: 2 L/M PER N/C TO KEEP OXYGEN 90% OR ABOVE. CODE STATUS: DO NOT RESUSCITATE. TAKE THESE MEDICATIONS AT HOME: Amlodipine Besylate (Amlodipine Besylate 5 Mg Tablet) 10 mg PO DAILY ZOË Apixaban (Apixaban 5 Mg Tab) 2.5 mg PO BID ZOË X 10 MORE DAYS THEN STOP Last Admin: 03/13/21 20:56 Dose: 2.5 mg ASA 81 MG PO DAILY AFTER ELIQUIS IS COMPLETED Bisacodyl (Bisacodyl 10 Mg Supp.Rect) 10 mg RC DAILY PRN PRN Reason: Constipation Budesonide/Formoterol Fumarate (Budesonide/Formoterol Fumarate 160/4.5 Mcg Inhaler) 2 puff IH BID [facility] Last Admin: 03/13/21 20:56 Dose: 2 puff Donepezil HCl (Donepezil Hcl 10 Mg Tablet) 10 mg PO BEDTIME [facility] Last Admin: 03/13/21 20:55 Dose: 10 mg Doxazosin Mesylate (Doxazosin Mesylate 2 Mg Tablet) 4 mg PO DAILY ZOË Furosemide (Furosemide 40 Mg Tablet) 20 mg PO QDAC [facility] Last Admin: 03/14/21 05:53 Dose: 20 mg Lorazepam (Lorazepam 1 Mg Tablet) 1 mg PO TID PRN PRN Reason: Anxiety Last Admin: 03/13/21 22:51 Dose: 1 mg Memantine (Memantine Hcl 10 Mg Tablet) 10 mg PO DAILY [facility] Melatonin 5 mg PO BEDTIME [facility] Last Admin: 03/13/21 20:57 Dose: Not Given Potassium Chloride (Potassium Chloride 20 Meq Tab) 20 meq PO DAILYWM [facility] Pramipexole Dihydrochloride (Pramipexole Di-Hcl 1 Mg Tablet) 1 mg PO TID [facility] Last Admin: 03/13/21 20:55 Dose: 1 mg Pravastatin Sodium (Pravastatin Sodium 40 Mg Tablet) 40 mg PO BEDTIME [facility] Last Admin: 03/13/21 20:55 Dose: 40 MG PREDNISONE 10 MG PO DAILY X 10 DAYS WITH FOOD LEVAQUIN 250 MG PO DAILY X 5 DAYS ALLERGIES: No Known Allergies Allergy (Verified 03/13/21 09:10) DISCONTINUED MEDICATIONS: MOBIC NEW PRESCRIPTIONS: ELIQUIS 2.5 PO BID X 10 DAYS ASA 81 MG PO DAILY AFTER ELIQUIS IS COMPLETED PREDNISONE 10 MG PO DAILY X 10 DAYS WITH FOOD LEVAQUIN 250 MG PO DAILY X 5 DAYS SMOKING: N/A DISEASE SPECIFIC EDUCATION: DEHYDRATION CHRONIC BRONCHITIS BLEEDING PRECAUTIONS FALL PRECAUTIONS COVID MEDICATION CHANGES LAB REVIEW: 03/14/21 07:23 03/14/21 07:23 03/14/21 07:23: Sodium 132.8 L, Potassium 3.80, Chloride 103.7, Carbon Dioxide 24.0, Anion Gap 8.90, BUN 22.6 H, Creatinine 0.78, Estimated GFR (MDRD) 95.00, BUN/Creatinine Ratio 28.97, Glucose 183.2 H D, Calcium 8.04 L, Total Bilirubin 0.77, AST 21.0, ALT 16.5, Alkaline Phosphatase 73.1, Total Protein 6.03 L, Albumin 2.93 L, Globulin 3.10, Albumin/Globulin Ratio 0.94 03/14/21 07:23: WBC 3.63 L, RBC 3.65 L, Hgb 12.7 L, Hct 36.3 L, MCV 99.5 H, MCH 34.8 H, MCHC 35.0, RDW Coeff of José 11.9, Plt Count 120 L, Immature Gran % (Auto) 0.3, Neut % (Auto) 90.0 H, Lymph % (Auto) 7.2 L, [place] % (Auto) 2.2, Eos % (Auto) 0.0, Baso % (Auto) 0.3, Neut # (Auto) 3.3, Lymph # (Auto) 0.3 L, [place] # (Auto) 0.1 L, Eos # (Auto) 0.0, Baso # (Auto) 0.0, Immature Gran # (Auto) 0.0 03/13/21 12:07: Urine Color Yellow, Urine Clarity Clear, Urine pH 7.0, Ur Specific [place] 1.015, Urine Protein 1+ H, Urine Glucose (UA) Negative, Urine Ketones Negative, Urine Blood Negative, Urine Nitrite Negative, Urine Bilirubin Negative, Urine Urobilinogen 2.0 H, Ur Leukocyte Esterase Negative, Urine Microscopic RBC 0-2, Urine Microscopic WBC 0-2, Ur Squamous Epith Cells Not present, Urine Bacteria Trace, Urine Mucus Trace 03/13/21 11:18: Adenovirus (PCR) Not detected, B. pertussis DNA (PCR) Not detected, B.parapertussis DNA PCR Not detected, C. pneumoniae DNA (PCR) Not detected, Coronavirus OC43 (PCR) Not detected, Coronavirus HKU1 (PCR) Not detected, Coronavirus 229E (PCR) Not detected, Coronavirus NL63 (PCR) Not detected, Human Metapneumovir PCR Not detected, Influenza B (RT-PCR) Not detected, M. pneumoniae (PCR) Not detected, Parainfluenza 1 (PCR) Not detected, Parainfluenza 2 (PCR) Not detected, Parainfluenza 3 (PCR) Not detected, Parainfluenza 4 (PCR) Not detected, RSV (PCR) Not detected, Entero/Rhino (PCR) Not detected, SARS-CoV-2 (PCR) Detected H 03/13/21 10:13: RSV Antigen Negative by naat 03/13/21 09:51: Lactic Acid 1.01 03/13/21 09:51: Sodium 133.8 L, Potassium 3.82, Chloride 97.7 L, Carbon Dioxide 29.5, Anion Gap 10.42, BUN 27.3 H, Creatinine 1.09, Estimated GFR (MDRD) 65.00, BUN/Creatinine Ratio 25.04, Glucose 98.2, Uric Acid 4.02, Calcium 8.36 L, Magnesium 2.20, Total Bilirubin 0.95, AST 24.7, ALT 17.6, Alkaline Phosphatase 89.1, Total Creatine Kinase 25.6 L, Troponin I 0.017, Total Protein 6.88, Albumin 3.56, Globulin 3.32, Albumin/Globulin Ratio 1.07 03/13/21 09:51: WBC 7.26, RBC 4.18 L, Hgb 14.4, Hct 41.8 L, MCV 100.0 H, MCH 34.4 H, MCHC 34.4, RDW Coeff of José 12.3, Plt Count 139 L, Immature Gran % (Auto) 0.6, Neut % (Auto) 78.7 H, Lymph % (Auto) 9.4 L, [place] % (Auto) 10.9 H, Eos % (Auto) 0.3, Baso % (Auto) 0.1, Neut # (Auto) 5.7, Lymph # (Auto) 0.7, [place] # (Auto) 0.8, Eos # (Auto) 0.0, Baso # (Auto) 0.0, Immature Gran # (Auto) 0.0, ESR 62 H 03/13/21 09:45: Puncture Site R brach, Base Excess 4.9 H, O2 Saturation 93.7 L, ABG pH 7.53 H*, ABG pCO2 33.0 L, ABG pO2 61.0 L, ABG HCO3 27.6, ABG Total CO2 28.6 H, Moises Test Y, Hemoglobin 1.8 H, Oxyhemoglobin 90.4 L, Carboxyhemoglobin 2.0 H, Total Hemoglobin 14.5, FiO2 % 21.0 ACTIVITY: UP WITH ASSIST AND WALKER CONTINUE SAME THERAPY ORDERS DIET: REGULAR WITH BOOST SUPPLEMENT 1000 AM AND 1400 ASSURE HE DRINKS AT LEAST 64 OUNCES DAILY HOSPITAL COURSE: 85 year old white male hospitalized because of dehydration and worsening of chronic bronchitis symptoms. The patient was given IV steroids and IV fluids. The patient's condition has improved. Creatinine on discharge is still pending but on admission was 1 with BUN of 27. pO2 61 with saturation of 93% on room air. The patient is feeling a lot better. The patient's hydration status on physical exam has improved. He wants to go back [place] the [place] [facility] start rehab. He was discharged from [facility] recently after being treated with COVID related symptoms. 03/02/2021 he was admitted to [facility], went back to the [place] [facility] and then was hospitalized here because at the [place] [facility] he was noted to have weakness and was restless that morning. CONDITION: Stable TIME SPENT: More than 60 minutes. DONN
[2021-03-14] MEDS ORDERED: LEVAQUIN PO SCH (10:00)
[2021-03-14] MEDS: SYMBICORT 160-4.5 MCG INHALER IH SCH (10:03)
--- NOTE | 2021-03-14 11:30 | CM.DICTOOL ---
ADMISSION: 03/13/21 14:02 DISCHARGE: February DATE OF SERVICE: 03/14/21 FINAL DIAGNOSIS DEHYDRATION, RESOLVED CHRONIC LUNG DISEASE WITH CHRONIC BRONCHITIS HISTORY OF COVID PNEUMONIA RECENT 2 WEEKS AGO, RECOVERED CORONARY ARTERY DISEASE INFLUENZA B CAD DYSLIPIDEMIA COPD HYPERTENSION BPH RLS MYELODYSPLASTIC SYNDROME (DR. LEYVA) LV DYSFUNCTION GERD OSTEOARTHRITIS BILATERAL CATARACTS PREVIOUS SMOKER CABG, 1988, 2000 RIGHT INGUINAL HERNIA REPAIR ANGIOPLASTY LAST VITALS Temp Pulse Resp BP Pulse Ox 98.1 F 60 18 114/58 L 95 03/14/21 05:44 03/14/21 05:44 03/14/21 05:44 03/14/21 05:44 03/14/21 05:44 TAKE THESE MEDICATIONS AT HOME Amlodipine Besylate (Amlodipine Besylate 5 Mg Tablet) 10 mg PO DAILY ZOË Apixaban (Apixaban 5 Mg Tab) 2.5 mg PO BID ZOË X 10 MORE DAYS THEN STOP Last Admin: 03/13/21 20:56 Dose: 2.5 mg ASA 81 MG PO DAILY AFTER ELIQUIS IS COMPLETED Bisacodyl (Bisacodyl 10 Mg Supp.Rect) 10 mg RC DAILY PRN PRN Reason: Constipation Budesonide/Formoterol Fumarate (Budesonide/Formoterol Fumarate 160/4.5 Mcg Inhaler) 2 puff IH BID [facility] Last Admin: 03/13/21 20:56 Dose: 2 puff Donepezil HCl (Donepezil Hcl 10 Mg Tablet) 10 mg PO BEDTIME [facility] Last Admin: 03/13/21 20:55 Dose: 10 mg Doxazosin Mesylate (Doxazosin Mesylate 2 Mg Tablet) 4 mg PO DAILY [facility] Furosemide (Furosemide 40 Mg Tablet) 20 mg PO QDAC [facility] Last Admin: 03/14/21 05:53 Dose: 20 mg Lorazepam (Lorazepam 1 Mg Tablet) 1 mg PO TID PRN PRN Reason: Anxiety Last Admin: 03/13/21 22:51 Dose: 1 mg Memantine (Memantine Hcl 10 Mg Tablet) 10 mg PO DAILY [facility] Melatonin 5 mg PO BEDTIME [facility] Last Admin: 03/13/21 20:57 Dose: Not Given Potassium Chloride (Potassium Chloride 20 Meq Tab) 20 meq PO DAILYWM [facility] Pramipexole Dihydrochloride (Pramipexole Di-Hcl 1 Mg Tablet) 1 mg PO TID [facility] Last Admin: 03/13/21 20:55 Dose: 1 mg Pravastatin Sodium (Pravastatin Sodium 40 Mg Tablet) 40 mg PO BEDTIME Z[facility] Last Admin: 03/13/21 20:55 Dose: 40 MG PREDNISONE 10 MG PO DAILY X 10 DAYS WITH FOOD LEVAQUIN 250 MG PO DAILY X 5 DAYS ALLERGIES No Known Allergies Allergy (Verified 03/13/21 09:10) DISCONTINUED MEDICATIONS MOBIC NEW PRESCRIPTIONS: ELIQUIS 2.5 PO BID X 10 DAYS ASA 81 MG PO DAILY AFTER ELIQUIS IS COMPLETED PREDNISONE 10 MG PO DAILY X 10 DAYS WITH FOOD LEVAQUIN 250 MG PO DAILY X 5 DAYS SMOKING: N/A DISEASE SPECIFIC EDUCATION: DEHYDRATION CHRONIC BRONCHITIS BLEEDING PRECAUTIONS FALL PRECAUTIONS COVID MEDICATION CHANGES LAB REVIEW: 03/14/21 07:23 03/14/21 07:23 03/14/21 07:23: Sodium 132.8 L, Potassium 3.80, Chloride 103.7, Carbon Dioxide 24.0, Anion Gap 8.90, BUN 22.6 H, Creatinine 0.78, Estimated GFR (MDRD) 95.00, BUN/Creatinine Ratio 28.97, Glucose 183.2 H D, Calcium 8.04 L, Total Bilirubin 0.77, AST 21.0, ALT 16.5, Alkaline Phosphatase 73.1, Total Protein 6.03 L, Al bumin 2.93 L, Globulin 3.10, Albumin/Globulin Ratio 0.94 03/14/21 07:23: WBC 3.63 L, RBC 3.65 L, Hgb 12.7 L, Hct 36.3 L, MCV 99.5 H, MCH 34.8 H, MCHC 35.0, RDW Coeff of José 11.9, Plt Count 120 L, Immature Gran % ( Auto) 0.3, Neut % (Auto) 90.0 H, Lymph % (Auto) 7.2 L, [place] % (Auto) 2.2, Eos % (Auto) 0.0, Baso % (Auto) 0.3, Neut # (Auto) 3.3, Lymph # (Auto) 0.3 L, [place] # (Auto) 0.1 L, Eos # (Auto) 0.0, Baso # (Auto) 0.0, Immature Gran # (Auto) 0.0 03/13/21 12:07: Urine Color Yellow, Urine Clarity Clear, Urine pH 7.0, Ur Specific [place] 1.015, Urine Protein 1+ H, Urine Glucose (UA) Negative, Urine Ketones Negative, Urine Blood Negative, Urine Nitrite Negative, Urine Bilirubin Negative, Urine Urobilinogen 2.0 H, Ur Leukocyte Esterase Negative, Urine Microscopic RBC 0-2, Urine Microscopic WBC 0-2, Ur Squamous Epith Cells Not present, Urine Bacteria Trace, Urine Mucus Trace 03/13/21 11:18: Adenovirus (PCR) Not detected, B. pertussis DNA (PCR) Not detected, B.parapertussis DNA PCR Not detected, C. pneumoniae DNA (PCR) Not detected, Coronavirus OC43 (PCR) Not detected, Coronavirus HKU1 (PCR) Not detected, Coronavirus 229E (PCR) Not detected, Coronavirus NL63 (PCR) Not detected, Human Metapneumovir PCR Not detected, Influenza B (RT-PCR) Not detected, M. pneumoniae (PCR) Not detected, Parainfluenza 1 (PCR) Not detected, Parainfluenza 2 (PCR) Not detected, Parainfluenza 3 (PCR) Not detected, Parainfl uenza 4 (PCR) Not detected, RSV (PCR) Not detected, Entero/Rhino (PCR) Not detected, SARS-CoV-2 (PCR) Detected H 03/13/21 10:13: RSV Antigen Negative by naat 03/13/21 09:51: Lactic Acid 1.01 03/13/21 09:51: Sodium 133.8 L, Potassium 3.82, Chloride 97.7 L, Carbon Dioxide 29.5, Anion Gap 10.42, BUN 27.3 H, Creatinine 1.09, Estimated GFR (MDRD) 65.00, BUN/Creatinine Ratio 25.04, Glucose 98.2, Uric Acid 4.02, Calcium 8.36 L, Magnesium 2.20, Total Bilirubin 0.95, AST 24.7, ALT 17.6, Alkaline Phosphatase 89.1, Total Creatine Kinase 25.6 L, Troponin I 0.017, Total Protein 6.88, Albumin 3.56, Globulin 3.32, Albumin/Globulin Ratio 1.07 03/13/21 09:51: WBC 7.26, RBC 4.18 L, Hgb 14.4, Hct 41.8 L, MCV 100.0 H, MCH 34.4 H, MCHC 34.4, RDW Coeff of José 12.3, Plt Count 139 L, Immature Gran % (Auto) 0.6, Neut % (Auto) 78.7 H, Lymph % (Auto) 9.4 L, [place] % (Auto) 10.9 H, Eos % (Auto) 0.3, Baso % (Auto) 0.1, Neut # (Auto) 5.7, Lymph # (Auto) 0.7, [place] # (Auto) 0.8, Eos # (Auto) 0.0, Baso # (Auto) 0.0, Immature Gran # (Auto) 0.0, ESR 62 H 03/13/21 09:45: Puncture Site R brach, Base Excess 4.9 H, O2 Saturation 93.7 L, ABG pH 7.53 H*, ABG pCO2 33.0 L, ABG pO2 61.0 L, ABG HCO3 27.6, ABG Total CO2 28.6 H, Moises Test Y, Hemoglobin 1.8 H, Oxyhemoglobin 90.4 L, Carboxyhemoglobin 2.0 H, Total Hemoglobin 14.5, FiO2 % 21.0 PLAN: DISCHARGE: RETURN TO [facility] ACTIVITY: UP WITH ASSIST AND WALKER CONTINUE SAME THERAPY ORDERS DIET: REGULAR WITH BOOST SUPPLEMENT 1000 AM AND 1400 ASSURE HE DRINKS AT LEAST 64 [place] DAILY MD FOLLOW UP: TO SEE DR. ACUÑA/JACY DAMICO APRN/ ABDIEL CARDOSO APRN IN THE OFFICE ON MARCH 25, 2021 @ 1:OO PM CONTINUE SAME FACILITY ORDERS PRIOR TO HOSPITALIZATION OXYGEN: 2 L/M PER N/C TO KEEP OXYGEN 90% OR ABOVE CODE STATUS: DO NOT RESUSCITATE MR SORENSON IS ALERT AND ORIENTED X 4 WITH FORGETFULNESS. LUNG SOUNDS DIMINISHED AND HAVING OCCASIONAL COUGH WITH SMALL AMOUNTS OF CLEAR TO WHITE SPUTUM. HE IS UP WITH SBA OF ONE AND RWX. SKIN WARM AND DRY AND INTACT. HI DOES HAVE SOME DRIBBLING OF URINE AND AT TIMES INCONTINENT OF BOWELS. LAST BM 03/13. HE HAS FAIR NUTRITIONAL AND FAIR FLUID INTAKE NOW, HE WAS NOT DRINKING ENOUGH AT [facility]. HE IS TO RETURN THERE FOR THERAPY AFTER HIS COVID PNEUMONIA EPISODE. MD JACY SOTO APRN ALYCE HANNAN, APRN
--- NOTE | 2021-03-19 10:53 | PN ---
DATE OF SERVICE: 03/13/2021 SUBJECTIVE: The patient was hospitalized through the emergency room. He was seen in the room. He was hospitalized because of weakness. He wants to go back and start the rehab so that he can go home from there. The patient's cardiovascular and respiratory status is stable. His Po2 is 61 with oxygen saturation more than 90% on room air. He has mild wheezing. Decreased breath sounds. We will give steroids, IV fluids and send him back to the shelter tomorrow. TIME SPENT: More than 30 minutes. Plan and coordination of the patient's care discussed in the presence of nurse. DONN
== END 2021-03-14 12:56 | DRG 177 ==
LOC: ED 08:55 → MEDSURG B 14:02
PROVIDERS: ADMIT Internal Medicine; ATTEND Internal Medicine
DX: I10 Essential (primary) hypertension; I25.10 Atherosclerotic heart disease of native coronary artery without angina pectoris; J96.90 Respiratory failure, unspecified, unspecified whether with hypoxia or hypercapnia; K21.9 Gastro-esophageal reflux disease without esophagitis; U07.1 COVID-19; Z86.16 Personal history of COVID-19; D46.9 Myelodysplastic syndrome, unspecified; E86.0 Dehydration; J42 Unspecified chronic bronchitis; R53.1 Weakness; M19.90 Unspecified osteoarthritis, unspecified site; E78.5 Hyperlipidemia, unspecified; J44.9 Chronic obstructive pulmonary disease, unspecified; R06.02 Shortness of breath

== ENCOUNTER 2023-04-24 09:08 | Observation (INO) ==
[2023-04-24 09:54] LABS: BASOPHILS % (AUTO) 0.4 % (0.0-3.0); EOSINOPHILS % (AUTO) 1.5 % (0.0-7.0); HEMATOCRIT 33.2 % (42.0-52.0); IMMATURE GRANULOCYTE % (AUTO) 0.4 % (0.0-5.0); LYMPHOCYTES # (AUTO) 0.7 K/uL (0.60-3.4); LYMPHOCYTES % (AUTO) 24.4 (10.0-50.0); MEAN CORPUSCULAR HEMOGLOBIN 35.9 pg (27.0-31.0); MEAN CORPUSCULAR HGB CONC 33.1 (31.8-35.4); MEAN CORPUSCULAR VOLUME 108.5 fl (80.0-94.0); MONOCYTES # (AUTO) 0.4 K/uL (0.4-2.0); MONOCYTES % (AUTO) 13.1 (0-10); NEUTROPHILS # (AUTO) 1.7 K/ul (2.0-6.9); NEUTROPHILS % (AUTO) 60.2 % (42.2-75.2); PLATELET COUNT 86 10^3/uL (140-440); RED BLOOD COUNT 3.06 10^6/ul (4.70-6.10); WHITE BLOOD COUNT 2.75 K/ul (4.2-10.2)
[2023-04-24 10:05] LABS: ALANINE AMINOTRANSFERASE 18.8 U/L (0-50); ALBUMIN 3.7 g/dL (3.5-5.0); ALKALINE PHOSPHATASE 111.1 U/L (56-119); ASPARTATE AMINO TRANSFERASE 41.4 U/L (17-59); BILIRUBIN,TOTAL 0.74 mg/dL (0.2-1.3); BLOOD UREA NITROGEN 27.6 mg/dL (9-20); CALCIUM 8.24 mg/dL (8.4-10.2); CHLORIDE 100.5 mmol/L (98-107); CREATININE 1.23 mg/dL (0.60-1.10); GLUCOSE 99.4 mg/dL (74-106); POTASSIUM 3.33 mmol/L (3.5-5.1); SODIUM 137.3 mmol/L (134.5-145); TOTAL PROTEIN 6.89 g/dL (6.3-8.2)
[2023-04-24 10:10] LABS: SARS COV-2 RNA RAPID NAAT POSITIVE (NEGATIVE)
[2023-04-24 10:17] LABS: MOLECULAR FLU A NEGATIVE BY NAAT (NEGATIVE); MOLECULAR FLU B NEGATIVE BY NAAT (NEGATIVE); RSV MOLECULAR NEGATIVE BY NAAT (NEGATIVE)
[2023-04-24] MEDS ORDERED: DECADRON IVP ONE (10:36)
--- NOTE | 2023-04-24 10:59 | CT ---
EXAM: CTA CHEST FOR PE HISTORY: Cough with hypotension COMPARISON: CT chest 09/30/2021 TECHNIQUE: CTA of the chest was performed from the lung apices to the upper abdomen after 100 ml of Omnipaque IV contrast was administered using PE protocol. 3-D imaging was also provided. FINDINGS: There is no filling defect in the pulmonary arteries to the level of the subsegmental pulm onary arteries. The heart demonstrates no ventricular strain. Thyroid is normal. The aorta is unre markable with atherosclerotic disease. Sternotomy wires are present with prior CABG. The heart is e nlarged without pericardial fluid. There is no pneumothorax. Small left effusion is present. There is minimal dependent atelectasis mo st pronounced on the left. There is mild emphysema. There is minimal small airways thickening. The re is atelectasis in the lingula. The central airways are patent. Limited views of the soft tissues in the upper abdomen demonstrate low attenuation left renal cyst. There is degenerative disease. IMPRESSION: 1. Small left effusion with adjacent atelectasis. There is minimal dependent small airways thickeni ng that may represent a component of reactive airways changes. 2. Mild emphysema. 3. Heart is enlarged with changes of prior CABG. All CT scans are performed using dose optimization techniques as appropriate to the performed exam an d include at least one of the following: Automated exposure control, adjustment of the mA and/or kV according t o size, and the use of iterative reconstruction technique.
--- NOTE | 2023-04-24 11:27 | ED.PDOC ---
General ED Provider: Dr. CLEVELAND GUEVARA DO Chief Complaint: Non-specific Complaint Stated Complaint: Patient is a 87 yo M here for sob and body aches for 3 days duration Patient arrives afebrile with hypoxia 90% Patient speaking in full sentences He deneis falls or injuries He also complains of body pains He is taking home medications as prescribed Denies pain No rashes or diarrhea, no abdominal pain Oxygen improved to 95% with 2 L nasal canula Time Seen by Provider: 04/24/23 09:21 Information Source: Patient Primary Care Provider: LIN ACUÑA MD Nursing and Triage Documentation Reviewed and Agree: Yes What is Opioid Naive?: *Opioid Naive implies the patient is not already taking opioids or not chronically receiving opioids on a daily basis. *PRN dosing is not "usually" associated with tolerance. *Patients are at higher risk of over-sedation and aspiration. What is Opioid Tolerant?: *Opioid Tolerance implies less than the expected response to an opioid. *Acquired tolerance is defined by the patient taking 60mg of oral morphine daily (or equianalgesic dose of another opioid) for 1 week or more. *Often associated with chronic pain. *May take more than usual dose to achieve desired pain control. Review of Systems Review Of Systems Constitutional: Denies Chills or Fever Eyes: Denies Blindness or Inflammation Ears, Nose, Mouth, Throat: Denies Ear pain or Nose pain Respiratory: Reports Cough and Shortness of Breath; Denies Wheezing Cardiac: Denies Chest pain, Palpitations or Syncope GI: Denies Constipated or Diarrhea : Denies Burning or Discharge Musculoskeletal: Denies Back pain or Joint pain Skin: Denies Bruising or Rash Neurological: Denies Anxiety, Headache or Numbness Endocrine: Reports No symptoms Hematologic/Lymphatic: Reports No symptoms All Other Systems: Reviewed and Negative [facility] Medical History Pulmonary nodule R91.1 - Solitary pulmonary nodule (ICD-10) Cardiac disease I51.9 - Heart disease, unspecified (ICD-10) Arthritis M19.90 - Unspecified osteoarthritis, unspecified site (ICD-10) Oropharyngeal dysphagia R13.12 - DYSPHAGIA, OROPHARYNGEAL PHASE (ICD-10) Family History SISTER No problems noted. BROTHER Elevated cholesterol Social History Smoking and tobacco status: Former smoker How long ago did patient quit smokin OR 40 YEARS AGO Second hand smoke exposure: Yes Alcohol intake: never Substance use type: does not use Special bernardo needs: No Agree to transfusion: Yes Adopted: No Caregiver/support person: No Foster care: No Household members: none Housing: assisted living facility Lives independently: No Number of children: 1 service: No intermediate: No History of recent travel: No Do you think of yourself as: straight/heterosexual Current gender identity: male Seatbelt use: always Drives intoxicated or rides with intoxicated armored car driver: No Water heater temperature set < 120 degrees: Yes Working smoke detector in home: Yes Fire extinguisher in home: Yes Carbon monoxide detector in home: Yes Firearms in home: No Surgical History H/O right inguinal hernia repair Z98.890 - Other specified postprocedural states (ICD-10) Z87.19 - Personal history of other diseases of the digestive system (ICD-10) Cataracts, bilateral H26.9 - Unspecified cataract (ICD-10) 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 - Presence of aortocoronary bypass graft (ICD-10) Skin lesion L98.9 - Disorder of the skin and subcutaneous tissue, unspecified (ICD-10) Physical Exam Physical Exam Appearance: Reports Well-appearing and Well-nourished Ill-appearing: Not Applicable Pain Distress: Not Applicable Eyes: Reports DOLORES, EOMI and Conjunctiva clear ENT: Reports Ears normal, Nose normal and Oropharynx normal Neck: Supple Respiratory: Reports Airway patent, Breath sounds clear and Crackles; Denies Retractions Cardiovascular: Reports Pulses normal, Irregular rhythm and Other (HR 70 afib) GI/: Reports Soft and Nontender Musculoskeletal: Reports Normal strength, ROM intact and Other (Scoliosis present) Skin: Reports Warm and Dry Neurological: Reports Sensation intact and Motor intact Psychiatric: Reports Affect appropriate and Mood appropriate Interpretation EKG Interpretation EKG Interpretation By: ED Physician Time of EKG #1: 10:00 Interpretation: Afib no stemi rate 68 no brugada pattern Course Course 04/24/23 09:47 04/24/23 09:47 Orders, Labs, Meds: Lab Review 04/24/23 04/24/23 09:35 09:47 WBC 2.75 L RBC 3.06 L Hgb 11.0 L Hct 33.2 L MCV 108.5 H MCH 35.9 H MCHC 33.1 RDW Coeff of José 13.0 Plt Count 86 L Immature Gran % (Auto) 0.4 Neut % (Auto) 60.2 Lymph % (Auto) 24.4 [place] % (Auto) 13.1 H Eos % (Auto) 1.5 Baso % (Auto) 0.4 Neut # (Auto) 1.7 L Lymph # (Auto) 0.7 [place] # (Auto) 0.4 Eos # (Auto) 0.0 Baso # (Auto) 0.0 Immature Gran # (Auto) 0.0 Sodium 137.3 Potassium 3.33 L Chloride 100.5 Carbon Dioxide 33.0 H Anion Gap 7.13 BUN 27.6 H Creatinine 1.23 H Estimated GFR (MDRD) 56.00 BUN/Creatinine Ratio 22.43 Glucose 99.4 Lactic Acid 0.97 Calcium 8.24 L Total Bilirubin 0.74 AST 41.4 ALT 18.8 Alkaline Phosphatase 111.1 Troponin I 0.021 Total Protein 6.89 Albumin 3.70 Globulin 3.19 Albumin/Globulin Ratio 1.15 Influ A Molecular Assay Negative by naat Influ B Molecular Assay Negative by naat RSV Antigen Negative by naat SARS CoV-2 RNA Rapid ANNA Positive H Orders Category Date Time Status OBSERVATION [PLACE PATIENT OBSERVATION] .TO MEDSURG ADMISSION 04/24/23 11:27 Active (MONITORED BED) EKG-(ED ONLY) Stat CARDIO 04/24/23 09:39 Completed NPO REMINDER: IMAGING ONCE CARE 04/24/23 09:39 Completed TELEMETRY MONITORING TELE CARE 04/24/23 11:27 Active CBC W/ AUTO DIFF Stat LAB 04/24/23 09:47 Completed COMPREHENSIVE METABOLIC PANEL Stat LAB 04/24/23 09:47 Completed FLU A & B MOLECULAR [FLU A/B MOLECULAR] Stat LAB 04/24/23 09:35 Completed LACTIC ACID Stat LAB 04/24/23 09:47 Completed RSV Stat LAB 04/24/23 09:35 Completed SARS COV-2 RNA RAPID ANNA Stat LAB 04/24/23 09:35 Completed TROPONIN I Stat LAB 04/24/23 09:47 Completed Dexamethasone Sod Phosphate [Decadron] Meds 04/24/23 10:36 Discontinued 8 mg IVP ONCE ONE CTA CHEST PE PROTOCOL Stat RADS 04/24/23 09:39 Completed Medications Discontinued Medications Generic Name Dose Route Start Last Admin Trade Name Evi PRN Reason Stop Dose Admin Dexamethasone Sodium Phosphate 8 mg 04/24/23 10:36 04/24/23 10:41 Dexamethasone Sod Phos 10 Mg/Ml Inj IVP 04/24/23 10:37 8 mg ONCE ONE Administration Vital Signs: Temp Pulse Resp BP Pulse Ox 04/24/23 09:26 97.8 F 73 18 98/55 L 90 L MDM: Patient is a 87 yo M here for body aches and SOB Patient afebrile and hypoxic improved with 2 L NC Hx from patient chart review by me Exam concerning for cough and crackles 3+ labs and 2 image studies reviewed by me Consults to Dr. Amira Acuña and Hospitalist Sal WDX: Covid 19, acute hypoxic respiratory failure, cough, discomfort acute high complexity DDX: I considered PE, Stemi, empyema but these are less likely SDOH: Patient will have best chance to improve with inpatient and consideration of remdesivir therapy Decadron given here Patient placed on observation Discharge Plan Discharge Patient Disposition: PLACED OBSERVATION Discharge Problem: COVID-19, Acute hypoxic respiratory failure, Leukopenia, Pleural effusion Did you review [place] [employer] DESIGNER for ALL controlled substances?: Not Applicable ED Provider: CLEVELAND GUEVARA Condition: Stable Physician Progress Note: []
[2023-04-24 12:15] VITALS: BMI 22.7
[2023-04-24] MEDS ORDERED: TYLENOL PO PRN (12:23)
[2023-04-24] MEDS ORDERED: ZOFRAN 4 MG/2 ML IVP PRN (12:23)
--- NOTE | 2023-04-24 12:26 | PCM ---
Date of Service Date Seen by Provider: 04/24/23 Time Seen by Provider: 12 Admit Day/Time Admission Date: 04/24/23 Admission Time: 11:27 Reason for Admission Chief Complaint: ACUTE HYPOXIC RESPIRATORY FAILURE SECONDARY TO Hospital Provider Hospital Provider: DUSTIN MÁRQUEZ PA-C, [facility] Primary Care Physician Primary Care Physician: LIN ACUÑA MD History of Present Illness History of Present Illness: Patient is a 87 year old male from [facility] assisted living with pmhx of a fib, MDS, dementia, GERD, COPD, chronic anemia, hyperlipidemia, CKD who presented to ER with 3 day history of runny eyes and nose. He's had a cough and worsening SOB. He does not wear O2 at baseline. He states he's had to use his cane more from feeling weak. He also had some diarrhea but this has since res olved. He thinks he may have had covid vaccine in the past but he's unsure. He denies chest pain. In the ER he was found to have an O2 of 90%. CTA negative for acute findings. He was placed on 2L with improvement to 95%. He was given dexamethasone. Discussed with patient risks vs benefits of remdesivir, and he would like to proceed. Case Discussed With Case Discussed With: Patient's case was discussed with the ER Physicians, Dr. Calderon. [facility] Medical History Pulmonary nodule R91.1 - Solitary pulmonary nodule (ICD-10) Cardiac disease I51.9 - Heart disease, unspecified (ICD-10) Arthritis M19.90 - Unspecified osteoarthritis, unspecified site (ICD-10) Oropharyngeal dysphagia R13.12 - DYSPHAGIA, OROPHARYNGEAL PHASE (ICD-10) Surgical History H/O right inguinal hernia repair Z98.890 - Other specified postprocedural states (ICD-10) Z87.19 - Personal history of other diseases of the digestive system (ICD-10) Cataracts, bilateral H26.9 - Unspecified cataract (ICD-10) Hx of CABG 1988,2000 Z95.1 - Presence of aortocoronary bypass graft (ICD-10) Skin lesion under left eye - removed L98.9 - Disorder of the skin and subcutaneous tissue, unspecified (ICD-10) Family History SISTER No problems noted. BROTHER Elevated cholesterol Social History Smoking and tobacco status: Former smoker How long ago did patient quit smokin OR 40 YEARS AGO Second hand smoke exposure: Yes Alcohol intake: never Substance use type: does not use Special bernardo needs: No Agree to transfusion: Yes Adopted: No Caregiver/support person: No Foster care: No Household members: none Housing: assisted living facility Lives independently: No Number of children: 1 service: No alf: No History of recent travel: No Do you think of yourself as: straight/heterosexual Current gender identity: male Seatbelt use: always Drives intoxicated or rides with intoxicated lead driver: No Water heater temperature set < 120 degrees: Yes Working smoke detector in home: Yes Fire extinguisher in home: Yes Carbon monoxide detector in home: Yes Firearms in home: No Allergies Allergies Allergy/AdvReac Type Severity Reaction Status Date / Time No Known Allergies Allergy Verified 04/24/23 09:21 Current Medications Home Medications donepezil 10 mg tablet (Aricept) 10 mg PO BEDTIME #90 tabs 08/21/22 [Rx Confirmed 04/24/23 Last Taken Unknown] memantine 10 mg tablet 10 mg PO BID 08/21/22 [History Confirmed 04/24/23 Last Taken Unknown] potassium chloride 20 mEq tablet,extended release(part/cryst) (Klor-Con M) 20 meq PO QDAY #90 tabs 09/07/22 [Rx Confirmed 04/24/23 Last Taken Unknown] aspirin 81 mg tablet,delayed release (Adult Low Dose Aspirin) 81 mg PO QDAY 10/02/22 [History Confirmed 04/24/23 Last Taken Unknown] pramipexole 1.5 mg tablet 1.5 mg PO .BEDTIME #90 tabs 01/25/23 [Rx Confirmed 04/24/23 Last Taken Unknown] carvedilol 3.125 mg tablet 3.125 mg PO BID 02/03/23 [History Confirmed 04/24/23 Last Taken Unknown] furosemide 40 mg tablet 40 mg PO QDAY 02/03/23 [History Confirmed 04/24/23 Last Taken Unknown] pantoprazole 40 mg tablet,delayed release See Rx Instructions .Route .COMPLEX #90 tabs 03/22/23 [Rx Confirmed 04/24/23 Last Taken Unknown] doxazosin 8 mg tablet 8 mg PO DAILY #90 tabs 04/08/23 [Rx Confirmed 04/24/23 Last Taken Unknown] diclofenac sodium 1 % topical gel 2 g topical QID #100 grams 04/12/23 [Rx Confirmed 04/24/23 Last Taken Unknown] hydrocortisone 2.5 % topical ointment 1 applic topical BID #20 grams 04/12/23 [Rx Confirmed 04/24/23 Last Taken Unknown] pravastatin 40 mg tablet 40 mg PO BEDTIME #90 tabs 04/12/23 [Rx Confirmed 04/24/23 Last Taken Unknown] Home Acetaminophen (Acetaminophen 325 Mg Tablet) 650 mg PO Q4H PRN PRN Reason: Mild Pain Dexamethasone Sodium Phosphate (Dexamethasone Sod Phos 10 Mg/Ml Inj) 6 mg IVP DAILY COUNT INCLUDES THE [facility] Enoxaparin Sodium (Enoxaparin Sodium 40 Mg/0.4 Ml Syr) 40 mg SUBCUT DAILY COUNT INCLUDES THE [facility] Remdesivir 100 mg/ Sodium (Chloride) 100 mls @ 200 mls/hr IV DAILY COUNT INCLUDES THE [facility] Stop: 04/28/23 09:29 Ondansetron HCl (Ondansetron Hcl/Pf 4 Mg/2 Ml Sdv) 4 mg IVP Q6H PRN PRN Reason: Nausea / Vomiting Discontinued Medications Dexamethasone Sodium Phosphate (Dexamethasone Sod Phos 10 Mg/Ml Inj) 8 mg IVP ONCE ONE Stop: 04/24/23 10:37 Last Admin: 04/24/23 10:41 Dose: 8 mg Remdesivir 200 mg/ Sodium (Chloride) 250 mls @ 250 mls/hr IV ONCE ONE Stop: 04/24/23 13:29 Last Admin: 04/24/23 13:42 Dose: 250 mls/hr Opioid Naive vs. Tolerant Does Patient Take Opioids?: No Is Patient Opioid Naive?: Yes What is Opioid Naive?: *Opioid Naive implies the patient is not already taking opioids or not chronically receiving opioids on a daily basis. *PRN dosing is not "usually" associated with tolerance. *Patients are at higher risk of over-sedation and aspiration. Is Patient Opioid Tolerant?: No What is Opioid Tolerant?: *Opioid Tolerance implies less than the expected response to an opioid. *Acquired tolerance is defined by the patient taking 60mg of oral morphine daily (or equianalgesic dose of another opioid) for 1 week or more. *Often associated with chronic pain. *May take more than usual dose to achieve desired pain control. Review of Systems Constitutional: Reports Fatigue and Weakness Head: Reports Normocephalic and Atraumatic Eyes: Reports Other (+watery ) Nose: Reports Discharge Throat: Denies Sore Throat Cardiovascular: Reports Edema (+chronic, baseline ); Denies Chest pain or Chest Pressure Respiratory: Reports Cough and Shortness of air Gastrointestinal: Reports Diarrhea (resolved ); Denies Nausea, Vomiting, Abdomin al pain or Melena Genitourinary: Reports Frequency; Denies Dysuria Dermatologic: Denies Rashes Neurological: Reports Weakness and Problems with walking; Denies Headache Physical examination Most Recent Vital Signs: Most Recent Vital Signs Temperature 98 F 04/24/23 12:09 Temperature Source Oral 04/24/23 12:09 Temperature Source Oral 04/24/23 09:26 Pulse Rate 75 04/24/23 12:09 Respiratory Rate 18 04/24/23 12:09 Blood Pressure 98/55 L 04/24/23 09:26 Blood Pressure Left Arm 134/76 04/24/23 12:09 Blood Pressure Position Supine 04/24/23 12:09 O2 Sat by Pulse Oximetry 100 04/24/23 12:09 Oxygen Delivery Method Nasal Cannula 04/24/23 12:09 Oxygen Flow Rate 2 04/24/23 12:09 Height 5 ft 11 in 04/24/23 12:09 Weight 163 lb 4 oz 04/24/23 12:09 Telemetry Heart Rate 68 03/14/21 01:00 Telemetry SPO2 90 L 08/05/16 01:00 Appearance: Positive No Apparent Distress and Alert and Oriented x3 Skin: Positive [place], Warm and Good Turgor; Negative Rashes HEENT: Positive Normocephalic and Atraumatic Neck: Positive Supple and Midline Trachea Chest/Lungs: Positive Clear to Auscultation Bilaterally; Negative Rales, Rhonci or Wheezes Heart: Positive Irregular Rhythm GI/: Positive Soft, Nontender, Bowel Sounds Normal and No Distention Extremities: Positive Edema (2+ pitting edema ketty lower ext, chronic/baseline per patient ) Neurological: Positive Cranial Nerves Intact, Alert and Other (+generalized weakness ) Psychiatric: Positive Oriented x4, Appropriate Mood and Appropriate Affect Labs This Visit Labs This Visit: Labs This Visit 04/24/23 04/24/23 09:35 09:47 WBC 2.75 L RBC 3.06 L Hgb 11.0 L Hct 33.2 L MCV 108.5 H MCH 35.9 H MCHC 33.1 RDW Coeff of José 13.0 Plt Count 86 L Immature Gran % (Auto) 0.4 Neut % (Auto) 60.2 Lymph % (Auto) 24.4 [place] % (Auto) 13.1 H Eos % (Auto) 1.5 Baso % (Auto) 0.4 Neut # (Auto) 1.7 L Lymph # (Auto) 0.7 [place] # (Auto) 0.4 Eos # (Auto) 0.0 Baso # (Auto) 0.0 Immature Gran # (Auto) 0.0 Sodium 137.3 Potassium 3.33 L Chloride 100.5 Carbon Dioxide 33.0 H Anion Gap 7.13 BUN 27.6 H Creatinine 1.23 H Estimated GFR (MDRD) 56.00 BUN/Creatinine Ratio 22.43 Glucose 99.4 Lactic Acid 0.97 Calcium 8.24 L Total Bilirubin 0.74 AST 41.4 ALT 18.8 Alkaline Phosphatase 111.1 Troponin I 0.021 Total Protein 6.89 Albumin 3.70 Globulin 3.19 Albumin/Globulin Ratio 1.15 Influ A Molecular Assay Negative by naat Influ B Molecular Assay Negative by naat RSV Antigen Negative by naat SARS CoV-2 RNA Rapid ANNA Positive H Imaging Imaging: EXAM: CTA CHEST FOR PE HISTORY: Cough with hypotension COMPARISON: CT chest 09/30/2021 TECHNIQUE: CTA of the chest was performed from the lung apices to the upper abdomen after 100 ml of Omnipaque IV contrast was administered using PE protocol. 3-D imaging was also provided. FINDINGS: There is no filling defect in the pulmonary arteries to the level of the subsegmental pulmonary arteries. The heart demonstrates no ventricular strain. Thyroid is normal. The aorta is unremarkable with atherosclerotic disease. Sternotomy wires are present with prior CABG. The heart is enlarged without pericardial fluid. There is no pneumothorax. Small left effusion is present. There is minimal dependent atelectasis most pronounced on the left. There is mild emphysema. There is minimal small airways thickening. There is atelectasis in the lingula. The central airways are patent. Limited views of the soft tissues in the upper abdomen demonstrate low attenuation left renal cyst. There is degenerative disease. IMPRESSION: 1. Small left effusion with adjacent atelectasis. There is minimal dependent small airways thickening that may represent a component of reactive airways changes. 2. Mild emphysema. 3. Heart is enlarged with changes of prior CABG. Review Statement Review Statement: I have independently reviewed and interpreted the labs/EKGs/imaging that were ordered by the ER provider. I have reviewed all outside records that are availab le currently in our EMR including imaging/notes/labs from previous visits. Plan Plan: 1. Acute hypoxic respiratory failure in setting of covid 19 - RT consult, wean O2 when able. 2. Covid 19 - CTA negative for acute findings. Duonebs prn. Dexamethasone daily (day1) and remdesivir (day 1). Covid isolation. 3. A fib, rate controlled - Cont home meds. Pt stopped xarelto, documented in pcp note. 4. BPH - Cont home meds 5. Dementia - Cont home meds 6. GERD - Cont home meds 7. Hyperlipidemia - Cont home meds 8. Heart failure with mildly reduced EF - cont lasix. Last echo 06/2021 showed reduced EF of 44% DVT Prophylaxis: Lovenox Time Spent: Greater than 80 minutes spent with patient, 50% of the time spent with this patient was devoted to counseling and coordination of care. [facility] minutes spent discussing advance care planning. DNR Admit to: Obs Discussed Plan of Care with Dr. Bobo Acuña. Medications Medication Orders: Medications Ordered Category Date Time Status Acetaminophen [Tylenol] Meds 04/24/23 12:23 Ordered 650 mg PO Q4H PRN Enoxaparin Sodium [Lovenox] Meds 04/25/23 09:00 Ordered 40 mg SUBCUT DAILY Ondansetron HCl/Pf [Zofran 4 mg/2 ml] Meds 04/24/23 12:23 Ordered 4 mg IVP Q6H PRN Remdesivir [Veklury] 100 mg Meds 04/25/23 09:00 Active 0.9 % Sodium Chloride [Sodium Chloride 100Ml] 100 ml IV DAILY Remdesivir [Veklury] 200 mg Meds 04/24/23 12:30 Active 0.9 % Sodium Chloride [Sodium Chloride] 250 ml IV ONCE
[2023-04-24] MEDS ORDERED: VEKLURY 200 MG in SODIUM CHLORIDE 250 ML IV ONE (12:30)
[2023-04-24 12:42] LABS: PROTHROMBIN TIME 10.7 SEC (9.3-11.0)
[2023-04-24] MEDS ORDERED: K-DUR PO ONE (19:21)
[2023-04-24] MEDS: MIRAPEX PO SCH ×2 (20:17)
[2023-04-24] MEDS: PRAVACHOL PO SCH (20:17)
[2023-04-24] MEDS: NAMENDA PO SCH (20:17)
[2023-04-24] MEDS: COREG PO SCH (20:18)
[2023-04-24] MEDS: ARICEPT PO SCH (20:18)
[2023-04-24 21:23] LABS: BILIRUBIN,URINE Negative (NEGATIVE); CLARITY,URINE Clear (CLEAR); COLOR,URINE Yellow (YELLOW); GLUCOSE, URINE (UA) Trace (NEGATIVE); KETONES,URINE Negative (NEGATIVE); LEUKOCYTE ESTERASE ,URINE Negative (NEGATIVE); NITRITE,URINE Negative (NEGATIVE); PH,URINE 5.5 (5-9); PROTEIN,URINE 2+ (NEGATIVE); URINE, BLOOD Negative (NEGATIVE)
[2023-04-24 21:25] LABS: SQUAMOUS EPITHELIAL CELL,UR 0-2 (0-5)
[2023-04-24 21:26] LABS: MUCUS,URINE TRACE (NOT PRESENT)
[2023-04-25 06:03] LABS: HEMATOCRIT 31.9 % (42.0-52.0); HEMOGLOBIN 10.7 g/dl (14.0-18.0); IMMATURE GRANULOCYTE % (AUTO) 0.4 % (0.0-5.0); LYMPHOCYTES # (AUTO) 0.4 K/uL (0.60-3.4); LYMPHOCYTES % (AUTO) 17.6 (10.0-50.0); MEAN CORPUSCULAR HEMOGLOBIN 36.1 pg (27.0-31.0); MEAN CORPUSCULAR HGB CONC 33.5 (31.8-35.4); MEAN CORPUSCULAR VOLUME 107.8 fl (80.0-94.0); MONOCYTES # (AUTO) 0.2 K/uL (0.4-2.0); MONOCYTES % (AUTO) 9.9 (0-10); NEUTROPHILS # (AUTO) 1.7 K/ul (2.0-6.9); NEUTROPHILS % (AUTO) 72.1 % (42.2-75.2); PLATELET COUNT 73 10^3/uL (140-440); RDW COEFFICIENT OF VARIATION 12.6 % (11.6-14.8); RED BLOOD COUNT 2.96 10^6/ul (4.70-6.10); WHITE BLOOD COUNT 2.33 K/ul (4.2-10.2)
[2023-04-25 06:15] LABS: ALANINE AMINOTRANSFERASE 21.5 U/L (0-50); ALBUMIN 3.25 g/dL (3.5-5.0); ALKALINE PHOSPHATASE 111.1 U/L (56-119); ASPARTATE AMINO TRANSFERASE 42.5 U/L (17-59); BILIRUBIN,TOTAL 0.48 mg/dL (0.2-1.3); CALCIUM 8.01 mg/dL (8.4-10.2); CARBON DIOXIDE 31.2 mmol/L (22-30.0); CHLORIDE 105.8 mmol/L (98-107); CREATININE 0.91 mg/dL (0.60-1.10); GLUCOSE 114.3 mg/dL (74-106); POTASSIUM 4.16 mmol/L (3.5-5.1); TOTAL PROTEIN 6.22 g/dL (6.3-8.2)
[2023-04-25 06:32] LABS: PROTHROMBIN TIME 11.3 SEC (9.3-11.0)
[2023-04-25] MEDS: ASPIRIN EC PO SCH (09:08)
[2023-04-25] MEDS: CARDURA PO SCH (09:08)
[2023-04-25] MEDS: MUCINEX PO SCH ×2 (09:08→20:08)
[2023-04-25] MEDS: K-DUR PO SCH (09:08)
[2023-04-25] MEDS: DECADRON IVP SCH (09:09)
[2023-04-25] MEDS: LOVENOX SUBCUT SCH (09:09)
[2023-04-25] MEDS: NAMENDA PO SCH ×2 (09:09→20:08)
[2023-04-25] MEDS: VEKLURY 100 MG in SODIUM CHLORIDE 100ML 100 ML IV SCH (09:10)
[2023-04-25] MEDS: PROTONIX PO SCH (09:12)
[2023-04-25] MEDS: COREG PO SCH ×2 (09:12→17:41)
[2023-04-25] MEDS: LASIX TAB PO SCH (09:12)
--- NOTE | 2023-04-25 09:23 | PCM.PROG ---
Date/Time Seen Date Seen by Provider: 04/25/23 Time Seen by Provider: 08:50 Provider Provider: DUSTIN MÁRQUEZ PA-C, [facility] Chief Complaint Chief Complaint: ACUTE HYPOXIC RESPIRATORY FAILURE SECONDARY TO Subjective Subjective: Patient dropped to high 80s last night when trying to wean to RA, placed back on O2. Today patient has taken his O2 off and was ambulatory in his room. He was very confused last night, back to baseline today. Concerned about going to a on Wednesday. Objective Appearance: Positive No Apparent Distress and Other (+Alert. Oriented to person and place. ) Chest/Lungs: Positive Clear to Auscultation Bilaterally; Negative Rales, Rhonci or Wheezes Heart: Positive RRR GI/: Positive Soft, Nontender and Bowel Sounds Normal Neurological: Positive Cranial Nerves Intact, Alert and Muscle Strength 5/5 in Upper and Lower Extremities Bilaterally Vital Signs Vital Signs: Vital Signs: Last 24 Hours 04/24/23 09:26 04/24/23 11:43 04/24/23 12:00 Temperature 97.8 F Temperature Source Oral Pulse Rate 73 Respiratory Rate 18 Blood Pressure 98/55 L Blood Pressure Mean Blood Pressure Left Arm Blood Pressure Location Blood Pressure Position O2 Sat by Pulse Oximetry 90 L Oxygen Delivery Method Nasal Cannula Nasal Cannula Oxygen Flow Rate Height 5 ft 5 in Weight 167 lb 9.6 oz Telemetry Type Telemetry Monitoring Irregular Telemetry Rate (Approximate) EKG QRS Interval Telemetry Strip Reading 04/24/23 12:09 04/24/23 12:50 04/24/23 13:00 Temperature 98 F Temperature Source Oral Pulse Rate 75 Respiratory Rate 18 Blood Pressure Blood Pressure Mean Blood Pressure Left Arm 134/76 Blood Pressure Location Blood Pressure Position Supine O2 Sat by Pulse Oximetry 100 Oxygen Delivery Method Nasal Cannula Nasal Cannula Oxygen Flow Rate 2 Height 5 ft 11 in Weight 163 lb 4 oz Telemetry Type Remote Telemetry Telemetry Monitoring Continues Irregular Telemetry Rate (Approximate) 60-70 BPM EKG QRS Interval 0.10 Telemetry Strip Reading AFIB 04/24/23 13:44 04/24/23 13:57 04/24/23 14:00 Temperature 98 F Temperature Source Oral Pulse Rate 75 Respiratory Rate 18 Blood Pressure 134/76 Blood Pressure Mean 95 Blood Pressure Left Arm Blood Pressure Location Left Arm Blood Pressure Position Supine O2 Sat by Pulse Oximetry 100 Oxygen Delivery Method Nasal Cannula Nasal Cannula Nasal Cannula Oxygen Flow Rate 2 2 Height Weight Telemetry Type Telemetry Monitoring Irregular Telemetry Rate (Approximate) EKG QRS Interval Telemetry Strip Reading 04/24/23 15:00 04/24/23 16:00 04/24/23 16:18 Temperature Temperature Source Pulse Rate Respiratory Rate Blood Pressure Blood Pressure Mean Blood Pressure Left Arm Blood Pressure Location Blood Pressure Position O2 Sat by Pulse Oximetry Oxygen Delivery Method Nasal Cannula Nasal Cannula Nasal Cannula Oxygen Flow Rate Height Weight Telemetry Type Telemetry Monitoring Irregular Telemetry Rate (Approximate) EKG QRS Interval Telemetry Strip Reading 04/24/23 17:00 04/24/23 17:05 04/24/23 17:08 Temperature 97.5 F L Temperature Source Temporal Artery Scan Pulse Rate 64 Respiratory Rate 14 Blood Pressure 129/60 Blood Pressure Mean 83 Blood Pressure Left Arm Blood Pressure Location Left Arm Blood Pressure Position Supine O2 Sat by Pulse Oximetry 98 Oxygen Delivery Method Nasal Cannula Nasal Cannula Nasal Cannula Oxygen Flow Rate 2 Height Weight Telemetry Type Telemetry Monitoring Irregular Telemetry Rate (Approximate) EKG QRS Interval Telemetry Strip Reading 04/24/23 19:00 04/24/23 19:23 04/24/23 20:00 Temperature Temperature Source Pulse Rate Respiratory Rate Blood Pressure Blood Pressure Mean Blood Pressure Left Arm Blood Pressure Location Blood Pressure Position O2 Sat by Pulse Oximetry 95 Oxygen Delivery Method Room Air Room Air Room Air Oxygen Flow Rate Height Weight Telemetry Type Telemetry Monitoring Irregular Telemetry Rate (Approximate) EKG QRS Interval Telemetry Strip Reading 04/24/23 20:00 04/24/23 20:03 04/24/23 20:49 Temperature Temperature Source Pulse Rate Respiratory Rate Blood Pressure Blood Pressure Mean Blood Pressure Left Arm Blood Pressure Location Blood Pressure Position O2 Sat by Pulse Oximetry Oxygen Delivery Method Room Air Room Air Oxygen Flow Rate Height Weight Telemetry Type Remote Telemetry Telemetry Monitoring Continues Irregular Telemetry Rate (Approximate) 60-70 BPM EKG QRS Interval 0.09 Telemetry Strip Reading afib 04/24/23 20:49 04/24/23 22:00 04/24/23 23:00 Temperature 97.8 F Temperature Source Oral Pulse Rate 72 Respiratory Rate 20 Blood Pressure 121/55 L Blood Pressure Mean 77 Blood Pressure Left Arm Blood Pressure Location Left Arm Blood Pressure Position Supine O2 Sat by Pulse Oximetry 96 Oxygen Delivery Method Nasal Cannula Nasal Cannula Nasal Cannula Oxygen Flow Rate 1 Height Weight Telemetry Type Telemetry Monitoring Irregular Telemetry Rate (Approximate) EKG QRS Interval Telemetry Strip Reading 04/25/23 00:00 04/25/23 01:00 04/25/23 01:00 Temperature Temperature Source Pulse Rate Respiratory Rate Blood Pressure Blood Pressure Mean Blood Pressure Left Arm Blood Pressure Location Blood Pressure Position O2 Sat by Pulse Oximetry Oxygen Delivery Method Nasal Cannula Nasal Cannula Oxygen Flow Rate Height Weight Telemetry Type Remote Telemetry Telemetry Monitoring Continues Irregular Telemetry Rate (Approximate) 60-70 BPM EKG QRS Interval 0.09 Telemetry Strip Reading afib 04/25/23 02:00 04/25/23 03:00 04/25/23 04:00 Temperature Temperature Source Pulse Rate Respiratory Rate Blood Pressure Blood Pressure Mean Blood Pressure Left Arm Blood Pressure Location Blood Pressure Position O2 Sat by Pulse Oximetry Oxygen Delivery Method Nasal Cannula Nasal Cannula Nasal Cannula Oxygen Flow Rate Height Weight Telemetry Type Telemetry Monitoring Irregular Telemetry Rate (Approximate) EKG QRS Interval Telemetry Strip Reading 04/25/23 05:00 04/25/23 05:42 04/25/23 05:44 Temperature Temperature Source Pulse Rate Respiratory Rate Blood Pressure Blood Pressure Mean Blood Pressure Left Arm Blood Pressure Location Blood Pressure Position O2 Sat by Pulse Oximetry 94 L Oxygen Delivery Method Nasal Cannula Nasal Cannula Nasal Cannula Oxygen Flow Rate 1 Height Weight Telemetry Type Telemetry Monitoring Irregular Telemetry Rate (Approximate) EKG QRS Interval Telemetry Strip Reading 04/25/23 05:59 04/25/23 07:00 04/25/23 08:00 Temperature 97.7 F Temperature Source Oral Pulse Rate 57 L Respiratory Rate 18 Blood Pressure 114/57 L Blood Pressure Mean 76 Blood Pressure Left Arm Blood Pressure Location Left Arm Blood Pressure Position Supine O2 Sat by Pulse Oximetry 94 L Oxygen Delivery Method Nasal Cannula Nasal Cannula Nasal Cannula Oxygen Flow Rate 1 Height Weight Telemetry Type Telemetry Monitoring Irregular Telemetry Rate (Approximate) EKG QRS Interval Telemetry Strip Reading 04/25/23 08:16 Temperature Temperature Source Pulse Rate Respiratory Rate Blood Pressure Blood Pressure Mean Blood Pressure Left Arm Blood Pressure Location Blood Pressure Position O2 Sat by Pulse Oximetry Oxygen Delivery Method Nasal Cannula Oxygen Flow Rate Height Weight Telemetry Type Telemetry Monitoring Irregular Telemetry Rate (Approximate) EKG QRS Interval Telemetry Strip Reading Lab Results Lab Results: Lab Results: Last 24 Hours 04/25/23 04/24/23 04/24/23 05:43 19:30 09:47 WBC 2.33 L 2.75 L RBC 2.96 L 3.06 L Hgb 10.7 L 11.0 L Hct 31.9 L 33.2 L MCV 107.8 H 108.5 H MCH 36.1 H 35.9 H MCHC 33.5 33.1 RDW Coeff of José 12.6 13.0 Plt Count 73 L 86 L Immature Gran % (Auto) 0.4 0.4 Neut % (Auto) 72.1 60.2 Lymph % (Auto) 17.6 24.4 Reagan % (Auto) 9.9 13.1 H Eos % (Auto) 0.0 1.5 Baso % (Auto) 0.0 0.4 Neut # (Auto) 1.7 L 1.7 L Lymph # (Auto) 0.4 L 0.7 Reagan # (Auto) 0.2 L 0.4 Eos # (Auto) 0.0 0.0 Baso # (Auto) 0.0 0.0 Immature Gran # (Auto) 0.0 0.0 PT 11.3 H 10.7 INR 1.09 1.03 Sodium 139.0 137.3 Potassium 4.16 3.33 L Chloride 105.8 100.5 Carbon Dioxide 31.2 H 33.0 H Anion Gap 6.16 7.13 BUN 23.0 H 27.6 H Creatinine 0.91 1.23 H Estimated GFR (MDRD) 79.00 56.00 BUN/Creatinine Ratio 25.27 22.43 Glucose 114.3 H 99.4 Lactic Acid 0.97 Calcium 8.01 L 8.24 L Total Bilirubin 0.48 0.74 AST 42.5 41.4 ALT 21.5 18.8 Alkaline Phosphatase 111.1 111.1 Troponin I 0.021 Total Protein 6.22 L 6.89 Albumin 3.25 L 3.70 Globulin 2.97 3.19 Albumin/Globulin Ratio 1.09 1.15 Urine Color Yellow Urine Clarity Clear Urine pH 5.5 Ur Specific [place] 1.015 Urine Protein 2+ H Urine Glucose (UA) Trace H Urine Ketones Negative Urine Blood Negative Urine Nitrite Negative Urine Bilirubin Negative Urine Urobilinogen 2.0 H Ur Leukocyte Esterase Negative Ur Squamous Epith Cells 0-2 Urine Mucus Trace Influ A Molecular Assay Influ B Molecular Assay RSV Antigen SARS CoV-2 RNA Rapid ANNA 04/24/23 09:35 WBC RBC Hgb Hct MCV MCH MCHC RDW Coeff of José Plt Count Immature Gran % (Auto) Neut % (Auto) Lymph % (Auto) Reagan % (Auto) Eos % (Auto) Baso % (Auto) Neut # (Auto) Lymph # (Auto) Reagan # (Auto) Eos # (Auto) Baso # (Auto) Immature Gran # (Auto) PT INR Sodium Potassium Chloride Carbon Dioxide Anion Gap BUN Creatinine Estimated GFR (MDRD) BUN/Creatinine Ratio Glucose Lactic Acid Calcium Total Bilirubin AST ALT Alkaline Phosphatase Troponin I Total Protein Albumin Globulin Albumin/Globulin Ratio Urine Color Urine Clarity Urine pH Ur Specific [place] Urine Protein Urine Glucose (UA) Urine Ketones Urine Blood Urine Nitrite Urine Bilirubin Urine Urobilinogen Ur Leukocyte Esterase Ur Squamous Epith Cells Urine Mucus Influ A Molecular Assay Negative by naat Influ B Molecular Assay Negative by naat RSV Antigen Negative by naat SARS CoV-2 RNA Rapid ANNA Positive H Additional Comments Additional Comments: I have independently reviewed and interpreted the labs/EKGs/imaging ordered during this hospital stay. I have reviewed outside records that are available in our EMR that pertain to medical stay including imaging/notes/labs from previous visits. Active Medications Active Medications: Medications Generic Name Dose Route Start Last Admin Trade Name Freq PRN Reason Stop Dose Admin Acetaminophen 650 mg 04/24/23 12:23 Acetaminophen 325 Mg Tablet PO Q4H PRN Mild Pain Aspirin 81 mg 04/25/23 09:00 04/25/23 09:08 Aspirin 81 Mg Tablet. PO 81 mg DAILYWM2 ZOË Administration Carvedilol 3.125 mg 04/24/23 21:00 04/25/23 09:12 Carvedilol 3.125 Mg Tablet PO 3.125 mg BIDWM2 ZOË Administration Dexamethasone Sodium Phosphate 6 mg 04/25/23 09:00 04/25/23 09:09 Dexamethasone Sod Phos 10 Mg/Ml Inj IVP 6 mg DAILY ZOË Administration Donepezil HCl 10 mg 04/24/23 21:00 04/24/23 20:18 Donepezil Hcl 10 Mg Tablet PO 10 mg BEDTIME ZOË Administration Doxazosin Mesylate 8 mg 04/25/23 09:00 04/25/23 09:08 Doxazosin Mesylate 2 Mg Tablet PO 8 mg DAILY ZOË Administration Enoxaparin Sodium 40 mg 04/25/23 09:00 04/25/23 09:09 Enoxaparin Sodium 40 Mg/0.4 Ml Syr SUBCUT 40 mg DAILY ZOË Administration Furosemide 40 mg 04/25/23 09:00 04/25/23 09:12 Furosemide 40 Mg Tablet PO 40 mg QDAC2 ZOË Administration Guaifenesin 600 mg 04/25/23 09:00 04/25/23 09:08 Guaifenesin 600 Mg Tablet.Er PO 600 mg Q12HR ZOË Administration Remdesivir 100 mg/ Sodium 100 mls @ 200 mls/hr 04/25/23 09:00 04/25/23 09:10 Chloride IV 04/28/23 09:29 200 mls/hr DAILY ZOË Administration Memantine 10 mg 04/24/23 21:00 04/25/23 09:09 Memantine Hcl 10 Mg Tablet PO 10 mg BID ZOË Administration Ondansetron HCl 4 mg 04/24/23 12:23 Ondansetron Hcl/Pf 4 Mg/2 Ml Sdv IVP Q6H PRN Nausea / Vomiting Pantoprazole Sodium 40 mg 04/25/23 09:00 04/25/23 09:12 Pantoprazole Sodium 40 Mg Tablet.Dr PO 40 mg QDAC2 ZOË Administration Potassium Chloride 20 meq 04/25/23 09:00 04/25/23 09:08 Potassium Chloride 20 Meq Tab PO 20 meq DAILYWM2 ZOË Administration Pramipexole Dihydrochloride 1 mg 04/24/23 21:00 04/24/23 20:17 Pramipexole Di-Hcl 1 Mg Tablet PO 1 mg BEDTIME ZOË Administration Pramipexole Dihydrochloride 0.5 mg 04/24/23 21:00 04/24/23 20:17 Pramipexole Di-Hcl 0.25 Mg Tablet PO 0.5 mg BEDTIME ZOË Administration Pravastatin Sodium 40 mg 04/24/23 21:00 04/24/23 20:17 Pravastatin Sodium 40 Mg Tablet PO 40 mg BEDTIME ZOË Administration Sodium Chloride 1 syr 04/24/23 21:00 04/25/23 05:39 0.9% Sodium Chloride 10 Ml Disp.Syrin IVF 1 syr Q8HR ZOË Administration Plan Plan: 1. Acute hypoxic respiratory failure in setting of covid 19 - RT consult, wean O2 when able. 2. Covid 19 - CTA negative for acute findings. Duonebs prn. Dexamethasone daily (day2) and remdesivir (day 2). Covid isolation. 3. A fib, rate controlled - Cont home meds. Pt stopped xarelto, documented in pcp note. 4. BPH - Cont home meds 5. Dementia - Cont home meds 6. GERD - Cont home meds 7. Hyperlipidemia - Cont home meds 8. Heart failure with mildly reduced EF - cont lasix. Last echo 06/2021 showed reduced EF of 44% Dispo: Pt would benefit from completing 3 days of remdesivir. Monitor O2 today while weaning to RA. Pt states he would feel more comfortable staying one more night as well. Pt is from assisted living and is unclear on who checks on him regularly. Review Statement Review Statement: I have personally discussed and reviewed the patient's visit/currently labs/imaging/decision making with Dr. Cha, my supervising attending. Greater that 50 minutes spent with patient, 50% of the time spent with this patient was devoted to counseling and coordination of care.
[2023-04-25] MEDS ORDERED: BENADRYL PO PRN (18:57)
[2023-04-25] MEDS: MIRAPEX PO SCH ×2 (20:06→20:07)
[2023-04-25] MEDS: ARICEPT PO SCH (20:07)
[2023-04-25] MEDS: PRAVACHOL PO SCH (20:07)
[2023-04-26] MEDS: PROTONIX PO SCH (05:38)
[2023-04-26] MEDS: LASIX TAB PO SCH (05:39)
[2023-04-26 05:53] LABS: HEMATOCRIT 31.9 % (42.0-52.0); HEMOGLOBIN 10.3 g/dl (14.0-18.0); IMMATURE GRANULOCYTE % (AUTO) 0.3 % (0.0-5.0); LYMPHOCYTES # (AUTO) 0.5 K/uL (0.60-3.4); LYMPHOCYTES % (AUTO) 14.2 (10.0-50.0); MEAN CORPUSCULAR HEMOGLOBIN 35.3 pg (27.0-31.0); MEAN CORPUSCULAR HGB CONC 32.3 (31.8-35.4); MEAN CORPUSCULAR VOLUME 109.2 fl (80.0-94.0); MONOCYTES # (AUTO) 0.4 K/uL (0.4-2.0); MONOCYTES % (AUTO) 10.3 (0-10); NEUTROPHILS # (AUTO) 2.7 K/ul (2.0-6.9); NEUTROPHILS % (AUTO) 75.2 % (42.2-75.2); PLATELET COUNT 89 10^3/uL (140-440); RDW COEFFICIENT OF VARIATION 12.8 % (11.6-14.8); RED BLOOD COUNT 2.92 10^6/ul (4.70-6.10); WHITE BLOOD COUNT 3.58 K/ul (4.2-10.2)
[2023-04-26 06:06] LABS: ALANINE AMINOTRANSFERASE 21.3 U/L (0-50); ALBUMIN 3.15 g/dL (3.5-5.0); ALKALINE PHOSPHATASE 103.8 U/L (56-119); ASPARTATE AMINO TRANSFERASE 36.9 U/L (17-59); BILIRUBIN,TOTAL 0.39 mg/dL (0.2-1.3); BLOOD UREA NITROGEN 27.6 mg/dL (9-20); CALCIUM 7.96 mg/dL (8.4-10.2); CARBON DIOXIDE 30.2 mmol/L (22-30.0); CHLORIDE 106.9 mmol/L (98-107); CREATININE 1.09 mg/dL (0.60-1.10); GLUCOSE 123.2 mg/dL (74-106); POTASSIUM 4.22 mmol/L (3.5-5.1); SODIUM 140.1 mmol/L (134.5-145); TOTAL PROTEIN 5.97 g/dL (6.3-8.2)
[2023-04-26 07:59] LABS: PROTHROMBIN TIME 11.4 SEC (9.3-11.0)
[2023-04-26] MEDS: K-DUR PO SCH (08:22)
[2023-04-26] MEDS: CARDURA PO SCH (08:22)
[2023-04-26] MEDS: COREG PO SCH (08:22)
[2023-04-26] MEDS: NAMENDA PO SCH (08:22)
[2023-04-26] MEDS: MUCINEX PO SCH (08:22)
[2023-04-26] MEDS: ASPIRIN EC PO SCH (08:22)
[2023-04-26] MEDS: LOVENOX SUBCUT SCH (08:26)
[2023-04-26] MEDS: DECADRON IVP SCH (08:43)
[2023-04-26] MEDS: VEKLURY 100 MG in SODIUM CHLORIDE 100ML 100 ML IV SCH (08:57)
--- NOTE | 2023-04-26 09:51 | DCSUM ---
Admission Date Admission Date: 04/24/23 Discharge Date Discharge Date: 04/26/23 Admission Diagnosis Admission Diagnosis: 1. Acute hypoxic respiratory failure in setting of covid 19 2. Covid 19 3. A fib, rate controlled 4. BPH 5. Dementia 6. GERD 7. Hyperlipidemia 8. Heart failure with mildly reduced EF Discharge Diagnosis Discharge Diagnosis: 1. Acute hypoxic respiratory failure in setting of covid 19 - Resolved 2. Covid 19 - Improving 3. A fib, rate controlled - Chronic, stable 4. BPH - Chronic, stable 5. Dementia - Chronic, stable 6. GERD - Chronic, stable 7. Hyperlipidemia - Chronic, stable 8. Heart failure with mildly reduced EF - Chronic, stable Hospital Provider Hospital Provider: DUSTIN MÁRQUEZ PA-C, [facility] Primary Care Physician Primary Care Physician: LIN ACUÑA MD Summary of History and Physical Summary of History and Physical: Patient is a 87 year old male from [facility] assisted living with pmhx of a fib, MDS, dementia, GERD, COPD, chronic anemia, hyperlipidemia, CKD who presented to ER with 3 day history of runny eyes and nose. He's had a cough and worsening SOB. He does not wear O2 at baseline. He states he's had to use his cane more from feeling weak. He also had some diarrhea but this has since resolved. He thinks he may have had covid vaccine in the past but he's unsure. He denies chest pain. In the ER he was found to have an O2 of 90%. CTA negative for acute findings. He was placed on 2L with improvement to 95%. He was given dexamethasone. Discussed with patient risks vs benefits of remdesivir, and he would like to proceed. Hospital Course Subjective: Initially, patient was requiring 2L of oxygen. Sat was dropping down into the 80s at night time. He was weaned to RA yesterday and tolerated well throughout the night last night. In addition to oxygen, he received decadron daily and remdesivir x 3 days. Duonebs were ordered prn as well. Labs stable. All home medications were continued and no changes were made. D/c home to assited living with steroid taper and mucinex x 7 days. Appearance: Pleasant, No Apparent Distress and Alert HEENT: MMM and Supple CVS: No Murmur and No Rubs Abdomen: Soft and Non-Tender Respiratory: No Dyspnea Extremities: No Calf Tenderness and Other (trace edema BLE) Vital Signs: Most Recent Vital Signs Temperature 97.9 F 04/26/23 05:24 Temperature Source Oral 04/26/23 05:24 Temperature Source Oral 04/24/23 09:26 Pulse Rate 66 04/26/23 05:24 Respiratory Rate 18 04/26/23 05:24 Blood Pressure 129/70 04/26/23 05:24 Blood Pressure Mean 89 04/26/23 05:24 Blood Pressure Left Arm 134/76 04/24/23 12:09 Blood Pressure Location Left Arm 04/26/23 05:24 Blood Pressure Position Supine 04/26/23 05:24 O2 Sat by Pulse Oximetry 95 04/26/23 05:24 Oxygen Delivery Method Room Air 04/26/23 09:00 Oxygen Flow Rate 1 04/25/23 10:00 Height 5 ft 11 in 04/24/23 12:09 Weight 163 lb 4 oz 04/24/23 12:09 Telemetry Type Remote Telemetry 04/26/23 01:00 Telemetry Monitoring Continues 04/26/23 01:00 Irregular Telemetry Rate (Approximate) 60-70 BPM 04/26/23 01:00 Telemetry Heart Rate 68 03/14/21 01:00 Telemetry SPO2 90 L 08/05/16 01:00 EKG QRS Interval 0.08 04/26/23 01:00 Telemetry Strip Reading AFIB 04/26/23 01:00 Lab Results Last 24 Hours: 04/26/23 04/26/23 06:00 05:30 WBC 3.58 L RBC 2.92 L Hgb 10.3 L Hct 31.9 L MCV 109.2 H MCH 35.3 H MCHC 32.3 RDW Coeff of José 12.8 Plt Count 89 L Immature Gran % (Auto) 0.3 Neut % (Auto) 75.2 Lymph % (Auto) 14.2 [place] % (Auto) 10.3 H Eos % (Auto) 0.0 Baso % (Auto) 0.0 Neut # (Auto) 2.7 Lymph # (Auto) 0.5 L [place] # (Auto) 0.4 Eos # (Auto) 0.0 Baso # (Auto) 0.0 Immature Gran # (Auto) 0.0 PT 11.4 H INR 1.10 Sodium 140.1 Potassium 4.22 Chloride 106.9 Carbon Dioxide 30.2 H Anion Gap 7.22 BUN 27.6 H Creatinine 1.09 Estimated GFR (MDRD) 64.00 BUN/Creatinine Ratio 25.32 Glucose 123.2 H Calcium 7.96 L Total Bilirubin 0.39 AST 36.9 ALT 21.3 Alkaline Phosphatase 103.8 Total Protein 5.97 L Albumin 3.15 L Globulin 2.82 Albumin/Globulin Ratio 1.11 Discharge Instructions Discharge Planning: Discharge Planning > 40 minutes If patient is discharged with left ventricular systolic dysfunction: NA Discharged with a beta prakash? [] If no, why not? [] Discharged with an gama/arb? [] If no, why not? [] DX: ACUTE HYPOXIC RESPIRATORY FAILURE, COVID-19 ACTIVITY TOLERATED REGULAR DIET FOLLOW-UP WITH PCP THIS WEEK RX: MUCINEX, TAPERDEX Discharge Medications: Medications at Discharge (Home Meds & RX) donepezil 10 mg tablet (Aricept) 10 mg PO BEDTIME #90 tabs 08/21/22 memantine 10 mg tablet 10 mg PO BID 08/21/22 potassium chloride 20 mEq tablet,extended release(part/cryst) (Klor-Con M) 20 meq PO QDAY #90 tabs 09/07/22 aspirin 81 mg tablet,delayed release (Adult Low Dose Aspirin) 81 mg PO QDAY 10/02/22 pramipexole 1.5 mg tablet 1.5 mg PO .BEDTIME #90 tabs 01/25/23 carvedilol 3.125 mg tablet 3.125 mg PO BID 02/03/23 furosemide 40 mg tablet 40 mg PO QDAY 02/03/23 pantoprazole 40 mg tablet,delayed release See Rx Instructions .Route .COMPLEX #90 tabs 03/22/23 doxazosin 8 mg tablet 8 mg PO DAILY #90 tabs 04/08/23 diclofenac sodium 1 % topical gel 2 g topical QID #100 grams 04/12/23 hydrocortisone 2.5 % topical ointment 1 applic topical BID #20 grams 04/12/23 pravastatin 40 mg tablet 40 mg PO BEDTIME #90 tabs 04/12/23 dexamethasone 1.5 mg (21 tabs) tablets in a dose pack (TaperDex) See Rx Instructions PO .COMPLEX #21 ea 04/26/23 guaifenesin 600 mg tablet, extended release 12 hr (Mucinex) 600 mg PO Q12HR #14 tabs 04/26/23 Discharge Plan Discharge Discharge Orders: Discharge Patient (ONCE); Ordered 04/26/23 Ordered By: OTTO LOZANO Activity Restrictions/Additional Instructions: Regular diet Activity as tolerated Follow-up with PCP this week Medications: Decadron taper pack - take as directed until completed Mucinex twice a day for 7 days Instructions: COVID-19 (Coronavirus Disease 2019)(GEN) Patient Disposition: DISCHARGE TO ASSIST LIVING Prescriptions: New guaifenesin [Mucinex] 600 mg Tablet Extended Release 12hr 600 mg PO Q12HR Qty: 14 0RF dexamethasone [TaperDex] 1.5 mg (21 tabs) tablets,dose pack See Rx Instructions .ROUTE .COMPLEX Qty: 21 0RF Rx Instructions: orally per package directions Continued potassium chloride [Klor-Con M20] 20 mEq tablet,ER particles/crystals 20 meq PO QDAY Qty: 90 1RF pramipexole 1.5 mg tablet 1.5 mg PO .BEDTIME Qty: 90 1RF pantoprazole 40 mg tablet,delayed release (DR/EC) See Rx Instructions .ROUTE .COMPLEX Qty: 90 1RF Dose Instruction: TAKE 1 TABLET EVERY MORNING Rx Instructions: TAKE 1 TABLET EVERY MORNING doxazosin 8 mg tablet 8 mg PO DAILY Qty: 90 1RF furosemide 40 mg tablet 40 mg PO QDAY Rx Instructions: ONE TABLET DAILY AND ONE EXTRA EVERY OTHER DAY carvedilol 3.125 mg tablet 3.125 mg PO BID Rx Instructions: Take 1 Tablet Twice A Day with Meals/Food pravastatin 40 mg tablet 40 mg PO BEDTIME Qty: 90 1RF diclofenac sodium 1 % gel 2 g topical QID Qty: 100 3RF Rx Instructions: apply to single elbow, wrist or hand; for hand includes palm/fingers/back of hand hydrocortisone 2.5 % ointment 1 applic topical BID Qty: 20 1RF memantine 10 mg tablet 10 mg PO BID donepezil [Aricept] 10 mg tablet 10 mg PO BEDTIME Qty: 90 1RF aspirin [Adult Low Dose Aspirin] 81 mg tablet,delayed release (DR/EC) 81 mg PO QDAY Did you review [place] IT ASSISTANT for ALL controlled substances?: No Discussed opioids are addictive and Narcan is available by prescription or from pharmacy.: No Condition: Stable
[2023-04-26 10:23] VITALS: BP 130/71; PULSE 55; RESP 18; TEMP 97.4
== END 2023-04-26 13:00 | disposition home or self-care (01) ==
LOC: MEDSURG B 09:08 → ED 09:08 → MEDSURG B 12:01
PROVIDERS: ADMIT Hospitalist; ATTEND Physician Assistant
DX: K21.9 Gastro-esophageal reflux disease without esophagitis; E78.5 Hyperlipidemia, unspecified; J43.9 Emphysema, unspecified; D72.819 Decreased white blood cell count, unspecified; I50.22 Chronic systolic (congestive) heart failure; Z95.1 Presence of aortocoronary bypass graft; F03.90 Unspecified dementia, unspecified severity, without behavioral disturbance, psychotic disturbance, mood disturbance, and anxiety; I48.91 Unspecified atrial fibrillation; N40.0 Benign prostatic hyperplasia without lower urinary tract symptoms; U07.1 COVID-19; J96.01 Acute respiratory failure with hypoxia